=== PATIENT | male | born 1950 | race Caucasian/White ===

== ENCOUNTER 2019-07-08 23:21 | Observation (INO) | payer BC, MEDICARE ==
--- NOTE | 2019-07-09 01:24 | ED ---
Chest Pain HPI - General Chief Complaint: Arrhythmia/Palpitations Stated Complaint: afib Time Seen by Provider: 07/08/19 23:40 Source: EMS Mode of arrival: EMS Limitations: no limitations - History of Present Illness Initial Comments: 's patient is a 69-year-old man who presents as a transfer from [facility]. The patient had gone there this evening to be evaluated for number of symptoms that had developed over the course of the afternoon and evening. The patient states that he initially had started feeling a bit of fatigue in the afternoon. He had subsequently gone to a golf outing. While he was there he noticed that his breathing felt a little funny, he was having some pains into his left shoulder and scapular area. He was also noticing that he was having some substernal chest discomfort that he felt was like reflux or gas. The patient on arriving home had his preempted emergency department. He was there the found he was in atrial fibrillation with a rate above 200. The patient was not aware of having any palpitations. The patient had been started on Cardizem receiving a 20 mg bolus and he was also given 2.5 mg of Lopressor, also received heparin bolus.. The patient then appeared to revert to sinus rhythm and his symptoms also resolved. When I interview the patient, he states that he is feeling much better though there is just a touch of fatigue remaining. No chest pain, dyspnea, diaphoresis, nausea or vomiting when I am seeing the patient. MD Complaint: chest pain -: hour(s) Onset: during exertion Pain Location: substernal, left chest Pain Radiation: LUE, neck Severity: moderate Quality: aching Consistency: now resolved Improves With: nothing Worsens With: nothing Anginal Symptoms: nausea, dyspnea Treatments Prior to Arrival: aspirin, other (Cardizem, heparin) - Related Data Home Medications Medication Instructions Recorded Confirmed Allopurinol [Zyloprim] 300 mg PO DAILY@0700 07/09/19 07/09/19 Aspirin EC [Ecotrin Low Dose] 81 mg PO DAILY 07/09/19 07/09/19 Atorvastatin [Lipitor] 40 mg PO HS 07/09/19 07/09/19 Empagliflozin [Jardiance] 25 mg PO W/BRKFST 07/09/19 07/09/19 Garlic 1 tab PO DAILY 07/09/19 07/09/19 Lisinopril [Zestril] 20 mg PO DAILY@0700 07/09/19 07/09/19 Omeprazole 40 mg PO DAILY@0700 07/09/19 07/09/19 Pioglitazone [Actos] 15 mg PO W/SUPPER 07/09/19 07/09/19 Testosterone Cypionate 200 mg IM Q30D 07/09/19 07/09/19 [Depo-Testosterone] Turmeric Root Extract [Turmeric] 500 mg PO DAILY 07/09/19 07/09/19 sitaGLIPtin [Januvia] 100 mg PO W/LUNCH 07/09/19 07/09/19 Previous Rx's Medication Instructions Recorded Apixaban [Eliquis] 5 mg PO BID #60 tab 07/10/19 Allergies Allergy/AdvReac Type Severity Reaction Status Date / Time No Known Allergies Allergy Verified 07/09/19 07:12 Review of Systems ROS Statement: Those systems with pertinent positive or pertinent negative responses have been documented in the HPI. ROS Other: All systems not noted in ROS Statement are negative. Constitutional: Denies: fever, chills Respiratory: Reports: dyspnea. Denies: cough Cardiovascular: Reports: chest pain. Denies: palpitations, orthopnea, edema, syncope Gastrointestinal: Reports: nausea. Denies: abdominal pain, vomiting Genitourinary: Denies: dysuria, hematuria Musculoskeletal: Denies: back pain Skin: Denies: rash Neurological: Denies: headache, weakness, numbness Psychiatric: Reports: anxiety Past Medical History Past Medical History: Atrial Fibrillation, Cancer, Diabetes Mellitus History of Any Multi-Drug Resistant Organisms: None Reported Past Surgical History: No Surgical Hx Reported Past Psychological History: No Psychological Hx Reported Smoking Status: Light tobacco smoker Past Alcohol Use History: Occasional Past Drug Use History: None Reported General Exam Limitations: no limitations General appearance: alert, in no apparent distress Head exam: Present: atraumatic, normocephalic Eye exam: Present: normal appearance. Absent: scleral icterus, conjunctival injection Neck exam: Present: normal inspection Respiratory exam: Present: normal lung sounds bilaterally. Absent: respiratory distress, wheezes, rales, rhonchi, stridor Cardiovascular Exam: Present: regular rate, normal rhythm, normal heart sounds. Absent: systolic murmur, diastolic murmur, rubs, gallop GI/Abdominal exam: Present: soft. Absent: distended, tenderness, guarding, rebound, rigid, mass Extremities exam: Present: normal inspection, normal capillary refill. Absent: pedal edema, calf tenderness Back exam: Present: normal inspection Neurological exam: Present: alert Skin exam: Present: warm, dry, intact, normal color. Absent: rash Course Vital Signs 07/08/19 07/09/19 07/09/19 23:30 00:00 00:30 Temperature 98.7 F Pulse Rate 63 69 64 Respiratory 26 H 12 18 Rate Blood Pressure 110/95 128/72 124/77 O2 Sat by Pulse 98 96 98 Oximetry 07/09/19 01:00 Temperature Pulse Rate 69 Respiratory 20 Rate Blood Pressure 123/72 O2 Sat by Pulse 96 Oximetry Disposition Clinical Impression: Atrial fibrillation with rapid ventricular response, Chest pain Disposition: ADMITTED IP TO THIS HOSP Condition: Fair Is patient prescribed a controlled substance at d/c from ED?: No
[2019-07-09 03:23] VITALS: BMI 53.1
[2019-07-09 06:37] LABS: Glucose,Whole Blood 97 mg/dL (75-99)
[2019-07-09 07:53] LABS: Basophils % (A) 0 %; Eosinophils # (A) 0.1 k/uL (0-0.7); Eosinophils % (A) 2 %; HCT 51.3 % (39.0-53.0); HGB 16.5 gm/dL (13.0-17.5); Lymphocytes # (A) 1.1 k/uL (1.0-4.8); Lymphocytes % (A) 12 %; MCH 31.9 pg (25.0-35.0); MCHC 32.3 g/dL (31.0-37.0); MCV 98.9 fL (80.0-100.0); Macrocytosis Slight; Mean Platelet Volume 7.2; Monocytes # (A) 0.9 k/uL (0-1.0); Monocytes % (A) 10 %; Neutrophils # (A) 6.4 k/uL (1.3-7.7); Neutrophils % (A) 73 %; Platelet Count 177 k/uL (150-450); RBC 5.19 m/uL (4.30-5.90); RDW 14.6 % (11.5-15.5); WBC 8.8 k/uL (3.8-10.6)
[2019-07-09] MEDS: SODIUM CHLORIDE 0.9% 1,000 ML IV SCH ×4 (07:56→21:17)
[2019-07-09 08:03] LABS: Calcium 9.1 mg/dL (8.4-10.2)
[2019-07-09] MEDS: NITROGLYCERIN SL TABS 0.4 MG TAB SUBLINGUAL PRN ×3 (08:52→09:02)
[2019-07-09] MEDS ORDERED: HEPARIN SODIUM,PORCINE 5,000 UNIT/ML 1 ML VIAL IV PRN (09:07)
[2019-07-09] MEDS ORDERED: HEPARIN SODIUM,PORCINE 5,000 UNIT/ML 1 ML VIAL IV ONE (09:07)
--- NOTE | 2019-07-09 09:17 | P.CRDCN ---
History of Present Illness Consult date: 07/09/19 Requesting physician: Cristal Clifford Consult reason: atrial fibrillation Chief complaint: Chest pressure History of present illness: His is a pleasant 69-year-old gentleman with history of hypertension, hyperlipidemia, diabetes, occasionally he states that he smokes a cigar when he coughs. He presented to [facility] yesterday with symptoms of chest tightness with radiation into his left arm, and across his posterior scapula area. His symptoms initially started around 2:00 while he was at work, he still went out and played golf, he states he was on the 11th: And chest tightness became worse, he did have discomfort in his left arm as well as an scapula area again. He also states that he noticed himself to be short of breath with this. He was quite concerned about the way he was feeling so he went to [facility] for further evaluation and treatment. EKG on presentation there showed atrial fibrillation with a rapid ventricular response, ST depression noted in t he lateral leads, his heart rate on presentation there did go up to the 200 range. Patient was initiated on IV Cardizem and IV heparin, shortly after the Cardizem was initiated patient did convert to normal sinus rhythm. Subsequent Ekg showed normal sinus rythm w ST changes in inferior lateral lead. The patient denies any prior history of atrial fibrillation, he does state that he had seen Dr. Cavanaugh in the office previously and underwent stress testing but this was several years ago according to the patient. Chest x-ray performed at [facility] did not reveal any active cardiopulmonary disease. White blood cell count 8.3, hemoglobin 17, platelet count 185. Sodium 140, potassium 4.5, BUN 26, creatinine 2.2, magnesium 2.1, BNP 138 troponin 0.018. Blood pressure on arrival here 125/70 with a heart rate in the 70s, afebrile, 94% on room air. Patient is complaining of midsternal chest pressure and heaviness this morning, he is in a normal sinus rhythm, we did obtain an EKG shows normal sinus rhythm with no acute changes. White blood cell count is normal, hemoglobin 16.5, plat elet count 177. Sodium 140, potassium 4.0, BUN 24 and creatinine 1.2, troponins 0.013, 0.020. At [facility] the patient was initiated on IV heparin as well as IV Cardizem, he did received a one-time dose of IV Lopressor. He is not on heparin here. Past Medical History Past Medical History: Atrial Fibrillation, Cancer, Diabetes Mellitus History of Any Multi-Drug Resistant Organisms: None Reported Past Surgical History: No Surgical Hx Reported Past Anesthesia/Blood Transfusion Reactions: No Reported Reaction Past Psychological History: No Psychological Hx Reported Smoking Status: Light tobacco smoker Past Alcohol Use History: Occasional Past Drug Use History: None Reported Medications and Allergies Home Medications Medication Instructions Recorded Confirmed Type Allopurinol [Zyloprim] 300 mg PO DAILY@0700 07/09/19 07/09/19 History Aspirin EC [Ecotrin Low Dose] 81 mg PO DAILY 07/09/19 07/09/19 History Atorvastatin [Lipitor] 40 mg PO HS 07/09/19 07/09/19 History Empagliflozin [Jardiance] 25 mg PO W/BRKFST 07/09/19 07/09/19 History Garlic 1 tab PO DAILY 07/09/19 07/09/19 History Lisinopril [Zestril] 20 mg PO DAILY@0700 07/09/19 07/09/19 History Omeprazole 40 mg PO DAILY@0700 07/09/19 07/09/19 History Pioglitazone [Actos] 15 mg PO W/SUPPER 07/09/19 07/09/19 History Testosterone Cypionate 200 mg IM Q30D 07/09/19 07/09/19 History [Depo-Testosterone] Turmeric Root Extract [Turmeric] 500 mg PO DAILY 07/09/19 07/09/19 History sitaGLIPtin [Januvia] 100 mg PO W/LUNCH 07/09/19 07/09/19 History Allergies Allergy/AdvReac Type Severity Reaction Status Date / Time No Known Allergies Allergy Verified 07/09/19 07:12 Physical Exam Vitals: Vital Signs Temp Pulse Pulse Resp BP BP Pulse Ox 07/09/19 07:56 98.5 F 79 16 125/70 94 L 07/09/19 04:00 98.5 F 60 16 117/62 96 07/09/19 01:59 98.2 F 54 L 16 116/64 95 07/09/19 01:00 69 20 123/72 96 07/09/19 00:30 64 18 124/77 98 07/09/19 00:00 69 12 128/72 96 07/08/19 23:30 98.7 F 63 26 H 110/95 98 Intake and Output 07/08/19 07/09/19 07/09/19 22:59 06:59 14:59 Intake Total 300 240 Balance 300 240 Intake: Oral 300 240 Other: # Voids 2 Weight 95.708 kg PHYSICAL EXAMINATION: GENERAL:69-year-old gentleman in no acute distress at the time of my examination HEENT: Head is atraumatic, normocephalic. Pupils equal, round. Sclera anicteric. Conjunctiva are clear. Mucous membranes of the mouth are moist. Neck is supple. There is no elevated jugular venous pressure. No carotid bruit is heard. HEART EXAMINATION: Heart S1 and S2 normal no murmur or gallop heard CHEST EXAMINATION: Lungs reveal fine rales to bilateral bases. ABDOMEN: Soft, nontender. Bowel sounds are heard. No organomegaly noted. EXTREMITIES: 2+ peripheral pulses with no evidence of peripheral edema and no calf tenderness noted. NEUROLOGIC patient is awake, alert and oriented 3 . Results 07/09/19 07:33 07/09/19 07:33 Cardiac Enzymes 07/09/19 07/09/19 Range/Units 01:44 07:33 Troponin I 0.013 0.020 (0.000-0.034) ng/mL CBC 07/09/19 Range/Units 07:33 WBC 8.8 (3.8-10.6) k/uL RBC 5.19 (4.30-5.90) m/uL Hgb 16.5 (13.0-17.5) gm/dL Hct 51.3 (39.0-53.0) % Plt Count 177 (150-450) k/uL Comprehensive Metabolic Panel 07/09/19 Range/Units 07:33 Sodium 140 (137-145) mmol/L Potassium 4.0 (3.5-5.1) mmol/L Chloride 109 H (98-107) mmol/L Carbon Dioxide 22 (22-30) mmol/L BUN 24 H (9-20) mg/dL Creatinine 1.24 (0.66-1.25) mg/dL Glucose 126 H (74-99) mg/dL Calcium 9.1 (8.4-10.2) mg/dL Current Medications Generic Name Dose Route Start Last Admin Trade Name Marlee PRN Reason Stop Dose Admin Aspirin 325 mg 07/10/19 09:00 Aspirin PO DAILY [facility] Sodium Chloride 1,000 mls @ 20 mls/hr 07/08/19 23:45 07/09/19 07:56 Saline 0.9% IV Not Given .Q24H [facility] Nitroglycerin 0.4 mg 07/08/19 23:59 07/09/19 08:57 Nitrostat SUBLINGUAL 0.4 mg Q5M PRN Administration Chest Pain Intake and Output 07/08/19 07/09/19 07/09/19 22:59 06:59 14:59 Intake Total 300 240 Balance 300 240 Intake: Oral 300 240 Other: # Voids 2 Weight 95.708 kg 07/09/19 07:33 07/09/19 07:33 EKG Interpretations (text) Initial EKG showed atrial fibrillation with rapid ventricular response, ST depression noted in the lateral leads. EKG performed this morning shows normal sinus rhythm with ST changes in inferior lateral leads Assessment and Plan Plan: Assessment and plan #1 symptoms of chest pressure with radiation to the left arm and across the scapula with associated shortness of breath, likely secondary to A. fib with RVR, cannot completely rule out acute coronary syndrome. Troponin at [place] 0.018. Troponin 0.014 and 0.020. #2 atrial fibrillation with rapid ventricular response, paroxysmal, new onset #3 hypertension #4 hyperlipidemia #5 diabetes #6 nicotine dependence Plan We will obtain a stat chest x-ray as well as BNP level, TSH, and d-dimer. Initiate IV heparin per protocol. Start the patient on Lipitor 80. Continue aspirin, and initiate low-dose beta karina. Obtain subsequent troponin. Stat echocardiogram with Doppler study. Patient is in normal sinus rhythm with ST-T wave changes in the inferior lateral leads, and continues to have chest pressure, he has been advised to undergo an urgent cardiac catheterization, the risks and the benefits were explained to the patient in detail and he is willing to proceed. Further recommendations will be based on these findings and the patient's clinical course. DNP note has been reviewed, I agree with a documented findings and plan of care. Patient was seen and examined.
[2019-07-09] MEDS: HEPARIN SOD,PORK IN 0.45% NACL 25,000 UNIT in 0.45% NACL 1 250ML.BAG IV SCH (09:26)
[2019-07-09] MEDS ORDERED: ASPIRIN 325 MG TAB PO STA (09:33)
[2019-07-09] MEDS ORDERED: ATORVASTATIN 80 MG TAB PO STA (09:34)
[2019-07-09 09:51] LABS: D-Dimer 0.27 mg/L FEU (<0.60); INR 0.9 (<1.2); Partial Thromboplastin Time 27.1 sec (22.0-30.0); Prothrombin Time 9.8 sec (9.0-12.0)
--- NOTE | 2019-07-09 10:02 | XR ---
EXAMINATION TYPE: XR chest 1V portable DATE OF EXAM: 07/09/2019 COMPARISON: Prior chest x-ray 07/08/2019 HISTORY: Shortness of breath, atrial fibrillation TECHNIQUE: Single frontal view of the chest is obtained. FINDINGS: There is no focal air space opacity, pleural effusion, or pneumothorax seen. The cardiac silhouette size is within normal limits. The osseous structures are intact. There are overlying car diac leads. Minimal strand-like density at the lung bases likely reflect subsegmental atelectatic dahiana nge. IMPRESSION: There may be some minimal basilar atelectatic change.
[2019-07-09] MEDS ORDERED: MIDAZOLAM PF (FBP) 2 MG/2 ML VIAL IVP ONE (10:20)
[2019-07-09] MEDS ORDERED: LIDOCAINE 2% INJ 20 MG/ML SQ ONE ×2 (10:21)
[2019-07-09] MEDS ORDERED: SODIUM CHLORIDE 0.9% 1,000 ML IV ONE (10:28)
[2019-07-09] MEDS ORDERED: IOPAMIDOL-370 100ML BTL INJ ONE (10:33)
[2019-07-09] MEDS ORDERED: RX INFO: IV CONTRAST WAS GIVEN 1 EACH MISC MISCELLANE PRN (10:39)
--- NOTE | 2019-07-09 11:38 | CC ---
CARDIAC CATHETERIZATION REPORT INDICATION: Unstable angina. PROCEDURE NOTE: After obtaining informed consent, left heart catheterization and coronary angiogram are performed via the right femoral artery using standard Dalton catheters. The patient tolerated the procedure well without any obvious immediate complications. Patient received moderate conscious sedation. Total sedation time was 14 minutes. The patient will undergo Angio-Seal for hemostasis. FINDINGS: 1. HEMODYNAMICS: Left ventricular end-diastolic pressure is 8 to 12 mm. There is no significant gradient across the aortic valve. 2. LEFT VENTRICULOGRAM: The left ventriculogram is not performed. 3. ANGIOGRAPHIC DATA: Left Main Coronary Artery: Left main coronary artery appears mildly calcified but is free of significant stenosis. Divides into left anterior descending coronary artery and circumflex coronary artery. LAD and its branches are free of significant disease. Circumflex coronary artery which is a nondominant vessel in the very distal circumflex the vessel tapers and ends abruptly I do not know whether it is a natural anatomy or if it is a stump occlusion. I am going to have Dr. Taveras the on-call property insurance claims examiner review it. Right coronary artery is a large dominant vessel that shows 30% to 40% stenosis distally. CONCLUSION: Mild nonobstructive coronary artery disease. PLAN: Will review angiographic data with Dr. Taveras regarding the small distal circumflex coronary artery. Even if it is totally occluded, we will not be doing anything about it given how distal it is and how small a caliber of vessel it is. The patient does not have any troponin elevation, but I am told he had some wall motion abnormalities on the echo. MMODL / IJN: [id number] /
[2019-07-09 12:25] LABS: Glucose,Whole Blood 109 mg/dL (75-99)
[2019-07-09] MEDS: LINAGLIPTIN 5 MG TABLET PO SCH (12:28)
[2019-07-09 16:12] VITALS: RESP 16
[2019-07-09 17:01] LABS: Glucose,Whole Blood 123 mg/dL (75-99)
[2019-07-09] MEDS ORDERED: PIOGLITAZONE 15 MG TAB PO SCH (17:30)
[2019-07-09 20:55] LABS: Glucose,Whole Blood 123 mg/dL (75-99)
[2019-07-09] MEDS ORDERED: ATORVASTATIN 40 MG TAB PO SCH (21:00)
[2019-07-10 03:19] LABS: Anisocytosis Slight; Basophils % (A) 0 %; Eosinophils # (A) 0.2 k/uL (0-0.7); Eosinophils % (A) 2 %; HCT 48.7 % (39.0-53.0); HGB 15.5 gm/dL (13.0-17.5); Lymphocytes # (A) 1.4 k/uL (1.0-4.8); Lymphocytes % (A) 15 %; MCH 31.8 pg (25.0-35.0); MCHC 31.9 g/dL (31.0-37.0); MCV 99.7 fL (80.0-100.0); Macrocytosis Slight; Mean Platelet Volume 7.3; Monocytes # (A) 0.9 k/uL (0-1.0); Monocytes % (A) 9 %; Neutrophils % (A) 72 %; Platelet Count 150 k/uL (150-450); RBC 4.89 m/uL (4.30-5.90); RDW 16.2 % (11.5-15.5); WBC 9.8 k/uL (3.8-10.6)
[2019-07-10 03:38] LABS: Cholesterol 112 mg/dL (<200); HDL Cholesterol 56 mg/dL (40-60); LDL Cholesterol,Calculated 41 mg/dL (0-99); Triglycerides 77 mg/dL (<150)
[2019-07-10 06:23] LABS: Glucose,Whole Blood 107 mg/dL (75-99)
[2019-07-10] MEDS ORDERED: ALLOPURINOL 300 MG TAB PO SCH (07:00)
[2019-07-10] MEDS ORDERED: PANTOPRAZOLE 40 MG TABLET PO SCH (07:00)
[2019-07-10] MEDS ORDERED: LISINOPRIL 20 MG TAB PO SCH (07:00)
[2019-07-10] MEDS ORDERED: NON FORMULARY DRUG (Empagliflozin [Jardiance] 25 MG) PO SCH (07:30)
[2019-07-10] MEDS: HEPARIN SOD,PORK IN 0.45% NACL 25,000 UNIT in 0.45% NACL 1 250ML.BAG IV SCH (08:59)
[2019-07-10] MEDS ORDERED: ASPIRIN 81 MG PO SCH (09:00)
[2019-07-10] MEDS ORDERED: ASPIRIN 325 MG TAB PO SCH (09:00)
[2019-07-10 09:03] VITALS: TEMP 98.2
[2019-07-10] MEDS ORDERED: APIXABAN 5 MG TAB PO SCH (10:45)
--- NOTE | 2019-07-10 11:07 | P.HPIM ---
History of Present Illness H&P Date: 07/09/19 69-year-old gentleman came in with compensative chest tightness found to be in atrial fibrillation does have elevated troponin underwent a radical catheterization. Cardiac catheter did not show any significant abnormality and chest pain is believed to be secondary to A. fib with rapid ventricular rate there was epigastric depression lateral leads. Patient troponin was minimally elevated to 0.018 creatinine was 2.2, patient was not in heart failure BNP is 138 patient the denied any shortness of breath diaphoresis. Patient chest pain is not related to food chest pain moderate severity radiating to the back.. Creatinine here was is 1.2. Troponins were 0.013 and 0.020. Review of Systems REVIEW OF SYSTEMS: CONSTITUTIONAL: No fever, no malaise, no fatigue. HEENT: No recent visual problems or hearing problems. Denied any sore throat. CARDIOVASCULAR: No orthopnea, PND, no palpitations, no syncope. PULMONARY: No shortness of breath, no cough, no hemoptysis. GASTROINTESTINAL: No diarrhea, no nausea, no vomiting, no abdominal pain. NEUROLOGICAL: No headaches, no weakness, no numbness. HEMATOLOGICAL: Denies any bleeding or petechiae. GENITOURINARY: Denies any burning micturition, frequency, or urgency. MUSCULOSKELETAL/RHEUMATOLOGICAL: Denies any joint pain, swelling, or any muscle pain. ENDOCRINE: Denies any polyuria or polydipsia. The rest of the 14-point review of systems is negative. Past Medical History Past Medical History: Atrial Fibrillation, Cancer, Diabetes Mellitus History of Any Multi-Drug Resistant Organisms: None Reported Past Surgical History: No Surgical Hx Reported Past Anesthesia/Blood Transfusion Reactions: No Reported Reaction Past Psychological History: No Psychological Hx Reported Smoking Status: Light tobacco smoker Past Alcohol Use History: Occasional Past Drug Use History: None Reported Medications and Allergies Home Medications Medication Instructions Recorded Confirmed Type Allopurinol [Zyloprim] 300 mg PO DAILY@0700 07/09/19 07/09/19 History Aspirin EC [Ecotrin Low Dose] 81 mg PO DAILY 07/09/19 07/09/19 History Atorvastatin [Lipitor] 40 mg PO HS 07/09/19 07/09/19 History Empagliflozin [Jardiance] 25 mg PO W/BRKFST 07/09/19 07/09/19 History Garlic 1 tab PO DAILY 07/09/19 07/09/19 History Lisinopril [Zestril] 20 mg PO DAILY@0700 07/09/19 07/09/19 History Omeprazole 40 mg PO DAILY@0700 07/09/19 07/09/19 History Pioglitazone [Actos] 15 mg PO W/SUPPER 07/09/19 07/09/19 History Testosterone Cypionate 200 mg IM Q30D 07/09/19 07/09/19 History [Depo-Testosterone] Turmeric Root Extract [Turmeric] 500 mg PO DAILY 07/09/19 07/09/19 History sitaGLIPtin [Januvia] 100 mg PO W/LUNCH 07/09/19 07/09/19 History Allergies Allergy/AdvReac Type Severity Reaction Status Date / Time No Known Allergies Allergy Verified 07/09/19 07:12 Physical Exam Vitals: Vital Signs Temp Pulse Resp BP Pulse Ox 07/10/19 08:45 98.2 F 72 16 94/51 94 L 07/10/19 03:40 98.4 F 72 16 124/75 97 07/10/19 03:39 87 16 07/10/19 00:00 98.6 F 87 16 136/84 98 07/09/19 20:00 98.3 F 80 16 128/72 97 07/09/19 19:42 97 07/09/19 16:00 77 16 127/80 97 07/09/19 13:24 82 18 129/72 94 L 07/09/19 12:24 77 18 126/71 95 07/09/19 11:54 78 16 128/70 94 L 07/09/19 11:23 79 16 125/72 96 07/09/19 11:08 78 16 125/67 96 Intake and Output 07/09/19 07/10/19 07/10/19 22:59 06:59 14:59 Intake Total 357.167 600 132.833 Balance 357.167 600 132.833 Intake: Intake, IV Titration 117.167 600 132.833 Amount Heparin Sod,Pork in 0.45% 117.167 132.833 NaCl 25,000 unit In 0.45 % NaCl 1 250ml.bag @ 10. 448 UNITS/KG/HR 10 mls/hr IV .Q24H [facility] Rx#: [id number] Sodium Chloride 0.9% 1, 600 000 ml @ 75 mls/hr IV . [id number] [facility] Rx#:[id number] Oral 240 Other: # Voids 3 3 Weight 95.2 kg PHYSICAL EXAMINATION: GENERAL: The patient is alert and oriented x3, not in any acute distress. Well developed, well nourished. HEENT: Pupils are round and equally reacting to light. EOMI. No scleral icterus. No conjunctival pallor. Normocephalic, atraumatic. No pharyngeal erythema. No thyromegaly. CARDIOVASCULAR: S1 and S2 present. No murmurs, rubs, or gallops. PULMONARY: Chest is clear to auscultation, no wheezing or crackles. ABDOMEN: Soft, nontender, nondistended, normoactive bowel sounds. No palpable organomegaly. MUSCULOSKELETAL: No joint swelling or deformity. EXTREMITIES: No cyanosis, clubbing, or pedal edema. NEUROLOGICAL: Gross neurological examination did not reveal any focal deficits. SKIN: No rashes. Results CBC & Chem 7: 07/10/19 03:01 07/09/19 07:33 Labs: Abnormal Lab Results - Last 24 Hours (Table) 07/09/19 07/09/19 07/09/19 Range/Units 12:08 16:56 19:52 RDW (11.5-15.5) % APTT 32.5 H (22.0-30.0) sec POC Glucose (mg/dL) 109 H 123 H (75-99) mg/dL 07/09/19 07/10/19 07/10/19 Range/Units 20:53 03:01 03:01 RDW 16.2 H (11.5-15.5) % APTT 55.4 H (22.0-30.0) sec POC Glucose (mg/dL) 123 H (75-99) mg/dL 07/10/19 Range/Units 06:19 RDW (11.5-15.5) % APTT (22.0-30.0) sec POC Glucose (mg/dL) 107 H (75-99) mg/dL Thrombosis Risk Factor Assmnt - Choose All That Apply Any of the Below Risk Factors Present?: Yes Each Factor Represents 1 point: Obesity (BMI >25) Other Risk Factors: Yes Each Risk Factor Represents 2 Points: Age 61-74 years Other congenital or acquired thrombophilia - If yes, enter type in comment: No Thrombosis Risk Factor Assessment Total Risk Factor Score: 3 Thrombosis Risk Factor Assessment Level: Moderate Risk Assessment and Plan Plan: -chest pressure: type II non-ST elevation I can't infarction probably from atrial fibrillation patient has clean coronaries on cardiac catheterization -Atrial fibrillation presently rate controlled patient appears to proximal A. fib will require a long-term anti-correlation probably with Eliquis next and- hypertension next and-hyperlipidemia -Type 2 diabetes mellitus - nicotine dependence1 counseling was provided acute renal failure, prerenal azotemia from probably from atrial fibrillation improved now
--- NOTE | 2019-07-10 11:08 | P.DS ---
Providers Date of admission: 07/09/19 00:04 Attending physician: Cristal Clifford Consults: 07/09/19 00:00 Consult Physician Routine Consulting Provider: Antony Taveras Consult Reason/Comments: Atrial fibrillation with rapid ventricular rate Do you want consulting provider notified?: Yes Primary care physician: Evin Sumaya [facility] Course: patient was admitted for chest pain probably secondary to atrial fibrillation, chest pain resolved patient on cardiac original which did not show any significant atherosclerotic coronary occlusive disease. Patient will be discharged today on Eliquis patient is presently rate controlled. PHYSICAL EXAMINATION: GENERAL: The patient is alert and oriented x3, not in any acute distress. Well developed, well nourished. HEENT: Pupils are round and equally reacting to light. EOMI. No scleral icterus. No conjunctival pallor. Normocephalic, atraumatic. No pharyngeal erythema. No thyromegaly. CARDIOVASCULAR: S1 and S2 present. No murmurs, rubs, or gallops. PULMONARY: Chest is clear to auscultation, no wheezing or crackles. ABDOMEN: Soft, nontender, nondistended, normoactive bowel sounds. No palpable organomegaly. MUSCULOSKELETAL: No joint swelling or deformity. EXTREMITIES: No cyanosis, clubbing, or pedal edema. NEUROLOGICAL: Gross neurological examination did not reveal any focal deficits. SKIN: No rashes. He is referred to my dictation of H&P for further he does of hospital physician course and other medical problems that were addressed during this hospitalization Plan - Discharge Summary Discharge Rx Participant: No New Discharge Prescriptions: Continue Pioglitazone [Actos] 15 mg PO W/SUPPER sitaGLIPtin [Januvia] 100 mg PO W/LUNCH Omeprazole 40 mg PO DAILY@0700 Lisinopril [Zestril] 20 mg PO DAILY@0700 Empagliflozin [Jardiance] 25 mg PO W/BRKFST Atorvastatin [Lipitor] 40 mg PO HS Allopurinol [Zyloprim] 300 mg PO DAILY@0700 Testosterone Cypionate [Depo-Testosterone] 200 mg IM Q30D Aspirin EC [Ecotrin Low Dose] 81 mg PO DAILY Turmeric Root Extract [Turmeric] 500 mg PO DAILY Garlic 1 tab PO DAILY Discharge Medication List Allopurinol [Zyloprim] 300 mg PO DAILY@0700 07/09/19 [History] Aspirin EC [Ecotrin Low Dose] 81 mg PO DAILY 07/09/19 [History] Atorvastatin [Lipitor] 40 mg PO HS 07/09/19 [History] Empagliflozin [Jardiance] 25 mg PO W/BRKFST 07/09/19 [History] Garlic 1 tab PO DAILY 07/09/19 [History] Lisinopril [Zestril] 20 mg PO DAILY@0700 07/09/19 [History] Omeprazole 40 mg PO DAILY@0700 07/09/19 [History] Pioglitazone [Actos] 15 mg PO W/SUPPER 07/09/19 [History] Testosterone Cypionate [Depo-Testosterone] 200 mg IM Q30D 07/09/19 [History] Turmeric Root Extract [Turmeric] 500 mg PO DAILY 07/09/19 [History] sitaGLIPtin [Januvia] 100 mg PO W/LUNCH 07/09/19 [History] Follow up Appointment(s)/Referral(s): Evin Shell MD [Primary Care Provider] - 07/17/19 2:30 pm ([phone] Monday at [facility]) Bebo Cavanaugh MD [STAFF PHYSICIAN] - 07/26/19 2:30 pm (Monday in [place]) Patient Instructions/Handouts: *Surgery [facility] - After Heart Catheterization - Word[employer] Developer Instructions, A-fib (Atrial Fibrillation) (DC), Left Heart Catheterization (DC), Safe Use of Anticoagulants (DC)
[2019-07-10 11:46] LABS: Glucose,Whole Blood 112 mg/dL (75-99)
[2019-07-10 11:55] VITALS: BP 107/66; PULSE 70
[2019-07-10] MEDS: LINAGLIPTIN 5 MG TABLET PO SCH (12:32)
--- NOTE | 2019-07-10 12:53 | ECHOF ---
Referral Reason:assess lvf MEASUREMENTS -------- HEIGHT: 188.0 cm WEIGHT: 95.7 kg BP: RVIDd: 3.3 cm (< 3.3) IVSd: 1.5 cm (0.6 - 1.1) LVIDd: 4.4 cm (3.9 - 5.3) LVPWd: 1.4 cm (0.6 - 1.1) IVSs: 1.6 cm LVIDs: 2.8 cm LVPWs: 1.5 cm LA Diam: 4.5 cm (2.7 - 3.8) LAESV Index (A-L): 37.88 ml/m Ao Diam: 3.0 cm (2.0 - 3.7) AV Cusp: 1.9 cm (1.5 - 2.6) LA Diam: 4.8 cm (2.7 - 3.8) MV EXCURSION: 21.757 mm (> 18.000) MV EF SLOPE: 176 mm/s (70 - 150) EPSS: 0.9 cm MV E Fei: 0.69 m/s MV DecT: 136 ms MV A Fei: 0.49 m/s MV E/A Ratio: 1.40 RAP: 5.00 mmHg RVSP: 26.47 mmHg FINDINGS -------- Undetermined rhythm. This was a techncally difficult study with suboptimal views, , Lumason utilized for enhancement of im ages. The left ventricular size is normal. There is mild concentric left ventricular hypertrophy. Overa ll left ventricular systolic function is low-normal with, an EF between 50 - 55 %. Basal inferior L V wall motion is hypokinetic. The right ventricle is mildly enlarged. The right atrial size is normal. 5.0mg OF Lumason UTLIZED: 2 OR MORE WALL SEGMENTS NOT VISUALIZED. The aortic valve is trileaflet, and appears structurally normal. No aortic stenosis or regurgitation. Mild mitral annular calcification present. Mild mitral regurgitation is present. Mild tricuspid regurgitation present. There is no evidence of pulmonary hypertension. The right v entricular systolic pressure, as measured by Doppler, is 26.47mmHg. The aortic root size is normal. There is no pericardial effusion. CONCLUSIONS -------- 1. Undetermined rhythm. 2. This was a techncally difficult study with suboptimal views, , Lumason utilized for enhancement of images. 3. The left ventricular size is normal. 4. There is mild concentric left ventricular hypertrophy. 5. Overall left ventricular systolic function is low-normal with, an EF between 50 - 55 %. 6. Basal inferior LV wall motion is hypokinetic. 7. The right ventricle is mildly enlarged. 8. The right atrial size is normal. 9. 5.0mg OF Lumason UTLIZED: 2 OR MORE WALL SEGMENTS NOT VISUALIZED. 10. The aortic valve is trileaflet, and appears structurally normal. No aortic stenosis or regurgitat ion. 11. Mild mitral annular calcification present. 12. Mild mitral regurgitation is present. 13. Mild tricuspid regurgitation present. 14. There is no evidence of pulmonary hypertension. 15. The right ventricular systolic pressure, as measured by Doppler, is 26.47mmHg. 16. The aortic root size is normal. 17. There is no pericardial effusion. CLOTH TRIMMER HAND: aMry Beth Bullock RDCS
--- NOTE | 2019-07-10 14:42 | P.PN ---
Subjective Progress Note Date: 07/10/19 His is a pleasant 69-year-old gentleman with history of hypertension, hyperlipidemia, diabetes, occasionally he states that he smokes a cigar when he coughs. He presented to [facility] yesterday with symptoms of chest tightness with radiation into his left arm, and across his posterior scapula area. His symptoms initially started around 2:00 while he was at work, he still went out and played golf, he states he was on the 11th: And chest tightness became worse, he did have discomfort in his left arm as well as an scapula area again. He also states that he noticed himself to be short of breath with this. He was quite concerned about the way he was feeling so he went to [facility] for further evaluation and treatment. EKG on presentation there showed atrial fibrillation with a rapid ventricular response, ST depression noted in the lateral leads, his heart rate on presentation there did go up to the 200 range. Patient was initiated on IV Cardizem and IV heparin, shortly after the Cardizem was initiated patient did convert to normal sinus rhythm. Subsequent Ekg showed normal sinus rythm w ST changes in inferior lateral lead. The patient denies any prior history of atrial fibrillation, he does state that he had seen Dr. Cavanaugh in the office previously and underwent stress testing but this was several years ago according to the patient. Chest x-ray performed at [facility] did not reveal any active cardiopulmonary disease. White blood cell count 8.3, hemoglobin 17, platelet count 185. Sodium 140, potassium 4.5, BUN 26, creatinine 2.2, magnesium 2.1, BNP 138 troponin 0.018. Blood pressure on arrival here 125/70 with a heart rate in the 70s, afebrile, 94% on room air. Patient is complaining of midsternal chest pressure and heaviness this morning, he is in a normal sinus rhythm, we did obtain an EKG shows normal sinus rhythm with no acute changes. White blood cell count is normal, hemoglobin 16.5, platelet count 177. Sodium 140, potassium 4.0, BUN 24 and creatinine 1.2, troponins 0.013, 0.020. At [facility] the patient was initiated on IV heparin as well as IV Cardizem, he did received a one-time dose of IV Lopressor. He is not on heparin here. 07/10/2019 Patient underwent a cardiac catheterization yesterday which revealed mild nonobstructive coronary examined this morning, continues to be in a normal sinus rhythm, feels well, no shortness of breath, no chest discomfort, and no palpitations. Echocardiogram with Doppler study was performed which revealed an ejection fraction of 50-55%. Blood pressure 108/66 with a heart rate in the 70s. White blood cell count 9.8, hemoglobin 15.5, platelet count 150. Objective - Vital Signs Vital signs: Vital Signs Temp 98.2 F 07/10/19 08:45 Pulse 70 07/10/19 11:50 Resp 16 07/10/19 11:50 BP 107/66 07/10/19 11:50 Pulse Ox 96 07/10/19 11:50 Intake & Output 07/09/19 07/10/19 07/10/19 18:59 06:59 18:59 Intake Total 995 717.167 132.833 Balance 995 717.167 132.833 Weight 95.2 kg Intake: IV 50 Intake, IV Titration 225 717.167 132.833 Amount Heparin Sod,Pork in 0.45% 117.167 132.833 NaCl 25,000 unit In 0.45 % NaCl 1 250ml.bag @ 10. 448 UNITS/KG/HR 10 mls/hr IV .Q24H [facility]ILMER Rx#: [id number] Sodium Chloride 0.9% 1, 225 600 000 ml @ 75 mls/hr IV . [id number] WILMER Rx#:[id number] Oral 720 Other: # Voids 0 3 - Exam PHYSICAL EXAMINATION: GENERAL:69-year-old gentleman in no acute distress at the time of my examination HEENT: Head is atraumatic, normocephalic. Pupils equal, round. Sclera anicteric. Conjunctiva are clear. Mucous membranes of the mouth are moist. Neck is supple. There is no elevated jugular venous pressure. No carotid bruit is heard. HEART EXAMINATION: Heart S1 and S2 normal no murmur or gallop heard CHEST EXAMINATION: Lungs reveal fine rales to bilateral bases. ABDOMEN: Soft, nontender. Bowel sounds are heard. No organomegaly noted. EXTREMITIES: 2+ peripheral pulses with no evidence of peripheral edema and no calf tenderness noted. NEUROLOGIC patient is awake, alert and oriented 3 - Labs CBC & Chem 7: 07/10/19 03:01 07/09/19 07:33 Labs: Abnormal Lab Results - Last 24 Hours (Table) 07/09/19 07/09/19 07/09/19 Range/Units 16:56 19:52 20:53 RDW (11.5-15.5) % APTT 32.5 H (22.0-30.0) sec POC Glucose (mg/dL) 123 H 123 H (75-99) mg/dL 07/10/19 07/10/19 07/10/19 Range/Units 03:01 03:01 06:19 RDW 16.2 H (11.5-15.5) % APTT 55.4 H (22.0-30.0) sec POC Glucose (mg/dL) 107 H (75-99) mg/dL 07/10/19 Range/Units 11:43 RDW (11.5-15.5) % APTT (22.0-30.0) sec POC Glucose (mg/dL) 112 H (75-99) mg/dL Assessment and Plan Plan: Assessment and plan #1 symptoms of chest pressure with radiation to the left arm and across the scapula with associated shortness of breath, likely secondary to A. fib with RVR, cannot completely rule out acute coronary syndrome. Troponin at [place] 0.018. Troponin 0.014 and 0.020. That is post cardiac catheterization, which revealed mild nonobstructive coronary artery #2 atrial fibrillation with rapid ventricular response, paroxysmal, new onset #3 hypertension #4 hyperlipidemia #5 diabetes #6 nicotine dependence Plan Echocardiogram with Doppler study was performed which revealed an ejection fraction of 50-55% with basal inferior hypokinesia. Patient may be able to be discharged home today, we'll make a follow-up appointment for him to see Dr. Calvo in the office post discharge. Patient will go home on anticoagulation in the form of Eliquis 5 mg one tablet by mouth twice a day. DNP note has been reviewed, I agree with a documented findings and plan of care. Patient was seen and examined.
== END 2019-07-10 13:02 | disposition home or self-care (01) ==
LOC: EC 23:21 → 3SCARD 07-09 00:04
PROVIDERS: ADMIT Hospitalist; ATTEND Hospitalist
DX: R07.89 Other chest pain (principal); R06.02 Shortness of breath; M79.602 Pain in left arm; R11.0 Nausea; R06.00 Dyspnea, unspecified; R77.8 Other specified abnormalities of plasma proteins; R79.89 Other specified abnormal findings of blood chemistry; M25.519 Pain in unspecified shoulder; I48.0 Paroxysmal atrial fibrillation; I10 Essential (primary) hypertension; E78.5 Hyperlipidemia, unspecified; E11.9 Type 2 diabetes mellitus without complications; N17.9 Acute kidney failure, unspecified; F17.290 Nicotine dependence, other tobacco product, uncomplicated; I25.110 Atherosclerotic heart disease of native coronary artery with unstable angina pectoris; E66.9 Obesity, unspecified; Z68.23 Body mass index [BMI] 23.0-23.9, adult; Z85.9 Personal history of malignant neoplasm, unspecified; Z79.899 Other long term (current) drug therapy; Z79.82 Long term (current) use of aspirin; Z79.84 Long term (current) use of oral hypoglycemic drugs
CPT/HCPCS: 93005 ×2; 96376; 96365; 99285; 94760; 93306; 93458; 85379; 83880; 80061; 80048; 83735; 84443; 84484; 85025 ×2; 85610; 85730 ×2; 71045; G0378 ×2; C1760; C1894; C1769; J2001; J1644 ×3; Q9950; Q9967; J2250

== ENCOUNTER 2019-07-17 18:36 | Inpatient (IN) | payer BC, MEDICARE ==
[2019-07-17] MEDS ORDERED: DILTIAZEM DRIP BOLUS FROM BAG 1 MG SOLN IV ONE (18:46)
[2019-07-17] MEDS ORDERED: NITROGLYCERIN SL TABS 0.4 MG TAB SUBLINGUAL PRN (18:46)
--- NOTE | 2019-07-17 18:50 | ED ---
Arrhythmia/Palpitations HPI - General Stated Complaint: afib Time Seen by Provider: 07/17/19 18:45 Source: RN notes reviewed, old records reviewed - History of Present Illness Initial Comments: This is a 61-year-old male the ER for evaluation. Patient accepted in transfer for cardiology evaluation regarding persistent atrial fibrillation with RVR. Patient does feel lightheaded and dizzy heart rate remains fast feels palpitat ions mild shortness of breath. No recent change in medications. Denies any significant drugs alcohol no fevers. No current chest pain. MD Complaint: rapid heart beat, "heart racing", atrial fibrillation -: hour(s) Arrhythmia History: atrial fibrillation Associated Symptoms: shortness of breath - Related Data Home Medications Medication Instructions Recorded Confirmed Allopurinol [Zyloprim] 300 mg PO DAILY@0700 07/09/19 07/09/19 Aspirin EC [Ecotrin Low Dose] 81 mg PO DAILY 07/09/19 07/09/19 Atorvastatin [Lipitor] 40 mg PO HS 07/09/19 07/09/19 Empagliflozin [Jardiance] 25 mg PO W/BRKFST 07/09/19 07/09/19 Garlic 1 tab PO DAILY 07/09/19 07/09/19 Lisinopril [Zestril] 20 mg PO DAILY@0700 07/09/19 07/09/19 Omeprazole 40 mg PO DAILY@0700 07/09/19 07/09/19 Pioglitazone [Actos] 15 mg PO W/SUPPER 07/09/19 07/09/19 Testosterone Cypionate 200 mg IM Q30D 07/09/19 07/09/19 [Depo-Testosterone] Turmeric Root Extract [Turmeric] 500 mg PO DAILY 07/09/19 07/09/19 sitaGLIPtin [Januvia] 100 mg PO W/LUNCH 07/09/19 07/09/19 Previous Rx's Medication Instructions Recorded Apixaban [Eliquis] 5 mg PO BID #60 tab 07/10/19 Allergies Allergy/AdvReac Type Severity Reaction Status Date / Time No Known Allergies Allergy Verified 07/09/19 07:12 Review of Systems ROS Statement: Those systems with pertinent positive or pertinent negative responses have been documented in the HPI. ROS Other: All systems not noted in ROS Statement are negative. Past Medical History Past Medical History: Atrial Fibrillation, Cancer, Diabetes Mellitus History of Any Multi-Drug Resistant Organisms: None Reported Past Surgical History: No Surgical Hx Reported Past Anesthesia/Blood Transfusion Reactions: No Reported Reaction Past Psychological History: No Psychological Hx Reported Smoking Status: Light tobacco smoker Past Alcohol Use History: Occasional Past Drug Use History: None Reported General Exam General appearance: alert, anxious Head exam: Present: atraumatic, normocephalic, normal inspection Eye exam: Present: normal appearance, PERRL, EOMI. Absent: scleral icterus, conjunctival injection, periorbital swelling ENT exam: Present: normal exam, mucous membranes moist Neck exam: Present: normal inspection. Absent: tenderness, meningismus, lymphadenopathy Respiratory exam: Present: normal lung sounds bilaterally. Absent: respiratory distress, wheezes, rales, rhonchi, stridor Cardiovascular Exam: Present: tachycardia, irregular rhythm, normal heart sounds. Absent: systolic murmur, diastolic murmur, rubs, gallop, clicks GI/Abdominal exam: Present: soft, normal bowel sounds. Absent: distended, tenderness, guarding, rebound, rigid Extremities exam: Present: normal inspection, full ROM, normal capillary refill. Absent: tenderness, pedal edema, joint swelling, calf tenderness Back exam: Present: normal inspection Neurological exam: Present: alert, oriented X3, CN II-XII intact Psychiatric exam: Present: normal affect, normal mood Skin exam: Present: warm, dry, intact, normal color. Absent: rash Course - Reevaluation(s) Reevaluation #1: 07/17/19 18:50 Medical record is reviewed Reevaluation #2: 07/17/19 18:50 Patient A. fib with RVR we will improvement, on anticoagulation Medical Decision Making - Medical Decision Making 69 male the ER for evaluation history of atrial fibrillation will be admitted for H of fibrillation with RVR cardiology evaluation Disposition Clinical Impression: Atrial fibrillation with rapid ventricular response Disposition: ADMITTED IP TO THIS HOSP Condition: Good Is patient prescribed a controlled substance at d/c from ED?: No Referrals: Evin Shell MD [Primary Care Provider] - 1-2 days
[2019-07-17] MEDS: SODIUM CHLORIDE 0.9% 1,000 ML IV SCH (19:07)
[2019-07-17] MEDS: DILTIAZEM 125 MG in SODIUM CHLORIDE 0.9% 100 ML IV SCH (19:11)
[2019-07-17 20:19] LABS: Glucose,Whole Blood 111 mg/dL (75-99)
[2019-07-17] MEDS: METOPROLOL TARTRATE 25 MG TAB PO SCH (21:42)
[2019-07-17] MEDS: APIXABAN 5 MG TAB PO SCH (23:10)
[2019-07-17 23:31] LABS: Calcium 8.7 mg/dL (8.4-10.2); Total Bilirubin 1.4 mg/dL (0.2-1.3); Total Protein 6.1 g/dL (6.3-8.2)
[2019-07-17 23:32] LABS: Potassium 4.8 mmol/L (3.5-5.1)
[2019-07-18 05:53] LABS: Glucose,Whole Blood 128 mg/dL (75-99)
[2019-07-18] MEDS: SODIUM CHLORIDE 0.9% 1,000 ML IV SCH ×3 (06:04→18:46)
[2019-07-18 06:42] LABS: Basophils # (A) 0.1 k/uL (0-0.2); Basophils % (A) 1 %; Eosinophils # (A) 0.1 k/uL (0-0.7); Eosinophils % (A) 1 %; HCT 43.8 % (39.0-53.0); HGB 14.2 gm/dL (13.0-17.5); Lymphocytes # (A) 1.6 k/uL (1.0-4.8); Lymphocytes % (A) 20 %; MCHC 32.5 g/dL (31.0-37.0); MCV 98.3 fL (80.0-100.0); Mean Platelet Volume 6.9; Monocytes # (A) 0.8 k/uL (0-1.0); Monocytes % (A) 10 %; Neutrophils # (A) 5.3 k/uL (1.3-7.7); Neutrophils % (A) 65 %; Platelet Count 297 k/uL (150-450); RBC 4.45 m/uL (4.30-5.90); RDW 13.8 % (11.5-15.5); WBC 8.2 k/uL (3.8-10.6)
[2019-07-18] MEDS: ALLOPURINOL 300 MG TAB PO SCH (06:47)
[2019-07-18] MEDS: PANTOPRAZOLE 40 MG TABLET PO SCH (06:47)
[2019-07-18 06:53] LABS: Cholesterol 96 mg/dL (<200); HDL Cholesterol 32 mg/dL (40-60); LDL Cholesterol,Calculated 48 mg/dL (0-99); Triglycerides 80 mg/dL (<150)
[2019-07-18] MEDS ORDERED: LISINOPRIL 20 MG TAB PO SCH (07:00)
[2019-07-18] MEDS ORDERED: ASPIRIN 325 MG TAB PO SCH (09:00)
[2019-07-18] MEDS ORDERED: ASPIRIN 81 MG PO SCH (09:00)
--- NOTE | 2019-07-18 09:05 | P.CRDCN ---
History of Present Illness Consult date: 07/18/19 Requesting physician: Cristal Clifford Consult reason: atrial flutter Chief complaint: Fatigue History of present illness: This is a pleasant 61-year-old gentleman with history of hypertension, hyperlipidemia, diabetes, occasional cigar smoking, who was just discharged from the hospital one week ago, he was transferred on that admission from [facility], where he presented with symptoms of chest discomfort, was found to be in atrial fibrillation with rapid ventricular response and transferred here. Patient did convert to normal sinus rhythm. He did have an echo performed on at admission which revealed an ejection fraction of 50-55%. He also underwent a cardiac catheterization on the of this month which revealed mild nonobstructive coronary artery disease and medical therapy was advised at that time. Overall the patient states he's been doing well, he states that he was golfing on Monday, felt more fatigued than usual, but denied any palpitations, no shortness of breath. He went to see his primary care doctor on Monday for a routine follow-up after his hospitalization, his heart rate there was noted to be in the 140 range, blood pressure 90 systolic, and patient was recommended to go directly to the emergency room for further evaluation and treatment. His EKG on presentation here showed atrial flutter with a heart rate of 146, patient was initiated on IV Cardizem, continued to be in a flutter, but the subsequent EKG showed a rate of 90. Blood pressure on arrival here 128/70 with a heart rate of 60, 97% on room air. Blood pressure this morning 97/60 with a heart rate in the 90s, 94% on room air. Blood cell count 8.2, hemoglobin 14.2, platelet count 297. Sodium 138, potassium 4.8, BUN 30 and creatinine 1.1. Total bilirubin 1.4, AST 63, ALT 87, troponins negative 2. At the time of my examination this morning, the patient feels well, he is asymptomatic, no complaints. Past Medical History Past Medical History: Atrial Fibrillation, Cancer, Diabetes Mellitus Additional Past Medical History / Comment(s): skin CA; kidney stones removal 12 years ago History of Any Multi-Drug Resistant Organisms: None Reported Past Surgical History: No Surgical Hx Reported Past Anesthesia/Blood Transfusion Reactions: No Reported Reaction Smoking Status: Light tobacco smoker - Past Family History Mother Additional Family Medical History / Comment(s): PAncreatic CA Father Additional Family Medical History / Comment(s): suicide d/t CA Medications and Allergies Home Medications Medication Instructions Recorded Confirmed Type Allopurinol [Zyloprim] 300 mg PO DAILY@0700 07/09/19 07/17/19 History Aspirin EC [Ecotrin Low Dose] 81 mg PO DAILY 07/09/19 07/17/19 History Atorvastatin [Lipitor] 40 mg PO HS 07/09/19 07/17/19 History Empagliflozin [Jardiance] 25 mg PO AC-BRKFST 07/09/19 07/17/19 History Garlic 1 tab PO DAILY@1000 07/09/19 07/17/19 History Lisinopril [Zestril] 20 mg PO DAILY@0700 07/09/19 07/17/19 History Omeprazole 40 mg PO DAILY@0700 07/09/19 07/17/19 History Pioglitazone [Actos] 15 mg PO AC-SUPPER 07/09/19 07/17/19 History Testosterone Cypionate 200 mg IM Q30D 07/09/19 07/17/19 History [Depo-Testosterone] Turmeric Root Extract [Turmeric] 500 mg PO DAILY@1000 07/09/19 07/17/19 History sitaGLIPtin [Januvia] 100 mg PO AC-LUNCH 07/09/19 07/17/19 History Apixaban [Eliquis] 5 mg PO BID #60 tab 07/10/19 07/17/19 Rx Allergies Allergy/AdvReac Type Severity Reaction Status Date / Time No Known Allergies Allergy Verified 07/17/19 18:54 Physical Exam Vitals: Vital Signs Temp Pulse Pulse Resp BP BP Pulse Ox 07/18/19 08:00 98.1 F 97 20 97/60 94 L 07/18/19 04:00 99 18 97/60 07/18/19 00:00 75 18 97/57 97 07/17/19 21:21 97.8 F 145 H 18 135/72 97 07/17/19 20:00 145 H 18 07/17/19 19:54 98.7 F 140 H 18 112/60 98 07/17/19 19:30 146 H 20 115/82 96 07/17/19 19:18 144 H 20 115/82 96 07/17/19 19:00 144 H 20 116/91 98 07/17/19 18:51 83 L 07/17/19 18:49 98.2 F 147 H 20 116/91 98 07/17/19 18:45 145 H Intake and Output 07/17/19 07/18/19 07/18/19 22:59 06:59 14:59 Intake Total 423.282 4277 360 Balance 046.320 5126 360 Intake: Intake, IV Titration 08 1820 Amount Diltiazem 125 mg In .08 20 Sodium Chloride 0.9% 100 ml @ 5 MG/HR 5 mls/hr IV .Q24H [facility] Rx#:[id number] Sodium Chloride 0.9% 1, 1800 000 ml @ 100 mls/hr IV . Q10H [facility] Rx#:[id number] Oral 500 200 360 Other: Voiding Method Toilet Toilet # Voids 1 2 Weight 94.801 kg 94.2 kg PHYSICAL EXAMINATION: GENERAL: 69-year-old gentleman in no acute distress at the time of my examination HEENT: Head is atraumatic, normocephalic. Pupils equal, round. Sclera anicteric. Conjunctiva are clear. Mucous membranes of the mouth are moist. Neck is supple. There is no elevated jugular venous pressure. No carotid bruit is heard. HEART EXAMINATION: Heart S1 and S2 irregularly irregular CHEST EXAMINATION: As reveal fine crackles to bilateral bases. ABDOMEN: Soft, nontender. Bowel sounds are heard. No organomegaly noted. EXTREMITIES: 2+ peripheral pulses with trace evidence of peripheral edema and no calf tenderness noted. NEUROLOGIC patient is awake, alert and oriented 3 . . Results 07/18/19 05:44 07/17/19 22:55 Cardiac Enzymes 07/17/19 07/17/19 07/18/19 Range/Units 22:55 22:55 05:44 AST 63 H (17-59) U/L Troponin I <0.012 <0.012 (0.000-0.034) ng/mL Lipids 07/18/19 Range/Units 05:44 Triglycerides 80 (<150) mg/dL Cholesterol 96 (<200) mg/dL HDL Cholesterol 32 L (40-60) mg/dL CBC 07/18/19 Range/Units 05:44 WBC 8.2 (3.8-10.6) k/uL RBC 4.45 (4.30-5.90) m/uL Hgb 14.2 (13.0-17.5) gm/dL Hct 43.8 (39.0-53.0) % Plt Count 297 (150-450) k/uL Comprehensive Metabolic Panel 07/17/19 Range/Units 22:55 Sodium 138 (137-145) mmol/L Potassium 4.8 (3.5-5.1) mmol/L Chloride 112 H (98-107) mmol/L Carbon Dioxide 19 L (22-30) mmol/L BUN 30 H (9-20) mg/dL Creatinine 1.18 (0.66-1.25) mg/dL Glucose 135 H (74-99) mg/dL Calcium 8.7 (8.4-10.2) mg/dL AST 63 H (17-59) U/L ALT 87 H (21-72) U/L Alkaline Phosphatase 57 (38-126) U/L Total Protein 6.1 L (6.3-8.2) g/dL Albumin 3.0 L (3.5-5.0) g/dL Current Medications Generic Name Dose Route Start Last Admin Trade Name Freq PRN Reason Stop Dose Admin Allopurinol 300 mg 07/18/19 07:00 07/18/19 06:47 Zyloprim PO 300 mg DAILY@0700 [facility] Administration Apixaban 5 mg 07/17/19 22:00 07/17/19 23:10 Eliquis PO 5 mg BID [facility] Administration Aspirin 325 mg 07/18/19 09:00 Aspirin PO DAILY [facility] Aspirin 81 mg 07/18/19 09:00 Aspirin PO DAILY [facility] Atorvastatin Calcium 80 mg 07/18/19 09:00 Lipitor PO DAILY [facility] Diltiazem HCl 125 mg/ Sodium 125 mls @ 5 mls/hr 07/17/19 19:00 07/17/19 23:00 Chloride IV 15 mg/hr .Q24H [facility] 15 mls/hr Infusion 5 MG/HR Sodium Chloride 1,000 mls @ 100 mls/hr 07/17/19 19:00 07/18/19 06:04 Saline 0.9% IV Not Given .Q10H [facility] Linagliptin 5 mg 07/18/19 12:30 Tradjenta PO AC-LUNCH [facility] Lisinopril 20 mg 07/18/19 07:00 Zestril PO DAILY@0700 [facility] Metoprolol Tartrate 25 mg 07/17/19 21:00 07/17/19 21:42 Lopressor PO 25 mg BID [facility] Administration Nitroglycerin 0.4 mg 07/17/19 18:46 Nitrostat SUBLINGUAL Q5M PRN Chest Pain Non-Formulary Medication 25 mg 07/18/19 07:30 Empagliflozin [Jardiance] PO AC-BRKFST [facility] Pantoprazole Sodium 40 mg 07/18/19 07:00 07/18/19 06:47 Protonix PO 40 mg DAILY@0700 [facility] Administration Pioglitazone HCl 15 mg 07/18/19 17:30 Actos PO AC-SUPPER [facility] Intake and Output 07/17/19 07/18/19 07/18/19 22:59 06:59 14:59 Intake Total 931.452 4239 360 Balance 645.160 8966 360 Intake: Intake, IV Titration 9.083 1820 Amount Diltiazem 125 mg In 9.083 20 Sodium Chloride 0.9% 100 ml @ 5 MG/HR 5 mls/hr IV .Q24H [facility] Rx#:[id number] Sodium Chloride 0.9% 1, 1800 000 ml @ 100 mls/hr IV . Q10H [facility] Rx#:[id number] Oral 500 200 360 Other: Voiding Method Toilet Toilet # Voids 1 2 Weight 94.801 kg 94.2 kg 07/18/19 05:44 07/17/19 22:55 EKG Interpretations (text) EKG on presentation here showed atrial flutter with a rapid ventricular response Assessment and Plan Plan: Assessment and plan #1 atrial flutter with rapid ventricular response #2 recent admission with [place] beltre with RVR, paroxysmal #3 cardiac catheterization performed earlier this month showed mild nonobstructive coronary artery disease #4 hypertension #5 diabetes #6 hyperlipidemia #7 Occasional cigar smoking Plan We will discontinue the 325 mg dose of aspirin, continue the Eliquis 5 twice a day along with a baby aspirin, Lipitor, lisinopril, metoprolol, attempt to the discontinue the IV Cardizem. We will not repeat an echo as the patient had one approximately a week ago which revealed an ejection fraction of 50-55%. His TSH on that admission was normal at 1.4. The patient was not discharged home on a beta karina because of significant bradycardia. Patient may benefit from the addition of an antiarrhythmic, as well as a consultation with Dr. Agrawal. Further recommendations to follow. DNP note has been reviewed, I agree with a documented findings and plan of care. Patient was seen and examined.
[2019-07-18] MEDS: DILTIAZEM 125 MG in SODIUM CHLORIDE 0.9% 100 ML IV SCH (09:25)
[2019-07-18] MEDS: APIXABAN 5 MG TAB PO SCH ×2 (09:37→20:48)
[2019-07-18] MEDS: NON FORMULARY DRUG (Empagliflozin [Jardiance] 25 MG) PO SCH (09:37)
[2019-07-18] MEDS: ATORVASTATIN 80 MG TAB PO SCH (09:38)
[2019-07-18] MEDS: METOPROLOL TARTRATE 25 MG TAB PO SCH ×2 (09:38→18:45)
[2019-07-18] MEDS ORDERED: NON FORMULARY DRUG (Garlic [Garlic] 1 TAB) PO SCH (10:00)
[2019-07-18] MEDS ORDERED: NON FORMULARY DRUG (Turmeric Root Extract [Turmeric] 500 MG) PO SCH (10:00)
[2019-07-18] MEDS: LINAGLIPTIN 5 MG TABLET PO SCH (12:10)
[2019-07-18 12:27] LABS: Glucose,Whole Blood 111 mg/dL (75-99)
[2019-07-18 17:00] LABS: Glucose,Whole Blood 118 mg/dL (75-99)
[2019-07-18] MEDS: PIOGLITAZONE 15 MG TAB PO SCH (17:35)
[2019-07-18 20:13] LABS: Glucose,Whole Blood 115 mg/dL (75-99)
[2019-07-18] MEDS ORDERED: DILTIAZEM 125 MG in SODIUM CHLORIDE 0.9% 100 ML IV SCH (20:15)
--- NOTE | 2019-07-18 23:10 | P.HPIM ---
History of Present Illness H&P Date: 07/18/19 Chief Complaint: Atrial fibrillation Jannie youngblood is a 69-year-old male with a known history of diabetes, recently diagnosed atrial fibrillation, hyperlipidemia was sent to Hospital due to it fibrillation with rapid ventricular rate by his PCPs office. Patient was discharged from the hospital about a week ago. Patient was initially transferred from [facility] due to atrial fibrillation with rapid ventricular rate. Patient did convert to sinus rhythm. Patient was continued on anticoagulation. Patient was not on beta blockers due to (bradycardia while in the hospital. She didn't was recommended to follow with cardiology clinic. Patient went to see his primary care physician and his heart rate was noted to be 140s. Patient was sent to ER evaluation. EKG showed atrial flutter with heart rate of 146 Sodium 138 potassium 4.8 creatinine 1.1 and BUN 30 Bili was 1.4 AST 63 and ALT 87 troponin 2 negative Currently patient is still in atrial flutter. Review of Systems Constitutional: Patient denies any fever or chills . No generalized weakness or weight loss. Abdomen: Patient denied nausea vomiting and diarrhea and abdominal pain. Cardiovascular: Patient denies any chest pain or short of breath no palpitati ons. Respiratory: patient denied any cough is from production. No shortness of breath Neurologic: Patient denied any numbness or tingling headache. Musculoskeletal: Patient denies any complaints of joint swelling or deformity. Skin: Negative Psychiatric: Negative Endocrine: No heat or cold intolerance. No recent weight gain. Genitourinary: No dysuria or hematuria. All other 14 point ROS negative except the above Past Medical History Past Medical History: Atrial Fibrillation, Cancer, Diabetes Mellitus Additional Past Medical History / Comment(s): skin CA; kidney stones removal 12 years ago History of Any Multi-Drug Resistant Organisms: None Reported Past Surgical History: No Surgical Hx Reported Past Anesthesia/Blood Transfusion Reactions: No Reported Reaction Smoking Status: Light tobacco smoker - Past Family History Mother Additional Family Medical History / Comment(s): PAncreatic CA Father Additional Family Medical History / Comment(s): suicide d/t CA Medications and Allergies Home Medications Medication Instructions Recorded Confirmed Type Allopurinol [Zyloprim] 300 mg PO DAILY@0700 07/09/19 07/17/19 History Aspirin EC [Ecotrin Low Dose] 81 mg PO DAILY 07/09/19 07/17/19 History Atorvastatin [Lipitor] 40 mg PO HS 07/09/19 07/17/19 History Empagliflozin [Jardiance] 25 mg PO AC-BRKFST 07/09/19 07/17/19 History Garlic 1 tab PO DAILY@1000 07/09/19 07/17/19 History Lisinopril [Zestril] 20 mg PO DAILY@0700 07/09/19 07/17/19 History Omeprazole 40 mg PO DAILY@0700 07/09/19 07/17/19 History Pioglitazone [Actos] 15 mg PO AC-SUPPER 07/09/19 07/17/19 History Testosterone Cypionate 200 mg IM Q30D 07/09/19 07/17/19 History [Depo-Testosterone] Turmeric Root Extract [Turmeric] 500 mg PO DAILY@1000 07/09/19 07/17/19 History sitaGLIPtin [Januvia] 100 mg PO AC-LUNCH 07/09/19 07/17/19 History Apixaban [Eliquis] 5 mg PO BID #60 tab 07/10/19 07/17/19 Rx Allergies Allergy/AdvReac Type Severity Reaction Status Date / Time No Known Allergies Allergy Verified 07/17/19 18:54 Physical Exam Vitals: Vital Signs Temp Pulse Pulse Resp BP BP Pulse Ox 07/18/19 08:00 98.1 F 97 20 97/60 94 L 07/18/19 04:00 99 18 97/60 07/18/19 00:00 75 18 97/57 97 07/17/19 21:21 97.8 F 145 H 18 135/72 97 07/17/19 20:00 145 H 18 07/17/19 19:54 98.7 F 140 H 18 112/60 98 07/17/19 19:30 146 H 20 115/82 96 07/17/19 19:18 144 H 20 115/82 96 07/17/19 19:00 144 H 20 116/91 98 07/17/19 18:51 83 L 07/17/19 18:49 98.2 F 147 H 20 116/91 98 07/17/19 18:45 145 H Intake and Output 07/17/19 07/18/19 07/18/19 22:59 06:59 14:59 Intake Total 889.235 8159 360 Balance 066.744 6570 360 Intake: Intake, IV Titration 1820 Amount Diltiazem 125 mg In 20 Sodium Chloride 0.9% 100 ml @ 5 MG/HR 5 mls/hr IV .Q24H [facility] Rx#:[id number] Sodium Chloride 0.9% 1, 1800 000 ml @ 100 mls/hr IV . Q10H [facility] Rx#:[id number] Oral 500 200 360 Other: Voiding Method Toilet Toilet # Voids 1 2 Weight 94.801 kg 94.2 kg PHYSICAL EXAMINATION: Patient is lying in the bed comfortably, no acute distress, awake alert and oriented.. HEENT: Normocephalic. Neck is supple. Pupils reactive. Nostrils clear. Oral cavity is moist. Ears reveal no drainage. Neck reveals no JVD, carotid bruits, or thyromegaly. CHEST EXAMINATION: Trachea is central. Symmetrical expansion. Lung wolf clear to auscultation and percussion. CARDIAC: Normal S1, S2 with no gallops. No murmurs . Irregular rhythm ABDOMEN: Soft. Bowel sounds normal. No organomegaly. No abdominal bruits. Extremities: reveal no edema. No clubbing or cyanosis Neurologically awake, alert, oriented x3 with well-coordinated movements. No focal deficits noted Skin: No rash or skin lesions. Psychiatric: Coperative. Nonsuicidal Musculoskeletal: No joint swelling or deformity. Normal range of motion. Results CBC & Chem 7: 07/18/19 05:44 07/17/19 22:55 Labs: Abnormal Lab Results - Last 24 Hours (Table) 07/17/19 07/17/19 07/18/19 Range/Units 20:18 22:55 05:44 Chloride 112 H (98-107) mmol/L Carbon Dioxide 19 L (22-30) mmol/L BUN 30 H (9-20) mg/dL Glucose 135 H (74-99) mg/dL POC Glucose (mg/dL) 111 H (75-99) mg/dL Total Bilirubin 1.4 H (0.2-1.3) mg/dL AST 63 H (17-59) U/L ALT 87 H (21-72) U/L Total Protein 6.1 L (6.3-8.2) g/dL Albumin 3.0 L (3.5-5.0) g/dL HDL Cholesterol 32 L (40-60) mg/dL 07/18/19 Range/Units 05:50 Chloride (98-107) mmol/L Carbon Dioxide (22-30) mmol/L BUN (9-20) mg/dL Glucose (74-99) mg/dL POC Glucose (mg/dL) 128 H (75-99) mg/dL Total Bilirubin (0.2-1.3) mg/dL AST (17-59) U/L ALT (21-72) U/L Total Protein (6.3-8.2) g/dL Albumin (3.5-5.0) g/dL HDL Cholesterol (40-60) mg/dL Thrombosis Risk Factor Assmnt - DVT/VTE Prophylaxis DVT/VTE Prophylaxis: Pharmacologic Prophylaxis ordered - Choose All That Apply Any of the Below Risk Factors Present?: No Each Risk Factor Represents 2 Points: Age 61-74 years Thrombosis Risk Factor Assessment Total Risk Factor Score: 2 Thrombosis Risk Factor Assessment Level: Low Risk Assessment and Plan Assessment: Atrial flutter with rapid ventricular rate Recently diagnosed A. fib with RVR paroxysmal converted to sinus rhythm that time Hypertension, diabetes type 2, hyperlipidemia Mildly elevated liver enzymes/transaminitis. Occasional cigar smoking Plan: Currently patient is being continued on Cardizem drip. Continue with anticoagulation with Eliquis. Patient is being continued on metoprolol, lisinopril and atorvastatin. Recent echocardiogram showed ejection fraction 50-55%. Recent cardiac catheterization in early this month showed mild nonobstructive coronary artery disease. Patient is still in atrial fibrillation. Consulted EP for further evaluation. Cardiology is on board. Further recommendations based on the clinical course. Time with Patient: Greater than 30
[2019-07-19 06:00] LABS: Glucose,Whole Blood 110 mg/dL (75-99)
[2019-07-19 06:32] LABS: Basophils # (A) 0.1 k/uL (0-0.2); Basophils % (A) 1 %; Eosinophils # (A) 0.1 k/uL (0-0.7); Eosinophils % (A) 2 %; HCT 44.5 % (39.0-53.0); HGB 14.3 gm/dL (13.0-17.5); Lymphocytes # (A) 1.4 k/uL (1.0-4.8); Lymphocytes % (A) 17 %; MCH 31.5 pg (25.0-35.0); MCHC 32.1 g/dL (31.0-37.0); MCV 98.1 fL (80.0-100.0); Mean Platelet Volume 6.9; Monocytes # (A) 0.7 k/uL (0-1.0); Monocytes % (A) 8 %; Neutrophils # (A) 5.9 k/uL (1.3-7.7); Neutrophils % (A) 71 %; Platelet Count 299 k/uL (150-450); RBC 4.54 m/uL (4.30-5.90); RDW 13.7 % (11.5-15.5); WBC 8.3 k/uL (3.8-10.6)
[2019-07-19 06:38] LABS: Albumin 3.2 g/dL (3.5-5.0); Calcium 9.1 mg/dL (8.4-10.2); Potassium 4.6 mmol/L (3.5-5.1); Total Bilirubin 1.5 mg/dL (0.2-1.3); Total Protein 6.2 g/dL (6.3-8.2)
[2019-07-19] MEDS: ALLOPURINOL 300 MG TAB PO SCH (06:49)
[2019-07-19] MEDS: PANTOPRAZOLE 40 MG TABLET PO SCH (06:49)
[2019-07-19] MEDS ORDERED: LISINOPRIL 10 MG TAB PO SCH (07:00)
--- NOTE | 2019-07-19 08:17 | P.CRDCN ---
History of Present Illness History of present illness: This is Dr. Agrawal dictating a consult on this patient The patient was interviewed and examined by me IMPRESSION / ASSESSMENT: Admitted with symptomatic atrial flutter with RVR 246 beats a minute with low blood pressure Paroxysmal atrial fibrillation with RVR Mild inferior wall hypokinesis with an occluded distal left circumflex by coronary angiography. LV function is 50-55% with inferior wall hypokinesis Hypertension Dyslipidemia Diabetes Current smoker PLAN: Lifelong anticoagulation, elevated SIERRA VASC score Stop IV Cardizem after increasing metoprolol dose and adding digoxin 0.25 mg by mouth daily Proceed with atrial flutter ablation within the month after continuing ELIQUIS for about 4 weeks If his rates are not controlled with the above strategy then low-dose amiodarone 400 mg by mouth daily for about a month or 2 could be used as a temporary measure HPI patient presents to the hospital with tiredness fatigue and some nausea and dizziness while playing cough. He went to his primary care physician and was found to be in in atrial flutter with a heart rate about 145 beats a minute but his blood pressure was 90 mmHg systolic and he was directed to go to the hosp ital The first telemetry showed atrial flutter with a heart rate of 146 beats a minute and instruction IV Cardizem ROS: No fever chills or rigors, no cough, phlegm or expectoration, no nausea, vomiting or diarrhea, no hematuria, dysuria, no musculoskeletal complaints, no strokes or seizures, no skin lesions. EXAMINATION: Blood pressure 140/72 mmHg pulse rate 107 beats minute irregular afebrile 98.2F Breath sounds are clear no rhonchi no crackles Heart sounds are irregular normal no murmurs or gallops. Abdomen soft extremities are warm Patient is sitting comfortably in bed REVIEW OF LABS, ECG & MEDICAL DATA past history of diabetes, hypertension, cigar smoking and now infrequent alcohol use History of dyslipidemia on atorvastatin Patient on ELIQUIS 5 mg twice daily Sodium 139 potassium 4.6 BUN 21 creatinine 1.08 Abnormal liver functions ALT 142 AST 93 Twelve-lead ECG shows typical atrial flutter Cardiac catheterization on 07/26/2019 showed mild CAD with possibly a small dis sherice left circumflex which was probably totally occluded at its very distal portion, small caliber vessel Left radical ejection fraction of 50-55% History of paroxysmal atrial fibrillation 2-D echo shows mild left ventricular hypertrophy with low-normal ejection fraction of 50-55% with basal inferior wall hypokinesis RV is mildly enlarged Past Medical History Past Medical History: Atrial Fibrillation, Cancer, Diabetes Mellitus Additional Past Medical History / Comment(s): skin CA; kidney stones removal 12 years ago History of Any Multi-Drug Resistant Organisms: None Reported Past Surgical History: No Surgical Hx Reported Additional Past Surgical History / Comment(s): heart cath no stent 07/09/2019 Past Anesthesia/Blood Transfusion Reactions: No Reported Reaction Past Psychological History: No Psychological Hx Reported Smoking Status: Light tobacco smoker Past Alcohol Use History: Occasional Past Drug Use History: None Reported - Past Family History Mother Additional Family Medical History / Comment(s): PAncreatic CA Father Additional Family Medical History / Comment(s): suicide d/t CA Medications and Allergies Home Medications Medication Instructions Recorded Confirmed Type Allopurinol [Zyloprim] 300 mg PO DAILY@0700 07/09/19 07/17/19 History Aspirin EC [Ecotrin Low Dose] 81 mg PO DAILY 07/09/19 07/17/19 History Atorvastatin [Lipitor] 40 mg PO HS 07/09/19 07/17/19 History Empagliflozin [Jardiance] 25 mg PO AC-BRKFST 07/09/19 07/17/19 History Garlic 1 tab PO DAILY@1000 07/09/19 07/17/19 History Lisinopril [Zestril] 20 mg PO DAILY@0700 07/09/19 07/17/19 History Omeprazole 40 mg PO DAILY@0700 07/09/19 07/17/19 History Pioglitazone [Actos] 15 mg PO AC-SUPPER 07/09/19 07/17/19 History Testosterone Cypionate 200 mg IM Q30D 07/09/19 07/17/19 History [Depo-Testosterone] Turmeric Root Extract [Turmeric] 500 mg PO DAILY@1000 07/09/19 07/17/19 History sitaGLIPtin [Januvia] 100 mg PO AC-LUNCH 07/09/19 07/17/19 History Apixaban [Eliquis] 5 mg PO BID #60 tab 07/10/19 07/17/19 Rx Allergies Allergy/AdvReac Type Severity Reaction Status Date / Time No Known Allergies Allergy Verified 07/17/19 18:54 Physical Exam Vitals: Vital Signs Temp Pulse Resp BP Pulse Ox 07/19/19 04:00 98.2 F 107 H 19 114/72 95 07/19/19 03:26 86 19 07/18/19 23:29 86 19 07/18/19 23:26 86 19 96/60 95 07/18/19 20:00 98.4 F 82 20 109/69 95 07/18/19 18:42 115 H 117/73 07/18/19 16:00 20 07/18/19 15:43 98.5 F 85 20 93/62 95 07/18/19 11:35 98.4 F 79 20 93/59 96 07/18/19 09:33 75 111/69 Intake and Output 07/18/19 07/19/19 07/19/19 22:59 06:59 14:59 Intake Total 860 1700 240 Balance 860 1700 240 Intake: IV 1200 Sodium Chloride 0.9% 1, 1200 000 ml @ 100 mls/hr IV . Q10H [facility] Rx#:[id number] Oral 860 500 240 Other: Voiding Method Toilet Toilet # Voids 3 Weight 95.4 kg Results 07/19/19 06:11 07/19/19 06:11 Cardiac Enzymes 07/19/19 Range/Units 06:11 AST 93 H (17-59) U/L CBC 07/19/19 Range/Units 06:11 WBC 8.3 (3.8-10.6) k/uL RBC 4.54 (4.30-5.90) m/uL Hgb 14.3 (13.0-17.5) gm/dL Hct 44.5 (39.0-53.0) % Plt Count 299 (150-450) k/uL Comprehensive Metabolic Panel 07/19/19 Range/Units 06:11 Sodium 139 (137-145) mmol/L Potassium 4.6 (3.5-5.1) mmol/L Chloride 109 H (98-107) mmol/L Carbon Dioxide 20 L (22-30) mmol/L BUN 21 H (9-20) mg/dL Creatinine 1.08 (0.66-1.25) mg/dL Glucose 122 H (74-99) mg/dL Calcium 9.1 (8.4-10.2) mg/dL AST 93 H (17-59) U/L ALT 142 H (21-72) U/L Alkaline Phosphatase 75 (38-126) U/L Total Protein 6.2 L (6.3-8.2) g/dL Albumin 3.2 L (3.5-5.0) g/dL Current Medications Generic Name Dose Route Start Last Admin Trade Name Marlee PRN Reason Stop Dose Admin Allopurinol 300 mg 07/18/19 07:00 07/19/19 06:49 Zyloprim PO 300 mg DAILY@0700 [facility] Administration Apixaban 5 mg 07/17/19 22:00 07/18/19 20:48 Eliquis PO 5 mg BID [facility] Administration Atorvastatin Calcium 80 mg 07/18/19 09:00 07/18/19 09:38 Lipitor PO 80 mg DAILY [facility] Administration Sodium Chloride 1,000 mls @ 100 mls/hr 07/17/19 19:00 07/18/19 18:46 Saline 0.9% IV 100 mls/hr .Q10H [facility] Administration Diltiazem HCl 125 mg/ Sodium 125 mls @ 5 mls/hr 07/18/19 20:15 07/18/19 20:50 Chloride IV 5 mg/hr .Q24H [facility] 5 mls/hr Administration 5 MG/HR Linagliptin 5 mg 07/18/19 12:30 07/18/19 12:10 Tradjenta PO 5 mg AC-LUNCH [facility] Administration Lisinopril 10 mg 07/19/19 07:00 07/19/19 06:49 Zestril PO 10 mg DAILY@0700 [facility] Administration Metoprolol Tartrate 25 mg 07/17/19 21:00 07/18/19 18:45 Lopressor PO 25 mg BID [facility] Administration Nitroglycerin 0.4 mg 07/17/19 18:46 Nitrostat SUBLINGUAL Q5M PRN Chest Pain Non-Formulary Medication 25 mg 07/18/19 07:30 07/18/19 09:37 Empagliflozin [Jardiance] PO Not Given AC-BRKFST [facility] Pantoprazole Sodium 40 mg 07/18/19 07:00 07/19/19 06:49 Protonix PO 40 mg DAILY@0700 [facility] Administration Pioglitazone HCl 15 mg 07/18/19 17:30 07/18/19 17:35 Actos PO 15 mg AC-SUPPER [facility] Administration Intake and Output 07/18/19 07/19/1919 22:59 06:59 14:59 Intake Total 860 1700 240 Balance 860 1700 240 Intake: IV 1200 Sodium Chloride 0.9% 1, 1200 000 ml @ 100 mls/hr IV . Q10H [facility] Rx#:[id number] Oral 860 500 240 Other: Voiding Method Toilet Toilet # Voids 3 Weight 95.4 kg 07/19/19 06:11 07/19/19 06:11
[2019-07-19] MEDS: NON FORMULARY DRUG (Empagliflozin [Jardiance] 25 MG) PO SCH (08:28)
[2019-07-19] MEDS: METOPROLOL TARTRATE 50 MG TAB PO SCH ×2 (08:32→21:19)
[2019-07-19] MEDS: APIXABAN 5 MG TAB PO SCH ×2 (08:32→21:20)
[2019-07-19] MEDS: ATORVASTATIN 80 MG TAB PO SCH (08:32)
[2019-07-19] MEDS: DIGOXIN 250 MCG TAB PO SCH (09:17)
[2019-07-19 12:03] LABS: Glucose,Whole Blood 107 mg/dL (75-99)
--- NOTE | 2019-07-19 12:41 | PN ---
PROGRESS NOTE Mr. Berkowitz is a 69-year-old male who presented with episode of atrial flutter with rapid ventricular response. He is doing well this morning. His breathing has been stable. He denies any dizziness or palpitation. He was evaluated by Dr. Agrawal for possible ablation. Hemodynamically, he is stable. He continues to be in atrial flutter. He is on Eliquis 5 mg twice a day, Lipitor 80 mg daily, IV Cardizem, digoxin 0.25 mg daily, lisinopril 5 mg daily, metoprolol tartrate 50 mg twice a day in addition to Actos. PHYSICAL EXAMINATION: Blood pressure 122/70 with the heart rate in the 80s to one teens. LUNGS: Clear. HEART: Irregular, irregular. S1, S2. No S3. No rub. ABDOMEN: Soft, nontender. EXTREMITIES: No edema. LAB DATA: Lab data revealed BUN and creatinine 21 and 1.08. Bilirubin 1.5, AST of 93, ALT of 142. IMPRESSION: 1. Atrial flutter with episode of rapid ventricular response. 2. Diabetes. 3. Hypertension. 4. Hyperlipidemia. RECOMMENDATION: I will decrease the dose of his statin at this point. We will continue with his medical regimen. Increase his level of activity. His IV Cardizem will be stopped this afternoon. We will follow his blood pressure. If he is stable, I would expect he should be able to be discharged home tomorrow and follow up with Dr. Cavanaugh and proceed with ablation as an outpatient. MMODL / IJN: [id number] /
[2019-07-19] MEDS: LINAGLIPTIN 5 MG TABLET PO SCH (13:24)
[2019-07-19] MEDS: SODIUM CHLORIDE 0.9% 1,000 ML IV SCH ×2 (13:48→21:22)
[2019-07-19 16:50] LABS: Glucose,Whole Blood 134 mg/dL (75-99)
[2019-07-19] MEDS: PIOGLITAZONE 15 MG TAB PO SCH (17:31)
[2019-07-20 04:55] VITALS: RESP 16
[2019-07-20 06:32] LABS: Glucose,Whole Blood 107 mg/dL (75-99)
[2019-07-20] MEDS: ALLOPURINOL 300 MG TAB PO SCH (06:40)
[2019-07-20 06:54] LABS: Albumin 3.2 g/dL (3.5-5.0); Calcium 9.3 mg/dL (8.4-10.2); Potassium 4.7 mmol/L (3.5-5.1); Total Bilirubin 1.4 mg/dL (0.2-1.3); Total Protein 6.2 g/dL (6.3-8.2)
[2019-07-20] MEDS ORDERED: LISINOPRIL 5 MG TAB PO SCH (07:00)
[2019-07-20] MEDS: NON FORMULARY DRUG (Empagliflozin [Jardiance] 25 MG) PO SCH (07:29)
[2019-07-20] MEDS: SODIUM CHLORIDE 0.9% 1,000 ML IV SCH (07:30)
[2019-07-20] MEDS: PANTOPRAZOLE 40 MG TABLET PO SCH (07:36)
[2019-07-20] MEDS ORDERED: ATORVASTATIN 80 MG TAB PO SCH (09:00)
[2019-07-20] MEDS: APIXABAN 5 MG TAB PO SCH (09:04)
[2019-07-20] MEDS: METOPROLOL TARTRATE 50 MG TAB PO SCH (09:04)
[2019-07-20] MEDS: DIGOXIN 250 MCG TAB PO SCH (09:06)
[2019-07-20] MEDS ORDERED: ATORVASTATIN 20 MG TAB PO SCH (09:15)
[2019-07-20 09:42] VITALS: TEMP 98.3
[2019-07-20 11:50] LABS: Glucose,Whole Blood 109 mg/dL (75-99)
[2019-07-20] MEDS: LINAGLIPTIN 5 MG TABLET PO SCH (11:52)
[2019-07-20 12:36] VITALS: BP 103/65; PULSE 94
--- NOTE | 2019-07-20 13:20 | P.PN ---
Subjective Progress Note Date: 07/20/19 This is a pleasant 61-year-old gentleman who presented with episodes of atrial flutter with rapid ventricular response. He was seen and evaluated by Dr. Brannon for possible ablation which would schedule down the road. He is doing well this morning. His breathing has been stable and he denies any dizziness or palpitations. He continues to be in atrial flutter but is hemodynamically stable. He remains on anticoagulation. He is on Lipitor 20 mg daily, IV Cardizem, digoxin 0.25 mg daily, lisinopril 5 mg by mouth daily and metoprolol titrate 50 mg by mouth twice a day. Heart rates are fairly well controlled in the 80s to 90s. Laboratory values this morning show potassium of 4.7, BUN 19 and creatinine 1.03. Objective - Vital Signs Vital signs: Vital Signs Temp 98.3 F 07/20/19 11:45 Pulse 94 07/20/19 11:45 Resp 16 07/20/19 11:45 BP 103/65 07/20/19 11:45 Pulse Ox 96 07/20/19 11:45 Intake & Output 07/19/19 07/20/19 07/20/19 18:59 06:59 18:59 Intake Total 1517.583 480 Output Total 200 4 Balance 1517.583 -200 476 Weight 94.9 kg Intake: IV 840 Diltiazem 125 mg In 40 Sodium Chloride 0.9% 100 ml @ 5 MG/HR 5 mls/hr IV .Q24H [facility] Rx#:[id number] Sodium Chloride 0.9% 1, 800 000 ml @ 100 mls/hr IV . Q10H [facility] Rx#:[id number] Intake, IV Titration 77.583 0 Amount Diltiazem 125 mg In 77.583 0 Sodium Chloride 0.9% 100 ml @ 5 MG/HR 5 mls/hr IV .Q24H [facility] Rx#:[id number] Oral 600 480 Output: Urine 200 4 Other: Voiding Method Toilet Toilet # Voids 1 - Exam PHYSICAL EXAMINATION: HEENT: Head is atraumatic, normocephalic. Pupils equal, round. Neck is supple. There is no elevated jugular venous pressure. HEART EXAMINATION: Heart sounds irregular irregular, S1 and S2 normal. No murmur or gallop heard. CHEST EXAMINATION: Lungs are clear to auscultation and precussion. No chest wall tenderness is noted on palpation or with deep breathing. ABDOMEN: Soft, nontender. Bowel sounds are heard. No organomegaly noted. EXTREMITIES: 2+ peripheral pulses with no evidence of peripheral edema and no calf tenderness noted. NEUROLOGIC patient is awake, alert and oriented x3. . - Labs CBC & Chem 7: 07/19/19 06:11 07/20/19 05:36 Labs: Abnormal Lab Results - Last 24 Hours (Table) 07/19/19 07/20/19 07/20/19 Range/Units 16:30 05:36 06:30 Glucose 112 H (74-99) mg/dL POC Glucose (mg/dL) 134 H 107 H (75-99) mg/dL Total Bilirubin 1.4 H (0.2-1.3) mg/dL AST 96 H (17-59) U/L ALT 161 H (21-72) U/L Total Protein 6.2 L (6.3-8.2) g/dL Albumin 3.2 L (3.5-5.0) g/dL 07/20/19 Range/Units 11:49 Glucose (74-99) mg/dL POC Glucose (mg/dL) 109 H (75-99) mg/dL Total Bilirubin (0.2-1.3) mg/dL AST (17-59) U/L ALT (21-72) U/L Total Protein (6.3-8.2) g/dL Albumin (3.5-5.0) g/dL Assessment and Plan Assessment: #1 atrial flutter with episodes of rapid ventricular response #2 diabetes #3 hypertension #4 hyperlipidemia Plan: From cardiology perspective, medications were reviewed and will continue the same. Plan for follow-up with Dr. Cavanaugh in the office after discharge and he will be scheduled with Dr. Agrawal to undergo an ablation. 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 Patient was seen and examined.
--- NOTE | 2019-08-06 12:07 | P.PN ---
Subjective Progress Note Date: 07/19/19 Principal diagnosis: Atrial fibrillation with rapid regular rate Patient is a 69-year-old male with a known history of diabetes, recently diagnosed atrial fibrillation, hyperlipidemia was sent to Hospital due to it fibrillation with rapid ventricular rate by his PCPs office. Patient was discharged from the hospital about a week ago. Patient was initially transferred from [facility] due to atrial fibrillation with rapid ventricular rate. Patient did convert to sinus rhythm. Patient was continued on anticoagulation. Patient was not on beta blockers due to (bradycardia while in the hospital. She didn't was recommended to follow with cardiology clinic. Patient went to see his primary care physician and his heart rate was noted to be 140s. Patient was sent to ER evaluation. EKG showed atrial flutter with heart rate of 146 Sodium 138 potassium 4.8 creatinine 1.1 and BUN 30 Bili was 1.4 AST 63 and ALT 87 troponin 2 negative Currently patient is still in atrial flutter. 07/19/2019 Patient continues to be in atrial flutter this morning. No commerce of chest pain. Patient was seen by cardiology and was added with digoxin. Currently being continued on IV Cardizem drip. cath showed mild inferior wall hypokinesis with an occluded distal left circumflex by coronary angiography. Ejection fraction 50-55%. Lisinopril dose was reduced. Otherwise no complaints of shortness of breath. No nausea vomiting or abdominal pain. No diarrhea or dysuria. Current medications reviewed. Objective - Vital Signs Vital signs: Vital Signs Temp 97.4 F L 07/19/19 15:39 Pulse 98 07/19/19 15:39 Resp 16 07/19/19 15:39 BP 100/75 07/19/19 15:39 Pulse Ox 96 07/19/19 15:39 Intake & Output 07/18/19 07/19/19 07/19/19 18:59 06:59 18:59 Intake Total 7933.156 4098 1517.583 Balance 5748.694 1655 1517.583 Weight 95.4 kg Intake: IV 860 1200 840 Diltiazem 125 mg In 60 Sodium Chloride 0.9% 100 ml @ 5 MG/HR 5 mls/hr IV .Q24H [facility] Rx#:[id number] Diltiazem 125 mg In 40 Sodium Chloride 0.9% 100 ml @ 5 MG/HR 5 mls/hr IV .Q24H [facility] Rx#:[id number] Sodium Chloride 0.9% 1, 800 1200 800 000 ml @ 100 mls/hr IV . Q10H [facility] Rx#:[id number] Intake, IV Titration 26.833 77.583 Amount Diltiazem 125 mg In 26.833 Sodium Chloride 0.9% 100 ml @ 5 MG/HR 5 mls/hr IV .Q24H [facility] Rx#:[id number] Diltiazem 125 mg In 77.583 Sodium Chloride 0.9% 100 ml @ 5 MG/HR 5 mls/hr IV .Q24H [facility] Rx#:[id number] Oral 1080 1000 600 Other: Voiding Method Toilet Toilet Toilet # Voids 3 - Exam PHYSICAL EXAMINATION: Patient is lying in the bed comfortably, no acute distress, awake alert and oriented.. HEENT: Normocephalic. Neck is supple. Pupils reactive. Nostrils clear. Oral cavity is moist. Ears reveal no drainage. Neck reveals no JVD, carotid bruits, or thyromegaly. CHEST EXAMINATION: Trachea is central. Symmetrical expansion. Lung wolf clear to auscultation and percussion. CARDIAC: Normal S1, S2 with no gallops. No murmurs , Atrial flutter. ABDOMEN: Soft. Bowel sounds normal. No organomegaly. No abdominal bruits. Extremities: reveal no edema. No clubbing or cyanosis Neurologically awake, alert, oriented x3 with well-coordinated movements. No focal deficits noted Skin: No rash or skin lesions. Psychiatric: Coperative. Nonsuicidal Musculoskeletal: No joint swelling or deformity. Normal range of motion. - Labs CBC & Chem 7: 07/19/19 06:11 07/20/19 05:36 Labs: Abnormal Lab Results - Last 24 Hours (Table) 07/18/19 07/19/19 07/19/19 Range/Units 20:12 05:59 06:11 Chloride 109 H (98-107) mmol/L Carbon Dioxide 20 L (22-30) mmol/L BUN 21 H (9-20) mg/dL Glucose 122 H (74-99) mg/dL POC Glucose (mg/dL) 115 H 110 H (75-99) mg/dL Total Bilirubin 1.5 H (0.2-1.3) mg/dL AST 93 H (17-59) U/L ALT 142 H (21-72) U/L Total Protein 6.2 L (6.3-8.2) g/dL Albumin 3.2 L (3.5-5.0) g/dL 07/19/19 07/19/19 Range/Units 11:37 16:30 Chloride (98-107) mmol/L Carbon Dioxide (22-30) mmol/L BUN (9-20) mg/dL Glucose (74-99) mg/dL POC Glucose (mg/dL) 107 H 134 H (75-99) mg/dL Total Bilirubin (0.2-1.3) mg/dL AST (17-59) U/L ALT (21-72) U/L Total Protein (6.3-8.2) g/dL Albumin (3.5-5.0) g/dL Assessment and Plan Assessment: Atrial flutter with rapid ventricular rate Recently diagnosed A. fib with RVR paroxysmal converted to sinus rhythm that time Hypertension, diabetes type 2, hyperlipidemia Mildly elevated liver enzymes/transaminitis. Occasional cigar smoking Plan: Currently patient is being continued on Cardizem drip. Continue with anticoagulation with Eliquis. Patient is being continued on metoprolol, lisin opril and atorvastatin. Added digoxin. Recent echocardiogram showed ejection fraction 50-55%. Recent cardiac catheterization in early this month showed mild nonobstructive coronary artery disease. Patient is still in atrial fibrillation /flutter. EP cardiology is following. Further recommendations based on the clinical course. Time with Patient: Greater than 30
--- NOTE | 2019-08-06 12:12 | P.DS ---
Providers Date of admission: 07/17/19 18:47 Expected date of discharge: 07/20/19 Attending physician: Cristal Clifford Consults: 07/17/19 18:47 Consult Physician Urgent Consulting Provider: Jose Fernández Consult Reason/Comments: afib Do you want consulting provider notified?: Yes 07/18/19 10:26 Consult Physician Urgent Consulting Provider: Adriel Agrawal Consult Reason/Comments: atrial flutter Do you want consulting provider notified?: Already Contacted Primary care physician: Evin Shell Hospital Course: Discharge diagnosis Atrial flutter with rapid ventricular rate. Continues to be in atrial flutter. Rate is controlled. Recently diagnosed A. fib with RVR paroxysmal converted to sinus rhythm that time Hypertension, diabetes type 2, hyperlipidemia Mildly elevated liver enzymes/transaminitis. Occasional cigar smoking Hospital course Patient is a 69-year-old male with a known history of diabetes, recently diagnosed atrial fibrillation, hyperlipidemia was sent to Hospital due to it fibrillation with rapid ventricular rate by his PCPs office. Patient was discharged from the hospital about a week ago. Patient was initially transferred from [facility] due to atrial fibrillation with rapid ventricular rate. Patient did convert to sinus rhythm. Patient was continued on anticoagulation. Patient was not on beta blockers due to (bradycardia while in the hospital. She didn't was recommended to follow with cardiology clinic. Patient went to see his primary care physician and his heart rate was noted to be 140s. Patient was sent to ER evaluation. EKG showed atrial flutter with heart rate of 146 Sodium 138 potassium 4.8 creatinine 1.1 and BUN 30 Bili was 1.4 AST 63 and ALT 87 troponin 2 negative Currently patient is still in atrial flutter. 07/19/2019 Patient continues to be in atrial flutter this morning. No commerce of chest pain. Patient was seen by cardiology and was added with digoxin. Currently being continued on IV Cardizem drip. cath showed mild inferior wall hypokinesis with an occluded distal left circumflex by coronary angiography. Ejection fraction 50-55%. Lisinopril dose was reduced. Otherwise no complaints of shortness of breath. No nausea vomiting or abdominal pain. No diarrhea or dysuria. 07/20/2019 Patient denied any complaints of chest pain or shortness of breath. No nausea vomiting or abdominal pain. Continues to be in atrial flutter but rate is controlled and symptomatically improved. Patient is stable to be discharged home otherwise. Recommended to follow with primary care patient. Repeat LFTs. Currently was continued on Cardizem drip. Continue with anticoagulation with Eliquis. Patient is being continued on metoprolol, lisinopril and atorvastatin. Added digoxin. Metoprolol dose was increased. Recent echocardiogram showed ejection fraction 50-55%. Recent cardiac catheterization in early this month showed mild nonobstructive coronary artery disease. Patient is still in atrial fibrillation /flutter. EP cardiology is following. Further recommendations based on the clinical course.Vital Signs PHYSICAL EXAMINATION: Patient is lying in the bed comfortably, no acute distress, awake alert and oriented.. HEENT: Normocephalic. Neck is supple. Pupils reactive. Nostrils clear. Oral cavity is moist. Ears reveal no drainage. Neck reveals no JVD, carotid bruits, or thyromegaly. CHEST EXAMINATION: Trachea is central. Symmetrical expansion. Lung wolf clear to auscultation and percussion. CARDIAC: Normal S1, S2 with no gallops. No murmurs, atrial flutter. ABDOMEN: Soft. Bowel sounds normal. No organomegaly. No abdominal bruits. Extremities: reveal no edema. No clubbing or cyanosis Neurologically awake, alert, oriented x3 with well-coordinated movements. No focal deficits noted Skin: No rash or skin lesions. Psychiatric: Coperative. Nonsuicidal Musculoskeletal: No joint swelling or deformity. Normal range of motion. Temp 98.3 F 07/20/19 11:45 Pulse 94 07/20/19 11:45 Resp 16 07/20/19 11:45 BP 103/65 07/20/19 11:45 Pulse Ox 96 07/20/19 11:45 Intake & Output 07/19/19 07/20/19 07/20/19 18:59 06:59 18:59 Intake Total 1517.583 480 Output Total 200 4 Balance 1517.583 -200 476 Weight 94.9 kg Intake: IV 840 Diltiazem 125 mg In 40 Sodium Chloride 0.9% 100 ml @ 5 MG/HR 5 mls/hr IV .Q24H [facility] Rx#:[id number] Sodium Chloride 0.9% 1, 800 000 ml @ 100 mls/hr IV . Q10H [facility] Rx#:[id number] Intake, IV Titration 77.583 0 Amount Diltiazem 125 mg In 77.583 0 Sodium Chloride 0.9% 100 ml @ 5 MG/HR 5 mls/hr IV .Q24H [facility] Rx#:[id number] Oral 600 480 Output: Urine 200 4 Other: Voiding Method Toilet Toilet # Voids 1 Total time taken greater than 35 minutes including 18 minutes for counseling and coordination of care. Patient Condition at Discharge: Good Plan - Discharge Summary Discharge Rx Participant: No New Discharge Prescriptions: New Digoxin [Lanoxin] 250 mcg PO DAILY #90 tab Atorvastatin [Lipitor] 20 mg PO DAILY #90 tab Metoprolol Tartrate [Lopressor] 50 mg PO BID #180 tab Lisinopril [Zestril] 5 mg PO DAILY@0700 #90 tab Continue Pioglitazone [Actos] 15 mg PO AC-SUPPER sitaGLIPtin [Januvia] 100 mg PO AC-LUNCH Omeprazole 40 mg PO DAILY@0700 Empagliflozin [Jardiance] 25 mg PO AC-BRKFST Allopurinol [Zyloprim] 300 mg PO DAILY@0700 Testosterone Cypionate [Depo-Testosterone] 200 mg IM Q30D Aspirin EC [Ecotrin Low Dose] 81 mg PO DAILY Turmeric Root Extract [Turmeric] 500 mg PO DAILY@1000 Garlic 1 tab PO DAILY@1000 Apixaban [Eliquis] 5 mg PO BID #60 tab Discontinued Lisinopril [Zestril] 20 mg PO DAILY@0700 Atorvastatin [Lipitor] 40 mg PO HS Discharge Medication List Allopurinol [Zyloprim] 300 mg PO DAILY@0700 07/09/19 [History] Aspirin EC [Ecotrin Low Dose] 81 mg PO DAILY 07/09/19 [History] Empagliflozin [Jardiance] 25 mg PO AC-BRKFST 07/09/19 [History] Garlic 1 tab PO DAILY@1000 07/09/19 [History] Omeprazole 40 mg PO DAILY@0700 07/09/19 [History] Pioglitazone [Actos] 15 mg PO AC-SUPPER 07/09/19 [History] Testosterone Cypionate [Depo-Testosterone] 200 mg IM Q30D 07/09/19 [History] Turmeric Root Extract [Turmeric] 500 mg PO DAILY@1000 07/09/19 [History] sitaGLIPtin [Januvia] 100 mg PO AC-LUNCH 07/09/19 [History] Apixaban [Eliquis] 5 mg PO BID #60 tab 07/10/19 [Rx] Atorvastatin [Lipitor] 20 mg PO DAILY #90 tab 07/20/19 [Rx] Digoxin [Lanoxin] 250 mcg PO DAILY #90 tab 07/20/19 [Rx] Lisinopril [Zestril] 5 mg PO DAILY@0700 #90 tab 07/20/19 [Rx] Metoprolol Tartrate [Lopressor] 50 mg PO BID #180 tab 07/20/19 [Rx] Follow up Appointment(s)/Referral(s): Evin Shell MD [Primary Care Provider] - 1-2 days Bebo Cavanaugh MD [STAFF PHYSICIAN] - 1 Week Patient Instructions/Handouts: A-fib (Atrial Fibrillation) (DC) Discharge Disposition: HOME SELF-CARE
== END 2019-07-20 16:07 | disposition home or self-care (01) | DRG 310 ==
LOC: EC 18:36 → 3SCARD 18:47
PROVIDERS: ADMIT Hospitalist; ATTEND Hospitalist
DX: I48.92 Unspecified atrial flutter (principal); I48.0 Paroxysmal atrial fibrillation; E78.5 Hyperlipidemia, unspecified; F17.290 Nicotine dependence, other tobacco product, uncomplicated; E11.9 Type 2 diabetes mellitus without complications; I10 Essential (primary) hypertension; I25.10 Atherosclerotic heart disease of native coronary artery without angina pectoris; I25.82 Chronic total occlusion of coronary artery; I48.1 Persistent atrial fibrillation; Z79.01 Long term (current) use of anticoagulants; Z79.82 Long term (current) use of aspirin; Z79.84 Long term (current) use of oral hypoglycemic drugs; Z79.899 Other long term (current) drug therapy; Z80.0 Family history of malignant neoplasm of digestive organs; Z87.442 Personal history of urinary calculi; Z85.828 Personal history of other malignant neoplasm of skin; R03.1 Nonspecific low blood-pressure reading; R74.0 Nonspecific elevation of levels of transaminase and lactic acid dehydrogenase [LDH]
CPT/HCPCS: 80053; 80061; 84484; 85025; 96365; 96376; 99285

== ENCOUNTER 2019-08-26 05:51 | Day surgery (SDC) | payer BC, MEDICARE ==
[2019-08-26 06:28] LABS: Glucose,Whole Blood 122 mg/dL (75-99)
[2019-08-26] MEDS ORDERED: PROPOFOL 10 MG/ML 20 ML VIAL IV ONE (07:22)
[2019-08-26] MEDS ORDERED: fentaNYL (PF) 50 MCG/ML 2 ML AMP ONE (07:22)
[2019-08-26] MEDS ORDERED: LIDOCAINE 1% INJ 10MG/ML (20 ML MDV) ONE ×2 (07:22→07:25)
[2019-08-26] MEDS ORDERED: GLYCOPYRROLATE 0.2 MG/ML 2 ML VIAL ONE (07:22)
[2019-08-26] MEDS ORDERED: ROCURONIUM BROMIDE 10 MG/ML 10 ML VIAL IV ONE (07:22)
[2019-08-26] MEDS ORDERED: NEOSTIGMINE 1 MG/ML 10 ML VIAL ONE (07:22)
[2019-08-26] MEDS ORDERED: ONDANSETRON 4 MG/2 ML VIAL ONE (07:22)
[2019-08-26] MEDS ORDERED: SUCCINYLCHOLINE CHLORIDE 100 MG/5 ML SYR IV ONE (07:22)
[2019-08-26] MEDS ORDERED: PHENYLEPHRINE-0.9% NACL SYG 1 MG/10 ML SYRINGE ONE (07:22)
[2019-08-26] MEDS ORDERED: ePHEDrine SULFATE/0.9% NACL/PF 50 MG/5 ML SYRINGE IV ONE (07:22)
[2019-08-26] MEDS ORDERED: MIDAZOLAM 2 MG/2 ML VIAL ONE (07:22)
[2019-08-26] MEDS ORDERED: SODIUM CHLORIDE 0.9% 1,000 ML IV ONE (07:31)
[2019-08-26] MEDS ORDERED: LIDOCAINE 1% INJ 10MG/ML (20 ML MDV) SQ ONE (08:04)
[2019-08-26] MEDS ORDERED: HEPARIN SODIUM (1,000 UNIT/ML) 1,000 UNIT in SODIUM CHLORIDE 0.9% 1,000 ML IRRIGATION ONE (08:45)
[2019-08-26] MEDS ORDERED: ACETAMINOPHEN TAB 325 MG TAB PO PRN (09:34)
[2019-08-26] MEDS ORDERED: HYDROcodone/APAP 5-325MG 1 EACH TAB PO PRN (09:34)
[2019-08-26] MEDS ORDERED: ACETAMINOPHEN IV (For NPO) 1,000 MG in EMPTY BAG 1 BAG IVPB ONE (09:34)
--- NOTE | 2019-08-26 09:38 | P.HPCAR ---
History of Present Illness This is Dr. Agrawal dictating an H&P on this patient The patient was interviewed and examined by me IMPRESSION / ASSESSMENT: Typical atrial flutter with RVR Atrial fibrillation, paroxysmal Normal coronary arteries Type 2 diabetes Dyslipidemia Nicotine use Normal LV function No contraindications to proceeding with EP study ablation under general anesthesia, denies any chest discomfort syncope shortness of breath orthopnea PND within the last several weeks PLAN: Proceed with EP study and atrial flutter ablation HPI Patient presented to the hospital with atrial fibrillation with RVR. Subsequently he converted to sinus rhythm and then had an episode of atrial flutter with poorly controlled ventricular rates He was anticoagulated He had mildly abnormal cardiac enzymes at that time and coronary angiography was performed, no significant coronary artery disease noted He has type 2 diabetes dyslipidemia and his current smoker Today upon my interview, he denied any fever chills cough phlegm or expectoration no abdominal symptoms or urinary symptoms no skin infections No chest discomfort no shortness of breath orthopnea PND ROS: No fever chills or rigors, no cough, phlegm or expectoration, no nausea, vomiting or diarrhea, no hematuria, dysuria, no musculoskeletal complaints, no strokes or seizures, no skin lesions. EXAMINATION: Afebrile 97.6F, pulse rate in the 80s, blood pressure 150/93 mmHg 96% on room air Breath sounds are clear no rhonchi no crackles Heart sounds S1 and S2 are irregular no murmurs Abdomen soft nontender Extremities warm no edema Distal pulses well palpable Groin pulses were palpable REVIEW OF LABS, ECG & MEDICAL DATA Glucose 122 Home medications reviewed and include atorvastatin ELIQUIS diabetes medications metoprolol lisinopril and digoxin Physical Exam Vitals: Vital Signs Temp Pulse Resp BP Pulse Ox 08/26/19 06:18 97.6 F 88 18 150/93 96 Intake and Output 08/25/19 08/26/19 08/26/19 22:59 06:59 14:59 Intake Total 213 Balance 213 Intake: IV 213 Past Medical History Past Medical History: Cancer, Diabetes Mellitus, GERD/Reflux, Hyperlipidemia Additional Past Medical History / Comment(s): hx melanoma, hx kidney stones, gout, History of Any Multi-Drug Resistant Organisms: None Reported Past Surgical History: Heart Catheterization, Orthopedic Surgery, Tonsillectomy Additional Past Surgical History / Comment(s): heart cath no stent 07/09/2019, melanoma removed from back, arthroscopy rt knee, RK eye surgery Past Anesthesia/Blood Transfusion Reactions: No Reported Reaction Smoking Status: Light tobacco smoker - Past Family History Mother Family Medical History: Cancer Additional Family Medical History / Comment(s): Pancreatic CA Father Additional Family Medical History / Comment(s): suicide d/t CA Physical Examination Vital Signs Temp Pulse Resp BP Pulse Ox 08/26/19 06:18 97.6 F 88 18 150/93 96 Intake and Output 08/25/19 08/26/19 08/26/19 22:59 06:59 14:59 Intake Total 213 Balance 213 Intake: IV 213 Results Current Medications Generic Name Dose Route Start Last Admin Trade Name Freq PRN Reason Stop Dose Admin Acetaminophen 650 mg 08/26/19 09:34 Tylenol Tab PO Q6HR PRN Mild Pain Hydrocodone Bitart/Acetaminophen 1 each 08/26/19 09:34 [place] 5-325 PO Q4HR PRN Moderate Pain Allopurinol 300 mg 08/27/19 09:00 Zyloprim PO DAILY [facility] Apixaban 5 mg 08/26/19 21:00 Eliquis PO 0900,2100 [facility] Atorvastatin Calcium 40 mg 08/26/19 21:00 Lipitor PO HS [facility] Lactated Ringer's 1,000 mls @ 20 mls/hr 08/26/19 05:48 Lactated Ringers IV .Q24H [facility] Sodium Chloride 1,000 mls @ 20 mls/hr 08/26/19 05:48 Saline 0.9% IV .Q24H [facility] Acetaminophen 1,000 mg/ IV 100 mls @ 400 mls/hr 08/26/19 09:34 Solution IVPB 08/26/19 09:48 ONCE ONE Lisinopril 5 mg 08/27/19 09:00 Zestril PO DAILY [facility] Metoprolol Tartrate 75 mg 08/26/19 20:00 Lopressor PO 0800,2000 [facility] Non-Formulary Medication 25 mg 08/27/19 07:30 Empagliflozin [Jardiance] PO AC-BRKFST [facility] Non-Formulary Medication 40 mg 08/27/19 09:00 Omeprazole [Omeprazole] PO DAILY [facility] Non-Formulary Medication 100 mg 08/26/19 12:30 Sitagliptin PO AC-LUNCH [facility] Pioglitazone HCl 15 mg 08/26/19 17:30 Actos PO AC-SUPPER [facility] Sodium Chloride 12 ml 08/26/19 21:00 Saline Flush IV Q12HR [facility] Intake and Output 08/25/19 08/26/19 08/26/19 22:59 06:59 14:59 Intake Total 213 Balance 213 Intake: IV 213
--- NOTE | 2019-08-26 09:40 | P.PRLE ---
RE: Octavio Berkowitz Dear Jina Cunningham underwent successful ablation for atrial flutter. He tolerated the procedure well without any acute complications However he also has atrial fibrillation. If he continues to have symptomatic atrial fibrillation I would recommend rhythm control. He should be in anticoagulation lifelong since his SIERRA VASC score is at least 2, type 2 diabetes and age over 65 years. He will continue to follow with you and Dr. Calvo as before Thank you for entrusting me with the care of the patient Warm regards Sincerely Adriel Agrawal
[2019-08-26] MEDS: SODIUM CHLORIDE 0.9% 1,000 ML IV SCH (09:53)
[2019-08-26] MEDS: LACTATED RINGERS 1,000 ML IV SCH (09:53)
[2019-08-26 10:25] LABS: Glucose,Whole Blood 123 mg/dL (75-99)
[2019-08-26 11:13] VITALS: BMI 23.1
--- NOTE | 2019-08-26 11:19 | CE ---
CARDIAC ELECTROPHYSIOLOGY REPORT A 69-year-old male patient with a history of: 1. Typical atrial flutter with RVR with difficult rate control. 2. Paroxysmal atrial fibrillation with RVR. 3. Diabetes type 2. 4. Current smoker. On rate control medications and anticoagulation, brought in for an atrial flutter ablation. Patient is brought to the EP lab in a fasting state. Written informed consent was obtained prior to the procedure. His rhythm was irregular and he was in atrial fibrillation at the start of the study. Venous sheaths were placed in the right and left femoral veins and via these diagnostic mapping and ablation catheter (High right atrium, His bundle area, RV, coronary sinus, intracardiac echo catheter, mapping ablation catheter.) Once the catheters were placed, electrical cardioversion was performed. Following that, intracardiac echocardiography was performed. Three-D mapping was performed. The right atrial isthmus was mapped. Tricuspid anulus, coronary sinus, His bundle, eustachian ridge were mapped. The isthmus was mapped. The right atrial appendage and left atrial appendages were evaluated. No thrombus or clot was noted. No pericardial effusion was noted. In sinus rhythm. RF ablation was performed in the right atrial isthmus, complete RF line of block was made, hearing short duration high power protocol. A complete line of block was made, pacing maneuvers were performed to identify any gaps in the slowly and venous slow leaks. Once this was done, complete bidirectional block was achieved with isthmus conduction times are greater than 180 milliseconds with widely split potentials of greater than 138 milliseconds all along the line. Following that, sinus node recovery times were performed at 600, 500 and 400 milliseconds. Sinus node recovery times at 13:40, 1,417 and 1400. Corresponding corrected sinus node recovery times were within normal limits. His sinus cycle length was 108 5 milliseconds, WI interval was 131 milliseconds, QRS 93 milliseconds QT 331 milliseconds. AH interval 45 milliseconds, HV interval 51 milliseconds. AV Wenckebach block 330 milliseconds VA Wenckebach block 340 milliseconds atrial extra stimulation was performed and atrial ERP was 6 0 back/three 10 milliseconds. Intracardiac echocardiography was also performed to evaluate the left atrium. The interatrial septum was quite thick and there was a the patient had a very short foci ovalis along the posterior aspect of the foot along his posterior aspect. The left pulmonary veins were visualized in the left atrium the fossa ovalis was fossa ovalis was quite diminutive. The patient tolerated the procedure well without any acute complications was procedure performed under general anesthesia. Extubated and the patient were extubated successfully at the end of the procedure. Hemostasis was assured. RESULT: 1. Diagnostic EP study revealing persistent atrial fibrillation once again in requiring electrical cardioversion. 2. Atrial flutter. 3. Successful atrial flutter ablation performed. MMODDuane / IJN: [id number] /
[2019-08-26 11:37] LABS: Glucose,Whole Blood 114 mg/dL (75-99)
[2019-08-26] MEDS ORDERED: LINAGLIPTIN 5 MG TABLET PO SCH (12:30)
[2019-08-26 16:33] LABS: Glucose,Whole Blood 142 mg/dL (75-99)
[2019-08-26] MEDS ORDERED: PIOGLITAZONE 15 MG TAB PO SCH (17:30)
[2019-08-26 20:07] LABS: Glucose,Whole Blood 191 mg/dL (75-99)
[2019-08-26] MEDS: APIXABAN 5 MG TAB PO SCH (20:14)
[2019-08-26] MEDS: METOPROLOL TARTRATE 25 MG TAB PO SCH (20:14)
[2019-08-26] MEDS ORDERED: ATORVASTATIN 40 MG TAB PO SCH (21:00)
[2019-08-27] MEDS ORDERED: diphenhydrAMINE 50 MG/ML 1 ML VIAL IVP STA (03:58)
[2019-08-27] MEDS ORDERED: diphenhydrAMINE 50 MG/ML 1 ML VIAL ONE (04:05)
[2019-08-27] MEDS: LACTATED RINGERS 1,000 ML IV SCH (06:18)
[2019-08-27] MEDS: SODIUM CHLORIDE 0.9% 1,000 ML IV SCH (06:18)
[2019-08-27 06:36] LABS: Glucose,Whole Blood 115 mg/dL (75-99)
[2019-08-27] MEDS ORDERED: Empagliflozin [Jardiance] PO SCH (07:30)
[2019-08-27] MEDS ORDERED: PANTOPRAZOLE 40 MG TABLET PO SCH (07:30)
[2019-08-27] MEDS: METOPROLOL TARTRATE 25 MG TAB PO SCH (07:54)
[2019-08-27] MEDS: APIXABAN 5 MG TAB PO SCH (07:55)
[2019-08-27] MEDS ORDERED: LISINOPRIL 5 MG TAB PO SCH (09:00)
[2019-08-27] MEDS ORDERED: ALLOPURINOL 300 MG TAB PO SCH (09:00)
[2019-08-27 11:33] VITALS: BP 117/76; PULSE 51; RESP 18; TEMP 98
[2019-08-27 11:48] LABS: Glucose,Whole Blood 122 mg/dL (75-99)
--- NOTE | 2019-08-27 11:51 | P.DS ---
Providers Attending physician: Adriel Agrawal Primary care physician: [facility] Course: Patient is a 69-year-old male with a past medical history of paroxysmal atrial fibrillation, typical atrial flutter with RVR, type 2 diabetes, dyslipidemia, and smoking who presented for management of his atrial flutter. Upon presentation to the hospital he was in atrial fibrillation. He was anticoagulated. He underwent an electrical cardioversion to sinus rhythm and then subsequently underwent a successful atrial flutter ablation with RF. Patient did well overnight, no acute events. Patient seen and examined resting comfortably in bed. Denies any pain. No chest pain, shortness of breath, orthopnea or PND. He has been able to get up and walk to the bathroom without any difficulties. No dizziness , lightheadedness or palpitations. No bleeding problems. He was able to eat his breakfast. Most recent labs in June reviewed, WBC 8.3, hemoglobin 18.3, platelets 299, potassium 4.7, BUN 19, creatinine 1.03 TSH within normal limits at 1.4 EKG today shows sinus mechanism, rate 52, asymmetric T-wave inversions in lateral leads Temperature 98.0F, pulse 51, respirations 18, blood pressure 117/76, oxygen saturation 98% on room air Patient seen and examined resting comfortably in bed, in no acute distress Lungs are clear to auscultation bilaterally, no rhonchi wheezing or crackles Heart is regular, normal S1-S2, no murmurs or rubs No elevated JVD No lower extremity edema Bilateral groins clean and dry, minimal tenderness to palpation, no bruising or hematomas Impression Typical atrial flutter with RVR, status post RF ablation, currently in sinus rhythm Paroxysmal atrial fibrillation Type 2 diabetes Dyslipidemia Plan Stop digoxin and increase metoprolol to 75 mg twice a day Stop aspirin, previous cath showed normal coronary arteries Continue anticoagulation with eliquis Continue all other cardiac medications Follow-up with Dr. Cavanaugh in one to two weeks Plan - Discharge Summary Discharge Rx Participant: No New Discharge Prescriptions: New Metoprolol Tartrate [Lopressor] 75 mg PO BID #270 tab Discontinued Digoxin [Digitek] 250 mcg PO 1000 Metoprolol Tartrate [Lopressor] 50 mg PO 0800,1999 No Action Pioglitazone [Actos] 15 mg PO AC-SUPPER sitaGLIPtin [Januvia] 100 mg PO AC-LUNCH Omeprazole 40 mg PO DAILY Empagliflozin [Jardiance] 25 mg PO AC-BRKFST Allopurinol [Zyloprim] 300 mg PO DAILY Testosterone Cypionate [Depo-Testosterone] 200 mg IM Q30D Apixaban [Eliquis] 5 mg PO 0900,2100 Atorvastatin [Lipitor] 40 mg PO HS Lisinopril [Zestril] 5 mg PO DAILY Discharge Medication List Allopurinol [Zyloprim] 300 mg PO DAILY 07/09/19 [History] Empagliflozin [Jardiance] 25 mg PO AC-BRKFST 07/09/19 [History] Omeprazole 40 mg PO DAILY 07/09/19 [History] Pioglitazone [Actos] 15 mg PO AC-SUPPER 07/09/19 [History] Testosterone Cypionate [Depo-Testosterone] 200 mg IM Q30D 07/09/19 [History] sitaGLIPtin [Januvia] 100 mg PO AC-LUNCH 07/09/19 [History] Apixaban [Eliquis] 5 mg PO 0900,2100 08/21/19 [History] Atorvastatin [Lipitor] 40 mg PO HS 08/21/19 [History] Lisinopril [Zestril] 5 mg PO DAILY 08/21/19 [History] Metoprolol Tartrate [Lopressor] 75 mg PO BID #270 tab 08/26/19 [Rx]
== END 2019-08-27 13:10 | disposition home or self-care (01) ==
LOC: CATHEP 05:51 → 1SOBS 09:25 → CATHEP 08-27 13:10
PROVIDERS: ATTEND Internal Medicine Clinical Cardiac Electrophysiology
DX: I48.3 Typical atrial flutter (principal); I48.1 Persistent atrial fibrillation; E11.9 Type 2 diabetes mellitus without complications; E78.5 Hyperlipidemia, unspecified; K21.9 Gastro-esophageal reflux disease without esophagitis; Z85.820 Personal history of malignant melanoma of skin; Z87.442 Personal history of urinary calculi; M10.9 Gout, unspecified; F17.200 Nicotine dependence, unspecified, uncomplicated; Z80.0 Family history of malignant neoplasm of digestive organs; Z80.9 Family history of malignant neoplasm, unspecified; Z79.01 Long term (current) use of anticoagulants; Z79.84 Long term (current) use of oral hypoglycemic drugs; Z79.899 Other long term (current) drug therapy; Z79.890 Hormone replacement therapy
CPT/HCPCS: 92960; 93662; 93613; 93653; C1894; C1769 ×2; C1730; C1759; C1893; C1732; J2250; J1200; J2710; J2405; J2001; J3010; J1644; J2370; J0330; J2704

== ENCOUNTER → 2021-07-02 | Outpatient (CLI) | payer BC, MEDICARE ==
[2021-07-02 10:39] LABS: HCT 52.9 % (39.0-53.0); HGB 17.6 gm/dL (13.0-17.5); MCH 33.9 pg (25.0-35.0); MCHC 33.3 g/dL (31.0-37.0); MCV 101.9 fL (80.0-100.0); Macrocytosis Slight; Mean Platelet Volume 7.9; Platelet Count 164 k/uL (150-450); RDW 13.4 % (11.5-15.5); WBC 6.2 k/uL (3.8-10.6)
[2021-07-02 10:51] LABS: Potassium 4.9 mmol/L (3.5-5.1)
== END | disposition home or self-care (01) ==
LOC: LABPAT 09:37
PROVIDERS: ATTEND Internal Medicine Clinical Cardiac Electrophysiology
DX: Z01.812 Encounter for preprocedural laboratory examination (principal); I48.11 Longstanding persistent atrial fibrillation
CPT/HCPCS: 80051; 82565; 84520; 85027

== ENCOUNTER → 2021-07-05 | Day surgery (SDC) | payer BC, MEDICARE ==
[2021-07-01 12:11] VITALS: BMI 23.8
[~2021-07-05] MED LIST: SODIUM CHLORIDE 0.9% 1,000 ML IV SCH
== END ==
LOC: CATHEP 09:07
PROVIDERS: ATTEND Internal Medicine Clinical Cardiac Electrophysiology
DX: Z53.9 Procedure and treatment not carried out, unspecified reason (principal)

== ENCOUNTER 2021-08-31 10:18 | Day surgery (SDC) | payer BC, MEDICARE ==
[2021-08-26 15:53] VITALS: BMI 33.0
[~2021-08-31 10:18] MED LIST changes: +DEXAMETHASONE SOD PHOSPHATE 4 MG/ML 1 ML VIAL IV ONE; +LACTATED RINGERS 1,000 ML IV SCH; +ONDANSETRON 4 MG/2 ML VIAL IVP ONE
[2021-08-31 10:50] LABS: Glucose,Whole Blood 117 mg/dL (75-99)
[2021-08-31] MEDS ORDERED: HYDROmorphone (PF) 1 MG/ML ONE (13:10)
[2021-08-31] MEDS ORDERED: ROCURONIUM 10 MG/ML (5 ML VIAL) IV ONE (13:10)
[2021-08-31] MEDS ORDERED: fentaNYL (PF) 50 MCG/ML 2 ML AMP ONE (13:10)
[2021-08-31] MEDS ORDERED: MIDAZOLAM 2 MG/2 ML VIAL ONE (13:10)
[2021-08-31] MEDS ORDERED: HEPARIN SODIUM,PORCINE 10,000 UNIT/ML 1 ML VIAL ONE (13:10)
[2021-08-31] MEDS ORDERED: PROPOFOL 10 MG/ML 20 ML VIAL IV ONE (13:10)
[2021-08-31] MEDS ORDERED: LIDOCAINE 1% INJ 10MG/ML (20 ML MDV) ONE (13:10)
[2021-08-31] MEDS ORDERED: SUCCINYLCHOLINE CHLORIDE 100 MG/5 ML SYR IV ONE (13:10)
[2021-08-31] MEDS ORDERED: PHENYLEPHRINE-0.9% NACL SYG 1,000 MCG/10 ML SYRINGE ONE (13:10)
[2021-08-31] MEDS ORDERED: IV FLUID CONTINUATION 900 ML IV ONE (13:10)
[2021-08-31] MEDS ORDERED: PROTAMINE SULFATE 10 MG/ML 5 ML VIAL IV ONE ×2 (13:10→16:38)
[2021-08-31] MEDS ORDERED: HEPARIN SOD,PORK IN 0.45% NACL 25,000 UNIT in 0.45% NACL 1 250ML.BAG IV ONE (14:04)
[2021-08-31] MEDS ORDERED: LIDOCAINE 1% INJ 10MG/ML (20 ML MDV) SQ ONE (14:06)
[2021-08-31] MEDS ORDERED: SODIUM CHLORIDE 0.9% 1,000 ML IV ONE (15:59)
[2021-08-31] MEDS ORDERED: HEPARIN SODIUM (1,000 UNIT/ML) 1,000 UNIT in SODIUM CHLORIDE 0.9% 1,000 ML IRRIGATION ONE (16:00)
[2021-08-31] MEDS ORDERED: IOPAMIDOL-370 100ML BTL INJ ONE (16:02)
--- NOTE | 2021-08-31 16:54 | P.HPCAR ---
History of Present Illness This is Dr. Agrawal dictating an H/P on this patient The patient was interviewed and examined IMPRESSION / ASSESSMENT: Persistent atrial fibrillation Failed Multaq Left ventricular ejection fraction 50% with small inferior wall hypokinesis Underlying coronary artery disease normal TSH Moderately enlarged left atrium PLAN: A. fib ablation Continue anticoagulation and continue Multaq thereafter HPI Patient remains in atrial fibrillation despite Multaq Today denies any chest discomfort dizziness lightheadedness he does not feel any palpitations line no heart failure symptoms No fever chills cough expectoration ROS: No fever chills or rigors, no cough, phlegm or expectoration, no nausea, vomiting or diarrhea, no hematuria, dysuria, no musculoskeletal complaints, no strokes or seizures, no skin lesions. EXAMINATION: Afebrile 97.9F, blood pressure 146/93 mmHg pulse ox 98% on room air Breath sounds are reduced bilaterally no rhonchi no crackles air entry is equal Heart sounds S1 and S2 are normal no murmurs but rhythm is irregular No JVD No lower extremity edema Soft abdomen nontender REVIEW OF LABS, ECG & MEDICAL DATA Negative for coronavirus PCF Glucose 117 Physical Exam Vitals: Vital Signs Temp Resp BP Pulse Ox 08/31/21 10:35 97.9 F 16 146/93 98 Intake and Output 08/31/21 08/31/21 08/31/21 06:59 14:59 22:59 Intake Total 900 257 Balance 900 257 Intake: IV 900 257 Other: Weight 96.3 kg Past Medical History Past Medical History: Atrial Fibrillation, Cancer, CVA/TIA, Diabetes Mellitus, Eye Disorder, GERD/Reflux, Hyperlipidemia, Hypertension, Memory Impairment Additional Past Medical History / Comment(s): hx melanoma skin cancer, hx kidney stones, gout, 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 Start of cataracts History of Any Multi-Drug Resistant Organisms: None Reported Past Surgical History: Cardiac Ablation, Heart Catheterization, Orthopedic Surgery, Tonsillectomy Additional Past Surgical History / Comment(s): heart cath no stent 07/09/2019, melanoma removed from back, arthroscopy rt knee, RK eye surgery, Past Anesthesia/Blood Transfusion Reactions: No Reported Reaction Smoking Status: Former smoker - Past Family History Mother Family Medical History: Cancer Additional Family Medical History / Comment(s): Pancreatic CA Father Additional Family Medical History / Comment(s): suicide d/t CA Physical Examination Vital Signs Temp Resp BP Pulse Ox 08/31/21 10:35 97.9 F 16 146/93 98 Intake and Output 08/31/21 08/31/21 08/31/21 06:59 14:59 22:59 Intake Total 900 257 Balance 900 257 Intake: IV 900 257 Other: Weight 96.3 kg Results Current Medications Generic Name Dose Route Start Last Admin Trade Name Freq PRN Reason Stop Dose Admin Lactated Ringer's 1,000 mls @ 20 mls/hr 08/30/21 18:30 Lactated Ringers IV 09/29/21 18:31 .Q24H WILMER Sodium Chloride 1,000 mls @ 20 mls/hr 08/31/21 05:51 Saline 0.9% IV 09/30/21 05:52 .Q24H WILMER Intake and Output 08/31/21 08/31/21 08/31/21 06:59 14:59 22:59 Intake Total 900 257 Balance 900 257 Intake: IV 900 257 Other: Weight 96.3 kg Patient Weight 09/01/21 06:59 Weight 96.3 kg
--- NOTE | 2021-08-31 17:00 | P.PRLE ---
RE: Octavio Berkowitz Dear Dr. Shell Mr. Berkowitz underwent A. fib ablation with pulmonary vein isolation and linear ablation of the septum While his surface ECG shows atrial fibrillation following the ablation, intracardiac electrograms show intermittent organization consistent with atrial reentry It is quite likely that he will need a second ablation in the future involving the left atrial roof and the mitral isthmus in the future However at this time he is in sinus rhythm and I would like to continue Multaq and hopefully we can maintain sinus rhythm for an extended period of time, all owing his left atrium to normalize in size He will continue his anticoagulation indefinitely Thank you for entrusting me with the care of the patient Warm regards Sincerely Adriel Agrawal
--- NOTE | 2021-08-31 17:07 | P.EPPROC ---
- EP Procedure Note Electrophysiology Procedure Note: Final impressions after the A. fib ablation This patient has significantly enlarged left atrium both on account of his body size as well as the fact that these are persistent atrial fibrillation for a long time LV function overall normal with very mild inferior hypokinesis in of a small seg ment related to an occluded small circumflex branch He has failed Multaq His pulmonary veins are completely isolated with cryoablation Following that linear ablation septum was performed. Thereafter there was intermittent organization of atrial fibrillation with eccentric activation in the coronary sinus cycling between 200-240 ms If he needs a repeat A. fib ablation in the future, linear ablation of the left atrial roof and linear ablation of the mitral isthmus will be needed The mitral isthmus was approximately 3.4 cm The left atrial roof was longer than this Since this is a very large left atrium he will need a deflectable sheath for stability of the ablation catheter At this time following successful pulmonary vein isolation and septal ablation I will continue to treat her with Multaq and anticoagulation
--- NOTE | 2021-08-31 17:11 | P.EPPROC ---
- EP Procedure Note Electrophysiology Procedure Note: PROCEDURE A. fib ablation, PVI and linear ablation of the septum DIAGNOSIS Atrial fibrillation, symptomatic, refractory to therapy RESULT No left atrial appendage mass seen on intracardiac echo Successful A. fib ablation/pulmonary vein isolation of all veins using cryo- ablation Complete entrance block in all 4 veins confirmed No evidence for phrenic nerve injury Linear ablation in the left atrial septum Intermittent organization of atrial fibrillation into a rapid atrial tachycardia with eccentric activation in the coronary sinus Esophageal deflection YES Electrical cardioversion with a synchronized shock across the chest YES PROCEDURE DETAILS Patient was brought to the EP lab in a fasting state. Written informed consent was obtained prior to the procedure. Procedure performed under general anesthesia After initial muscle relaxant use, muscle relaxants were not given thereafter in order to assess phrenic nerve during procedure. Patient prepped and draped as per protocol Full cryo-set up with standard preparation of the cryoablation tools done. Femoral Venous access obtained on the right and left groins Venous and arterial Sheaths placed. Diagnostic catheters for the high right atrium, phrenic nerve stimulation and pacing, His bundle, RV and coronary sinus placed Intracardiac echo catheter placed. Long sheath placed in the right atrium Left and right transseptal catheterization performed under intracardiac echo guidance. Intravenous heparin with aCT above 300 Later, catheter positioning and balloon positioning in the left atrium, under intracardiac echo guidance Diagnostic EP study with Coronary sinus pacing and recording Baseline measurements Sinus cycle length 1012 ms, CT 140 ms QRS 93 ms and QT interval 468 ms H for repeat milliseconds and HV interval 33 ms Transseptal catheterization performed RA pressure 13/1/8 LA pressure 19/3/11 Transseptal catheterization performed with standard sheath. The cryoablation sheath was then placed with an over the wire exchange without any acute complications. All 4 pulmonary veins were isolated in the following sequence: Left superior followed by left inferior followed by right superior followed by right inferior The cryo-ablation balloon was placed at the os of each vein 1.5 mL of IV dye was injected to confirm an occluded vein Goal during cryoablation was to achieve complete occlusion of the pulmonary vein, achieve -30 degrees C at 30 seconds and achieve -40 degrees C at 60 seconds and a time to effect of less than 60-90 seconds, . If not the balloon was repositioned to obtain this result After completion of Cryoblation with durations from 180-240 seconds, entrance block was confirmed with the Attain circular catheter in a roving fashion around the antrum of the pulmonary veins Phrenic nerve pacing was performed from the SVC, right innominate vein area and diaphragm voltage was monitored. Diaphragmatic contractions were also monitored manually for strength of contraction. Parameter goals for each cryo freeze Complete occlusion of the appropriate vein -30 degrees C by 30 seconds -40 degrees C by 60 seconds Minimum between minus 40-55 degrees C Thaw time greater than 10 seconds Balloon visualized by intracardiac echo The esophagus was intubated. Esophageal Temperature monitoring with a CIRCA catheter formed. Esophageal deflection for hypothermia of the esophagus below 30 degrees C Left superior pulmonary vein Complete isolation, entrance block Left inferior pulmonary vein Complete isolation, entrance block Right superior pulmonary vein, during phrenic nerve pacing Complete isolation, entrance block Right inferior pulmonary vein, during phrenic nerve pacing Complete isolation, entrance block At the end of the procedure the Achieve catheter was once again used to check for entrance block Phrenic nerve stimulation was performed to confirm diaphragmatic stimulation the end of the procedure Cine fluoroscopy was performed at the very end of the procedure to confirm movement of both diaphragms with inspiration and expiration The cryo sheath was exchanged for an RF sheath RF mapping and ablation catheter was placed Warty mapping was performed The pulmonary veins are completely isolated Fractionated electrograms are noted in the septum Septal ablation was performed and the RF line was connected to the superior and inferior right pulmonary veins Intermittent organization of atrial fibrillation was noted to a very rapid atrial tachycardia with eccentric activation The patient had a long roof and 3.4 cm mitral isthmus Visit dilated left atrium and will require deflectable sheath for stability of in the future At the end of the procedure the patient was extubated Heparin was reversed Venous sheaths were removed and hemostasis assured PROCEDURES PERFORMED Diagnostic EP study CS pacing and recording Left and right transseptal catheterization 3D mapping) Intracardiac echocardiography Pulmonary vein isolation with transseptal and comprehensive EPS, [id number] Linear ablation, left atrium, [id number] Electrical cardioversion with a synchronized shock across the chest [id number]
[2021-08-31] MEDS ORDERED: HYDROmorphone 0.5 MG/0.5 ML SYRINGE IVP ONE (17:28)
[2021-08-31] MEDS ORDERED: PIOGLITAZONE 15 MG TAB PO SCH (17:30)
[2021-08-31] MEDS ORDERED: ACETAMINOPHEN TAB 325 MG TAB PO PRN (17:48)
[2021-08-31] MEDS ORDERED: ACETAMINOPHEN IV (For NPO) 1,000 MG in EMPTY BAG 1 BAG IVPB ONE (17:48)
[2021-08-31] MEDS: DRONEDARONE 400 MG TAB PO SCH (19:55)
[2021-08-31 20:15] LABS: Glucose,Whole Blood 123 mg/dL (75-99)
[2021-08-31] MEDS ORDERED: ATORVASTATIN 40 MG TAB PO SCH (21:00)
[2021-08-31] MEDS: APIXABAN 5 MG TAB PO SCH (21:05)
[2021-08-31] MEDS: METOPROLOL SUCCINATE (ER) 100 MG TAB.ER.24H PO SCH (21:05)
[2021-09-01 07:11] VITALS: BP 112/72; PULSE 62; RESP 18; TEMP 98
[2021-09-01] MEDS ORDERED: PANTOPRAZOLE 40 MG TABLET PO SCH (07:30)
[2021-09-01] MEDS ORDERED: LINAGLIPTIN 5 MG TABLET PO SCH (07:30)
[2021-09-01 07:45] LABS: Glucose,Whole Blood 121 mg/dL (75-99)
[2021-09-01] MEDS: APIXABAN 5 MG TAB PO SCH (08:35)
[2021-09-01] MEDS: METOPROLOL SUCCINATE (ER) 100 MG TAB.ER.24H PO SCH (08:35)
[2021-09-01] MEDS: DRONEDARONE 400 MG TAB PO SCH (08:35)
[2021-09-01] MEDS ORDERED: lisinopriL 5 MG TAB PO SCH (09:00)
--- NOTE | 2021-09-01 09:43 | US ---
EXAMINATION TYPE: US kidneys/renal and bladder DATE OF EXAM: 09/01/2021 COMPARISON: NONE CLINICAL HISTORY: hematuria. Hematuria. EXAM MEASUREMENTS: Right Kidney: 11.4 x 5.9 x 5.6 cm Left Kidney: 10.8 x 5.7 x 4.6 cm Right Kidney: Multiple anechoic areas seen, largest measures 4.1 x 3.3 x 3.3 cm. Hypoechoic area seen medially: 2.3 x 2.2 x 2.3 cm. Left Kidney: Multiple anechoic areas seen, largest measures: 1.8 x 2.2 x 1.6 cm. Hyperechoic focus se en measurin.4 x 0.5 x 0.5 cm. Bladder: Appears anechoic. Bilateral Jets seen: Yes Incidentally, prostate appears prominent in bladder images measuring 4.2 x 5.4 x 3.9 cm. IMPRESSION: 1. Bilateral renal cysts with no hydronephrosis. 5 mm nonobstructing left renal stone. 2. Prostate hypertrophy 3. 2.3 cm hypoechoic area involving the right kidney does not meet the criteria of a simple cyst. CT scan recommended
[2021-09-01 10:04] LABS: African American GFR (CKD) 60 (>60 ml/min/1.73 sqM); Anion Gap 6 mmol/L; Blood Urea Nitrogen 29 mg/dL (9-20); Calcium 9.3 mg/dL (8.4-10.2); Carbon Dioxide 24 mmol/L (22-30); Chloride 105 mmol/L (98-107); Glucose 161 mg/dL (74-99); Non-African American GFR(CKD) 52 (>60 ml/min/1.73 sqM); Potassium 4.6 mmol/L (3.5-5.1); Sodium 135 mmol/L (137-145)
--- NOTE | 2021-09-01 11:28 | P.DS ---
Providers Attending physician: Adriel Agrawal Primary care physician: [place] Course: Patient is doing well He denies any chest discomfort no dizziness lightheadedness or palpitations He does complain of some flank discomfort which she's experienced over the last week or so Yesterday he had a liver hematuria in his Andrade The Andrade has been discontinued Otherwise the patient is comfortable vitals are stable blood pressure is normal heart sounds are normal rhythm is regular twelve-lead EKG shows nonspecific ST-T changes post ablation Groins of healed well no hematoma normal S1 normal S2 no murmurs or gallop or rub Lungs no rhonchi no crackles No JVD Impression Atrial fibrillation persistent, failed Multaq Status post cryoablation of the pulmonary veins and linear ablation of left atrial septum Dilated left atrium Renal ultrasound shows simple cysts as well as possible complex cyst which needs further evaluation and urology referral as an outpatient 5 mm kidney stone that is likely the cause of his symptoms Creatinine 1.3 Plan Reduce metoprolol 200 mg by mouth daily Reduce lisinopril 2.5 mg by mouth daily temporarily and once his renal function improves like to increase it back to 5 mg daily Continue anticoagulation Follow-up with primary care physician Follow-up with urology Discharge home Plan - Discharge Summary Discharge Rx Participant: No New Discharge Prescriptions: New Lisinopril [Zestril] 2.5 mg PO DAILY #90 tab Discontinued lisinopriL [Zestril] 5 mg PO DAILY No Action Pioglitazone [Actos] 15 mg PO AC-SUPPER sitaGLIPtin [Januvia] 100 mg PO AC-BRKFST Omeprazole 40 mg PO DAILY Empagliflozin [Jardiance] 25 mg PO AC-LUNCH allopurinoL [Zyloprim] 300 mg PO DAILY Apixaban [Eliquis] 5 mg PO 0900,2100 Atorvastatin [Lipitor] 40 mg PO HS Donepezil [Aricept] 5 mg PO HS Dronedarone [Multaq] 400 mg PO AC-BID Memantine [Namenda] 5 mg PO HS Metoprolol Succinate [Toprol XL] 100 mg PO BID Discharge Medication List Empagliflozin [Jardiance] 25 mg PO AC-LUNCH 07/09/19 [History] Omeprazole 40 mg PO DAILY 07/09/19 [History] Pioglitazone [Actos] 15 mg PO AC-SUPPER 07/09/19 [History] allopurinoL [Zyloprim] 300 mg PO DAILY 07/09/19 [History] sitaGLIPtin [Januvia] 100 mg PO AC-BRKFST 07/09/19 [History] Apixaban [Eliquis] 5 mg PO 0900,2100 08/21/19 [History] Atorvastatin [Lipitor] 40 mg PO HS 08/21/19 [History] Donepezil [Aricept] 5 mg PO HS 07/01/21 [History] Dronedarone [Multaq] 400 mg PO AC-BID 07/01/21 [History] Memantine [Namenda] 5 mg PO HS 07/01/21 [History] Metoprolol Succinate [Toprol XL] 100 mg PO BID 07/01/21 [History] Lisinopril [Zestril] 2.5 mg PO DAILY #90 tab 09/01/21 [Rx] Follow up Appointment(s)/Referral(s): Adriel Agrawal MD [STAFF PHYSICIAN] - 2 Weeks Activity/Diet/Wound Care/Special Instructions: Post EP study - Ablation instructions 1. Keep access sites dry for 2 days. 2. No heavy lifting or straining for 2 days. 3. Avoid bending the hips repeatedly for 2 days. 4. You may go up and down stairs slowly Call if the following is noted 1. Bleeding, increasing swelling or pain at the access sites. 2. Increasing chest discomfort, especially upon taking a deep breath. 3. Increasing shortness of breath, at rest or with exertion. 4. Undue cough / phlegm 5. Difficulty or pain while swallowing. 6. Pain or change in color in the extremities. 7. Fever, chills, rigors. 8. Increasing headache or neurologic symptoms. 9. Dizziness, fainting, palpitations Reduce lisinopril to 2.5 mg by mouth daily Reduce metoprolol succinate to 100 mg by mouth daily Continue anticoagulation Adequate hydration Primary care physician Follow Dr. Agrawal Follow-up with urology and defer evaluation of renal cysts Discharge Disposition: HOME SELF-CARE
[2021-09-01] MEDS ORDERED: Empagliflozin [Jardiance] PO SCH (12:30)
[2021-09-01 19:37] LABS: Chol/HDL Ratio 2.59 Ratio
== END 2021-09-01 12:25 | disposition home or self-care (01) ==
LOC: CATHEP 10:18 → 6NMEDSUR 16:26 → CATHEP 09-01 12:25
PROVIDERS: ATTEND Internal Medicine Clinical Cardiac Electrophysiology
DX: I48.11 Longstanding persistent atrial fibrillation (principal); I25.10 Atherosclerotic heart disease of native coronary artery without angina pectoris; E11.9 Type 2 diabetes mellitus without complications; E78.5 Hyperlipidemia, unspecified; Z20.822 Contact with and (suspected) exposure to COVID-19; Z72.0 Tobacco use; R31.9 Hematuria, unspecified; N28.1 Cyst of kidney, acquired; Z79.01 Long term (current) use of anticoagulants; Z79.84 Long term (current) use of oral hypoglycemic drugs; Z79.899 Other long term (current) drug therapy
CPT/HCPCS: 92960; 93662; 93613; 93656; 93657; 80061; 80048; 87635; 76770; C1894 ×2; C1769 ×4; C1760; C1730 ×2; C1759; C1893; C1733; C1766; C1732; J2250; J2720; J1644 ×3; J2001; J3010; J1170 ×2; J2370; J0330; J2704; Q9967

== ENCOUNTER → 2022-06-25 | Outpatient (CLI) | payer MEDICARE ==
--- NOTE | 2022-06-26 09:38 | CT ---
EXAMINATION TYPE: CT abdomen pelvis wo con DATE OF EXAM: 06/25/2022 COMPARISON: Ultrasound 09/01/2021 INDICATION: Cyst of kidney DLP: 679 mGycm, Automated exposure control for dose reduction was used. CONTRAST: 0 mL of Isovue 300. Study performed without Oral Contrast TECHNIQUE: Axial images were obtained from above the diaphragm to the pubic rami in the axial plane a t 5 mm thick sections. Reconstructed images are reviewed on the computer in the coronal plane. FINDINGS: Limited CT sections are obtained the lung bases. The lung bases are clear. CT ABDOMEN: Liver: Normal Spleen: Normal Pancreas: Normal Adrenal glands: The adrenal glands are normal. Gallbladder: Normal Kidneys: No masses are evident. No hydronephrosis is present. There is a 2.8 x 5.0 cm cyst on the p osterior lateral right mid kidney measuring 13 Hounsfield units. Couple smaller exophytic cysts. The anterior at this level measuring 1.4-1.9 cm, 7 and 14 Hounsfield units respectively. A couple of smal l exophytic cysts are present on the left kidney measuring 2.1 and 1.3 cm measuring 12 Hounsfield uni ts each. No renal stones are identified. Aorta: Vascular calcification is within the aorta. Inferior vena cava: Normal. CT PELVIS: Loops of bowel within the abdomen and pelvis are normal. Scattered diverticuli without acute diverti culitis or within the sigmoid colon. The study is performed without oral contrast limiting evaluati on. Appendix: Normal as visualized. Urinary bladder: Normal. Genitourinary structures: State is prominent and contains calcification. Osseous structures: No suspicious lytic or sclerotic lesions. Spondylolysis of L5 is present. IMPRESSIONS: 1. Benign-appearing bilateral renal cysts.
== END | disposition home or self-care (01) ==
LOC: RADCTMAIN 07:57
PROVIDERS: ATTEND Urology
DX: N28.1 Cyst of kidney, acquired (principal)
CPT/HCPCS: 74176

== ENCOUNTER 2023-06-30 17:39 | Observation (INO) | payer MEDICARE ==
[2023-06-30] MEDS ORDERED: DILTIAZEM DRIP BOLUS FROM BAG 1 MG SOLN IV ONE ×3 (17:48→21:23)
[2023-06-30] MEDS: DILTIAZEM 125 MG in SODIUM CHLORIDE 0.9% 100 ML IV SCH ×2 (18:36→19:15)
[2023-06-30 19:19] VITALS: RESP 18
--- NOTE | 2023-06-30 20:04 | ED ---
Arrhythmia/Palpitations HPI - General Chief Complaint: Arrhythmia/Palpitations Stated Complaint: afib, tachycardia Time Seen by Provider: 06/30/23 17:39 Source: patient, EMS, RN notes reviewed, old records reviewed Mode of arrival: EMS - History of Present Illness Initial Comments: 73-year-old male history of atrial fibrillation who was seen at [facility] earlier today due to burning retrosternal chest discomfort and found to be in a rapid atrial flutter. Done including IV Cardizem which did seem initially did have some effect on a but later he went back into it he is on anticoagulants are ready. His initial troponin was within normal limits his d- dimer was slightly elevated he does have a slightly elevated creatinine. Transferred here for higher level care he does see Dr. Cavanaugh from cardiology. No new complaints he has no chest discomfort at this time. MD Complaint: rapid heart beat - Related Data Home Medications Medication Instructions Recorded Confirmed Omeprazole 40 mg PO DAILY 07/09/19 06/30/23 Pioglitazone [Actos] 15 mg PO DAILY 07/09/19 06/30/23 allopurinoL [Zyloprim] 300 mg PO DAILY 07/09/19 06/30/23 sitaGLIPtin [Januvia] 100 mg PO DAILY 07/09/19 06/30/23 Atorvastatin [Lipitor] 40 mg PO DAILY 08/21/19 06/30/23 Donepezil [Aricept] 5 mg PO DAILY 07/01/21 06/30/23 Memantine [Namenda] 5 mg PO HS 07/01/21 06/30/23 Dabigatran Etexilate Mesylate 150 mg PO DAILY 06/30/23 06/30/23 [Dabigatran Etexilate] Metoprolol Tartrate [Lopressor] 100 mg PO BID 06/30/23 06/30/23 lisinopriL [Zestril] 5 mg PO DAILY 06/30/23 06/30/23 Allergies Allergy/AdvReac Type Severity Reaction Status Date / Time cottonwood tree Allergy congestion Uncoded 06/30/23 19:38 Review of Systems ROS Statement: Those systems with pertinent positive or pertinent negative responses have been documented in the HPI. ROS Other: All systems not noted in ROS Statement are negative. 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 Start of cataracts History of Any Multi-Drug Resistant Organisms: None Reported Past Surgical History: Cardiac Ablation, Heart Catheterization, Orthopedic Surgery, Tonsillectomy Additional Past Surgical History / Comment(s): heart cath no stent 07/09/2019, melanoma removed from back, arthroscopy rt knee, RK eye surgery, Past Anesthesia/Blood Transfusion Reactions: No Reported Reaction Past Psychological History: Anxiety Smoking Status: Former smoker Past Alcohol Use History: Occasional Past Drug Use History: None Reported - Past Family History Mother Family Medical History: Cancer Additional Family Medical History / Comment(s): Pancreatic CA Father Additional Family Medical History / Comment(s): suicide d/t [place] General Exam - General Exam Comments Initial Comments: This is a well-developed well-nourished awake alert oriented 4 male General appearance: alert, in no apparent distress Head exam: Present: atraumatic, normocephalic, normal inspection Eye exam: Present: normal appearance, PERRL, EOMI. Absent: scleral icterus, conjunctival injection, periorbital swelling ENT exam: Present: normal exam, mucous membranes moist Neck exam: Present: normal inspection. Absent: tenderness, meningismus, lymphadenopathy Respiratory exam: Present: normal lung sounds bilaterally. Absent: respiratory distress, wheezes, rales, rhonchi, stridor Cardiovascular Exam: Present: tachycardia, normal heart sounds. Absent: systolic murmur, diastolic murmur, rubs, gallop, clicks GI/Abdominal exam: Present: soft, normal bowel sounds. Absent: distended, tenderness, guarding, rebound, rigid Extremities exam: Present: normal inspection, full ROM, normal capillary refill. Absent: tenderness, pedal edema, joint swelling, calf tenderness Back exam: Present: normal inspection Neurological exam: Present: alert, oriented X3, CN II-XII intact Psychiatric exam: Present: normal affect, normal mood Skin exam: Present: warm, dry, intact, normal color. Absent: rash Course Vital Signs 06/30/23 06/30/23 06/30/23 17:42 18:43 18:44 Temperature 97.6 F Pulse Rate 142 H 141 H Pulse Rate [ 142 H Senior Mechanical Technician ] Respiratory 20 20 Rate Blood Pressure 143/104 142/100 O2 Sat by Pulse 97 97 Oximetry 06/30/23 06/30/23 19:10 19:34 Temperature Pulse Rate 141 H 86 Pulse Rate [ Senior Mechanical Technician ] Respiratory 18 18 Rate Blood Pressure 131/95 128/87 O2 Sat by Pulse 98 98 Oximetry - Reevaluation(s) Reevaluation #1: 06/30/23 20:05 Patient continued to be an atrial flutter/fibrillation he did get a rebolus of Cardizem and elevation of his drip he did ultimately convert. Post conversion EKG showed a atrial fibrillation/flutter rate of 73 QRS 88 QT since QTC 359/[address]-T wave configuration. EKG Findings - EKG Results: EKG: interpreted by LEAH (Initial EKG interpreted by me atrial flutter rate 141 QRS duration 85 daily since QTC 265/[address] configuration) Medical Decision Making - Medical Decision Making I did review the materials presented from [facility] including EKGs and imaging. Discussed the case with Dr. Jules patient will be admitted with cardiology consultation with Dr. Cavanaugh.Was pt. sent in by a medical professional or institution (, PA, COMPOUNDING SCALER, urgent care, hospital, or fpc...) When possible be specific @ -[facility] Did you speak to anyone other than the patient for history (EMS, parent, family, police, friend...)? What history was obtained from this source @ -ER physician at [facility] Did you review nursing and triage notes (agree or disagree)? Why? @ -I reviewed and agree with nursing and triage notes Were old charts reviewed (outside hosp., previous admission, EMS record, old EKG, old radiological studies, urgent care reports/EKG's, fpc records)? Report findings @ -[facility] emergency department old charts were reviewed Differential Diagnosis (chest pain, altered mental status, abdominal pain women, abdominal pain men, vaginal bleeding, weakness, fever, dyspnea, syncope, hea dache, dizziness, GI bleed, back pain, seizure, CVA, palpatations, mental health, musculoskeletal)? @ -Rapid atrial flutter, chest pain EKG interpreted by me (3pts min.). @ -As above initial EKG interpreted by me atrial flutter rate of 141 QRS duration 85 daily since QTC 265/[address]. Patient did have a post conversion EKG interpreted by me showing atrial flutter fibrillation rate of 73 QRS 88 QT since QTC 359/386 nonspecific T-wave configuration X-rays interpreted by me (1pt min.). @ -Report from [facility] reviewed CT interpreted by me (1pt min.). @ -None done U/S interpreted by me (1pt. min.). @ -None done What testing was considered but not performed or refused? (CT, X-rays, U/S, labs)? Why? @ -None What meds were considered but not given or refused? Why? @ -None Did you discuss the management of the patient with other professionals (professionals i.e. , PA, COMPOUNDING SCALER, lab, RT, psych nurse, professor of social work, chief relay tester, teacher, weapons officer naval activity, case resolution specialist)? Give summary @ -Dr. Jules Was smoking cessation discussed for >3mins.? @ -No Was critical care preformed (if so, how long)? @ -31 minutes which included multiple reevaluation the patient in dosing adjustments for Cardizem for rate control. Were there social determinants of health that impacted care today? How? (Homelessness, low income, unemployed, alcoholism, drug addiction, transportation, low edu. Level, literacy, decrease access to med. care, [facility], rehab)? @ -No Was there de-escalation of care discussed even if they declined (Discuss DNR or withdrawal of care, Hospice)? DNR status @ -No What co-morbidities impacted this encounter? (DM, HTN, Smoking, COPD, CAD, Cancer, CVA, ARF, Chemo, Hep., AIDS, mental health diagnosis, sleep apnea, morbid obesity)? @ -Atrial fibrillation Was patient admitted / discharged? Hospital course, mention meds given and route, prescriptions, significant lab abnormalities, going to OR and other pertinent info. @ -hospital course it was admitted for evaluation by cardiology or refractory atrial flutter/fibrillation Undiagnosed new problem with uncertain prognosis? @ -No Drug Therapy requiring intensive monitoring for toxicity (Heparin, Nitro, Insulin, Cardizem)? @ -Is Cardizem Were any procedures done? @ -No Diagnosis/symptom? @ -Rapid atrial flutter/fibrillation, chest pain Acute, or Chronic, or Acute on Chronic? @ -Acute on chronic Uncomplicated (without systemic symptoms) or Complicated (systemic symptoms)? @ -Complicated Side effects of treatment? @ -No Exacerbation, Progression, or Severe Exacerbation? @ -Severe exacerbation Poses a threat to life or bodily function? How? (Chest pain, USA, PA, pneumonia, PE, COPD, DKA, ARF, appy, cholecystitis, CVA, Diverticulitis, Homicidal, Suicidal, threat to staff... and all critical care pts) @ -Yes atrial flutter, chest pain Critical Care Time Critical Care Time: Yes Total Critical Care Time: 31 Disposition Clinical Impression: Atrial flutter with rapid ventricular response, Chest pain Disposition: ADMITTED IP TO THIS [facility] Condition: Stable Referrals: Evin Shell MD [Primary Care Provider] - 1-2 days Decision Date: 06/30/23 Decision Time: 20:00
[2023-06-30] MEDS ORDERED: NALOXONE 0.4 MG/ML 1 ML VIAL IV PRN (20:21)
[2023-06-30] MEDS ORDERED: ACETAMINOPHEN TAB 325 MG TAB PO PRN (20:21)
[2023-06-30] MEDS: METOPROLOL TARTRATE 50 MG TAB PO SCH (21:00)
[2023-06-30] MEDS ORDERED: MEMANTINE 5 MG TAB PO SCH (21:00)
[2023-06-30] MEDS: SODIUM CHLORIDE 0.9% 1,000 ML IV SCH (21:01)
[2023-06-30] MEDS ORDERED: ONDANSETRON 4 MG/2 ML VIAL IVP PRN (21:37)
[2023-06-30] MEDS ORDERED: CALCIUM CARBONATE 500 MG CHEWABLE PO PRN (21:37)
[2023-06-30] MEDS ORDERED: LORazepam 0.5 MG TAB PO PRN (21:37)
[2023-06-30] MEDS ORDERED: MELATONIN 3 MG TABLET PO PRN (21:37)
[2023-06-30] MEDS ORDERED: LACTULOSE 20 GM/30 ML CUP PO PRN (21:37)
[2023-06-30] MEDS ORDERED: DEXTROSE 50% SYRINGE 50 ML IVP PRN ×2 (21:38)
--- NOTE | 2023-06-30 21:39 | P.HPIM ---
History of Present Illness H&P Date: 06/30/23 Chief Complaint: Chest tightness This is a pleasant 73-year-old patient follows with Dr. Shell. Alteration Workroom Supervisor Dr. Vanessa Cavanaugh. Yesterday patient noticed some heartburn. Progressively got worse. Patient went down to the [facility] today the heart reveals found to be in the 140s. More chest pressure across the chest. Also going down the arm. A bit tired. No dizziness no lightheadedness. Patient was further transferred down here. Currently on Cardizem drip. at the bedside. Patient has a known history of atrial fibrillation. 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 . 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 Short history of smoking in the past. Physical examination: VITAL SIGNS: 97.6, 142, 20, 1 43 x 1 04, 97% room air upon presentation GENERAL: BMI 24.6, declining but awake not in distress. EYES: Pupils equal. Conjunctiva normal. HEENT: External appearance of nose and ears normal, oral cavity grossly normal. NECK: JVD not raised; masses not palpable. HEART: Heart sounds irregular; no edema. LUNGS: Respiratory rate normal; clear to auscultation. ABDOMEN: Soft, nontender, liver spleen not palpable, no masses palpable. PSYCH: Alert and oriented x3; mood and affect normal. MUSCULOSKELETAL:No Clubbing/cyanosis;muscles-grossly intact. OA NEUROLOGICAL: Cranial nerves grossly intact; no facial asymmetry, power and sensation grossly intact. LYMPHATICS: No lymph nodes palpable in the axilla and neck INVESTIGATIONS, reviewed in the clinical context: Telemetry: Atrial fibrillation. Rate controlled Assessment plan: -Permanent atrial fibrillation now presented with a rapid ventricular rate. IV Cardizem drip. pradaxa. Lopressor -Chest pressure. Rule out underlying cardiac ischemia precipitated by uncontrolled heart rate -GERD Omeprazole -Diabetes mellitus type 2 and oral hypoglycemic Actos, Januvia -Essential hypertension Zestril, Lopressor -Chronic gout Allopurinol -Hyperlipidemia Lipitor -Mild cognitive impairment Aricept, Namenda Care discussed with the patient at the bedside. 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 Start of cataracts History of Any Multi-Drug Resistant Organisms: None Reported Past Surgical History: Cardiac Ablation, Heart Catheterization, Orthopedic Surgery, Tonsillectomy Additional Past Surgical History / Comment(s): heart cath no stent 07/09/2019, melanoma removed from back, arthroscopy rt knee, RK eye surgery, Past Anesthesia/Blood Transfusion Reactions: No Reported Reaction Past Psychological History: Anxiety Smoking Status: Former smoker Past Alcohol Use History: Occasional Past Drug Use History: None Reported - Past Family History Mother Family Medical History: Cancer Additional Family Medical History / Comment(s): Pancreatic CA Father Additional Family Medical History / Comment(s): suicide d/t CA Medications and Allergies Home Medications Medication Instructions Recorded Confirmed Type Omeprazole 40 mg PO DAILY 07/09/19 06/30/23 History Pioglitazone [Actos] 15 mg PO DAILY 07/09/19 06/30/23 History allopurinoL [Zyloprim] 300 mg PO DAILY 07/09/19 06/30/23 History sitaGLIPtin [Januvia] 100 mg PO DAILY 07/09/19 06/30/23 History Atorvastatin [Lipitor] 40 mg PO DAILY 08/21/19 06/30/23 History Donepezil [Aricept] 5 mg PO DAILY 07/01/21 06/30/23 History Memantine [Namenda] 5 mg PO HS 07/01/21 06/30/23 History Dabigatran Etexilate Mesylate 150 mg PO DAILY 06/30/23 06/30/23 History [Dabigatran Etexilate] Metoprolol Tartrate [Lopressor] 100 mg PO BID 06/30/23 06/30/23 History lisinopriL [Zestril] 5 mg PO DAILY 06/30/23 06/30/23 History Allergies Allergy/AdvReac Type Severity Reaction Status Date / Time cottonwood tree Allergy congestion Uncoded 06/30/23 19:38 Physical Exam Vitals: Vital Signs Temp Pulse Pulse Resp BP Pulse Ox 06/30/23 21:00 144 H 18 149/98 99 06/30/23 19:34 86 18 128/87 98 06/30/23 19:10 141 H 18 131/95 98 06/30/23 18:44 142 H 06/30/23 18:43 141 H 20 142/100 97 06/30/23 17:42 97.6 F 142 H 20 143/104 97 Intake and Output 06/30/23 06/30/23 06/30/23 06:59 14:59 22:59 Intake Total 6.5 Balance 6.5 Intake: Intake, IV Titration 6.5 Amount Diltiazem 125 mg In 6.5 Sodium Chloride 0.9% 100 ml @ 10 MG/HR 10 mls/hr IV .[id number] [facility] Rx#: [id number] Other: Weight 98.883 kg
[2023-06-30 22:45] LABS: Glucose,Whole Blood 172 mg/dL (70-110)
[2023-06-30] MEDS: INSULIN ASPART (NovoLOG) 100 UNIT/ML VIAL SQ SCH (22:47)
[2023-07-01 06:15] LABS: Glucose,Whole Blood 122 mg/dL (70-110)
[2023-07-01] MEDS: INSULIN ASPART (NovoLOG) 100 UNIT/ML VIAL SQ SCH (06:18)
[2023-07-01] MEDS: SODIUM CHLORIDE 0.9% 1,000 ML IV SCH (06:45)
[2023-07-01] MEDS ORDERED: PANTOPRAZOLE 40 MG TABLET PO SCH (07:30)
[2023-07-01 08:48] VITALS: BP 131/86; PULSE 68; TEMP 97.9
[2023-07-01 08:48] LABS: Basophils % (A) 1 %; Eosinophils # (A) 0.1 k/uL (0-0.7); Eosinophils % (A) 2 %; HGB 14.8 gm/dL (13.0-17.5); Lymphocytes # (A) 1.7 k/uL (1.0-4.8); Lymphocytes % (A) 27 %; MCH 32.8 pg (25.0-35.0); MCHC 33.6 g/dL (31.0-37.0); MCV 97.4 fL (80.0-100.0); Mean Platelet Volume 8.5; Monocytes # (A) 0.5 k/uL (0-1.0); Monocytes % (A) 8 %; Neutrophils # (A) 3.7 k/uL (1.3-7.7); Neutrophils % (A) 58 %; Platelet Count 160 k/uL (150-450); RBC 4.51 m/uL (4.30-5.90); WBC 6.4 k/uL (3.8-10.6)
[2023-07-01] MEDS ORDERED: ATORVASTATIN 40 MG TAB PO SCH (09:00)
[2023-07-01] MEDS ORDERED: allopurinoL 300 MG TAB PO SCH (09:00)
[2023-07-01] MEDS ORDERED: lisinopriL 5 MG TAB PO SCH (09:00)
[2023-07-01] MEDS ORDERED: LINAGLIPTIN 5 MG TABLET PO SCH (09:00)
[2023-07-01] MEDS ORDERED: DABIGATRAN 150 MG CAP PO SCH (09:00)
[2023-07-01] MEDS ORDERED: DONEPEZIL 5 MG TAB PO SCH (09:00)
[2023-07-01] MEDS ORDERED: PIOGLITAZONE 15 MG TAB PO SCH (09:00)
[2023-07-01 09:11] LABS: African American GFR (CKD) 80 (>60 ml/min/1.73 sqM); Anion Gap 9 mmol/L; Blood Urea Nitrogen 21 mg/dL (9-20); Calcium 8.7 mg/dL (8.4-10.2); Carbon Dioxide 20 mmol/L (22-30); Chloride 109 mmol/L (98-107); Glucose 155 mg/dL (74-99); Non-African American GFR(CKD) 70 (>60 ml/min/1.73 sqM); Potassium 4.5 mmol/L (3.5-5.1); Sodium 138 mmol/L (137-145)
[2023-07-01] MEDS: METOPROLOL TARTRATE 50 MG TAB PO SCH (09:33)
--- NOTE | 2023-07-01 09:35 | CONS ---
CONSULTATION CHIEF COMPLAINT: Sustained palpitations. HISTORY OF PRESENT ILLNESS: Octavio is a 73-year-old gentleman with history of persistent atrial fibrillation, who underwent ablation in August of 2021, presented to hospital with sustained palpitations. He stated that he has noticed that his heart rate was elevated in the 140s. As the symptoms persisted, went to the emergency room at [place], had some retrosternal chest discomfort and was found to be in atrial flutter with poorly controlled ventricular rate. Subsequently, he had been transferred over to [facility], where he was admitted and we have been consulted. At the time of my evaluation, the patient appears comfortable at rest, remains in atrial flutter with controlled ventricular rate. He denies chest pain, difficulty in breathing, dizziness, or syncope. He is currently on Cardizem 10 mg, I am going to cut the dose down to 5 mg an hour and stop it, and start him on Cardizem 30 q.8. He is already on metoprolol for rate control and Pradaxa for anticoagulation. The patient states that he has to go for a golf game this afternoon with his son and his future and ten other families, an important social event and that he wishes to make it. I do not see the need to keep him in the hospital at this time. My plan is to cardiovert him sometime next week, which I can do as outpatient. I will obtain a 2D echo to evaluate his LV function. PAST MEDICAL HISTORY: Significant for atrial fibrillation, status post ablation; mild dementia; hypertension; dyslipidemia; and diabetes. CURRENT MEDICATIONS: Include: 1. Pradaxa 150 mg. 2. Actos. 3. Omeprazole. 4. Lisinopril 5 mg daily. 5. Lipitor. 6. Januvia. 7. Aricept. 8. Namenda. 9. Lopressor. ALLERGIES: No known drug allergies. FAMILY HISTORY: Negative for premature coronary artery disease. SOCIAL HISTORY: Negative for smoking, EtOH abuse or drug abuse. REVIEW OF SYSTEMS: HEENT: Unremarkable. CARDIAC: As described above. RESPIRATORY: Negative. GI: Negative. GENITOURINARY: Negative. ALLERGY/IMMUNOLOGY: Negative. SKIN: Negative. MUSCULOSKELETAL: Significant for arthritis. PSYCHOSOCIAL: Negative. DERM: Negative. CONSTITUTIONAL: Negative. ONCOLOGICAL: Negative. Rest of the system review is not relevant. PHYSICAL EXAMINATION: GENERAL: Comfortable at rest. VITAL SIGNS: Heart rate is 68 beats per minute, blood pressure is 130/82, respiratory rate is 18, and O2 saturation is 99% on room air. NECK: There is no jugular venous distention. Carotid upstroke is normal. There is no bruit. CHEST: Reveals good air entry bilaterally. HEART: Reveals first and second heart sounds. No gallop. No murmur. No rub. ABDOMEN: Soft, nontender. EXTREMITIES: Do not reveal any edema. Peripheral pulses are felt. LABORATORY DATA: Labs have been reviewed. Troponins are negative. EKGs have been reviewed. ASSESSMENT: 1. Atypical atrial flutter with poorly controlled ventricular rate. 2. History of atrial fibrillation, status post ablation. PLAN: I am going to add Cardizem, stop the IV Cardizem. Obtain a 2D echo. Resume the Pradaxa and consider an outpatient MARIANA and cardioversion. I am going to taper and stop the Cardizem, and if the heart rate is well controlled, ambulate him and hopefully discharge him home later this afternoon. An echo is going to be done sometime this morning. MMODL / IJN: [id number] /
--- NOTE | 2023-07-01 10:34 | CA ---
Transthoracic Echo Report Name: Octavio Berkowitz Age: 73 Gender: M : 1950 Exam Date: 07/01/2023 08:59 Exam Location: [facility] Ht (in): 79 Wt (lb): 218 Ordering Physician: Pascale Peguero Attending/Referring Phys: Office Rental Clerk Deepika Sherman [facility] [[email or web address]] Procedure CPT: Indications: LVF Cardiac Hx: Technical Quality: Technically difficult study Contrast 1: Total Dose (mL): Contrast 2: Total Dose (mL): MEASUREMENTS (Male / Female) Normal Values 2D ECHO LV Diastolic Diameter PLAX 5.2 cm 4.2 - 5.9 / 3.9 - 5.3 cm LV Systolic Diameter PLAX 4.3 cm IVS Diastolic Thickness 1.0 cm 0.6 - 1.0 / 0.6 - 0.9 cm LVPW Diastolic Thickness 1.0 cm 0.6 - 1.0 / 0.6 - 0.9 cm LV Relative Wall Thickness 0.4 LVOT Diameter 2.1 cm Ascending Aorta Diameter 3.6 cm M-MODE Aortic Root Diameter MM 3.1 cm LA Systolic Diameter MM 4.8 cm LA Ao Ratio MM 1.5 AV Cusp Separation MM 2.3 cm DOPPLER AV Peak Velocity 83.4 cm/s AV Peak Gradient 2.8 mmHg AV Mean Velocity 66.9 cm/s AV Mean Gradient 1.9 mmHg AV Velocity Time Integral 18.5 cm LVOT Peak Velocity 65.5 cm/s LVOT Peak Gradient 1.7 mmHg LVOT Velocity Time Integral 13.6 cm LVOT Stroke Volume 46.8 cm??? LVOT Stroke Volume Index 19.8 ml/m??? LVOT Cardiac Index 1535.5 cm???/min???m??? AV Area Cont Eq vti 2.5 cm??? AV Area Cont Eq pk 2.7 cm??? Mitral E Point Velocity 75.3 cm/s MV Deceleration Time 227.4 ms LV E' Lateral Velocity 12.1 cm/s Mitral E to LV E' Lateral Ratio 6.2 LV E' Septal Velocity 12.1 cm/s Mitral E to LV E' Septal Ratio 6.2 TR Peak Velocity 228.1 cm/s TR Peak Gradient 20.8 mmHg Right Atrial Pressure 15.0 mmHg Pulmonary Artery Systolic Pressu 35.8 mmHg Right Ventricular Systolic Press 35.8 mmHg FINDINGS Left Ventricle Left ventricular wall thickness normal. Left ventricular cavity size normal. Left ventricular ejection fraction is estimated at 50%. Mildly reduced global left ventricular systolic function. Right Ventricle Severe right ventricular dilatation. Mild pulmonary hypertension. Right Atrium Severe right atrial dilatation. Left Atrium Normal left atrial size. Mitral Valve Structurally normal mitral valve. Mild mitral regurgitation. Aortic Valve Trileaflet aortic valve. Thickened aortic valve without stenosis. No aortic regurgitation. Tricuspid Valve Structurally normal tricuspid valve. [id number] tricuspid regurgitation. Pulmonic Valve Structurally normal pulmonic valve. No pulmonic regurgitation. Pericardium No pericardial effusion. Aorta Normal size aortic root and proximal ascending aorta. CONCLUSIONS Preserved LV systolic function Mild mitral regurgitation Previewed by: Dr. Bebo Cavanaugh MD (Electronically Signed) Final Date: 01 July 2023 10:33
[2023-07-01] MEDS ORDERED: DILTIAZEM ORAL 30 MG TAB PO SCH (10:45)
[2023-07-01 11:39] LABS: Glucose,Whole Blood 165 mg/dL (70-110)
--- NOTE | 2023-08-05 20:45 | P.DS ---
Providers Date of admission: 06/30/23 20:21 Expected date of discharge: 07/01/23 Attending physician: Sam Jules Consults: 06/30/23 20:21 Consult Physician Routine Consulting Provider: Bebo Cavanaugh Consult Reason/Comments: Rapid atrial flutter, chest pain Do you want consulting provider notified?: Yes Primary care physician: [facility] Course: This is a pleasant 73-year-old patient follows with Dr. Shell. 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 Yesterday patient noticed some heartburn. Progressively got worse. Patient went down to the [facility] today the heart reveals found to be in the 140s. More chest pressure across the chest. Also going down the arm. A bit tired. No dizziness no lightheadedness. Patient was further transferred down here. Currently on Cardizem drip. at the bedside. Patient has a known history of atrial fibrillation. -Permanent atrial fibrillation now presented with a rapid ventricular rate. IV Cardizem drip. pradaxa. Lopressor -Chest pressure. Rule out underlying cardiac ischemia precipitated by uncontrolled heart rate -GERD Omeprazole -Diabetes mellitus type 2 and oral hypoglycemic Actos, Januvia -Essential hypertension Zestril, Lopressor -Chronic gout Allopurinol -Hyperlipidemia Lipitor -Mild cognitive impairment Aricept, Namenda Care discussed with the patient at the bedside. Consult cardiology Patient was transitioned to PO Cardizem and placed on Pardaxa and recommended out patient follow up for MARIANA/CVN Patient Condition at Discharge: Stable Plan - Discharge Summary Discharge Rx Participant: No New Discharge Prescriptions: Continue Pioglitazone [Actos] 15 mg PO DAILY sitaGLIPtin [Januvia] 100 mg PO DAILY Omeprazole 40 mg PO DAILY allopurinoL [Zyloprim] 300 mg PO DAILY Atorvastatin [Lipitor] 40 mg PO DAILY lisinopriL [Zestril] 5 mg PO DAILY Dabigatran Etexilate Mesylate [Dabigatran Etexilate] 150 mg PO DAILY No Action Memantine [Namenda] 5 mg PO HS Donepezil [Aricept] 5 mg PO HS Metoprolol Tartrate [Lopressor] 150 mg PO BID #0 Discharge Medication List Omeprazole 40 mg PO DAILY 07/09/19 [History] Pioglitazone [Actos] 15 mg PO DAILY 07/09/19 [History] allopurinoL [Zyloprim] 300 mg PO DAILY 07/09/19 [History] sitaGLIPtin [Januvia] 100 mg PO DAILY 07/09/19 [History] Atorvastatin [Lipitor] 40 mg PO DAILY 08/21/19 [History] Dabigatran Etexilate Mesylate [Dabigatran Etexilate] 150 mg PO DAILY 06/30/23 [History] lisinopriL [Zestril] 5 mg PO DAILY 06/30/23 [History] Donepezil [Aricept] 5 mg PO HS 07/07/23 [History] Memantine [Namenda] 5 mg PO HS 07/07/23 [History] Metoprolol Tartrate [Lopressor] 150 mg PO BID #0 07/09/23 [Rx] Follow up Appointment(s)/Referral(s): Evin Shell MD [Primary Care Provider] - 1-2 days Discharge Disposition: HOME SELF-CARE
== END 2023-07-01 12:19 | disposition home or self-care (01) ==
LOC: EC 17:39 → 3SCARD 20:21
PROVIDERS: ADMIT Hospitalist; ATTEND Hospitalist
DX: I48.4 Atypical atrial flutter (principal); I48.19 Other persistent atrial fibrillation; I10 Essential (primary) hypertension; E78.5 Hyperlipidemia, unspecified; E11.9 Type 2 diabetes mellitus without complications; R79.89 Other specified abnormal findings of blood chemistry; F03.90 Unspecified dementia, unspecified severity, without behavioral disturbance, psychotic disturbance, mood disturbance, and anxiety; K21.9 Gastro-esophageal reflux disease without esophagitis; M10.9 Gout, unspecified; F41.9 Anxiety disorder, unspecified; Z87.891 Personal history of nicotine dependence; Z87.442 Personal history of urinary calculi; Z85.820 Personal history of malignant melanoma of skin; Z80.0 Family history of malignant neoplasm of digestive organs; H26.9 Unspecified cataract; Z79.84 Long term (current) use of oral hypoglycemic drugs; Z79.899 Other long term (current) drug therapy; Z91.09 Other allergy status, other than to drugs and biological substances; Z79.01 Long term (current) use of anticoagulants; I69.311 Memory deficit following cerebral infarction
CPT/HCPCS: 96366 ×3; 96376; 96365; 99291; 93005; 93306; 80048; 84484; 85025; G0378 ×2; 96375

== ENCOUNTER 2023-07-07 10:57 | Observation (INO) | payer MEDICARE ==
--- NOTE | 2023-07-07 11:28 | ED ---
Arrhythmia/Palpitations HPI - General Chief Complaint: Arrhythmia/Palpitations Stated Complaint: high heart rate Time Seen by Provider: 07/07/23 11:00 Source: patient Mode of arrival: ambulatory - History of Present Illness Initial Comments: 73-year-old male with past history of paroxysmal A. fib who presents to the emergency department reporting intermittent palpitations. He was seen in the emergency department on the fourth for similar complaints. He had A. fib with RVR which was controlled with Cardizem. He was discharged home a little prematurely as he had a commitment that he couldn't miss. It was mentioned that the patient may be cardioverted. He states that he was discharged home with Cardizem every 8 hours. He has been taking the medications as directed without any missed doses. He seems when he is more active at home that he will have an elevation in his heart rate. His watch will catch him having a heart rate of 140. He denies any associated chest pain or shortness of breath with elevated heart rate. Denies any nausea or vomiting. No other alleviating, precipitating or modifying factors - Related Data Home Medications Medication Instructions Recorded Confirmed Omeprazole 40 mg PO DAILY 07/09/19 07/07/23 Pioglitazone [Actos] 15 mg PO DAILY 07/09/19 07/07/23 allopurinoL [Zyloprim] 300 mg PO DAILY 07/09/19 07/07/23 sitaGLIPtin [Januvia] 100 mg PO DAILY 07/09/19 07/07/23 Atorvastatin [Lipitor] 40 mg PO DAILY 08/21/19 07/07/23 Dabigatran Etexilate Mesylate 150 mg PO DAILY 06/30/23 07/07/23 [Dabigatran Etexilate] Metoprolol Tartrate [Lopressor] 100 mg PO BID 06/30/23 07/07/23 lisinopriL [Zestril] 5 mg PO DAILY 06/30/23 07/07/23 Donepezil [Aricept] 5 mg PO HS 07/07/23 07/07/23 Memantine [Namenda] 5 mg PO HS 07/07/23 07/07/23 Previous Rx's Medication Instructions Recorded Diltiazem Oral [Cardizem*] 30 mg PO TID 30 Days #90 tab 07/01/23 Allergies Allergy/AdvReac Type Severity Reaction Status Date / Time cottonwood tree Allergy congestion Uncoded 07/07/23 13:28 Review of Systems ROS Statement: Those systems with pertinent positive or pertinent negative responses have been documented in the HPI. ROS Other: All systems not noted in ROS Statement are negative. 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, cataracts History of Any Multi-Drug Resistant Organisms: None Reported Past Surgical History: Cardiac Ablation, Heart Catheterization, Orthopedic Surgery, Tonsillectomy Additional Past Surgical History / Comment(s): heart cath no stent 07/09/2019, m elanoma removed from back, arthroscopy rt knee, RK eye surgery, Past Anesthesia/Blood Transfusion Reactions: No Reported Reaction Past Psychological History: Anxiety Smoking Status: Never smoker Past Alcohol Use History: Occasional Past Drug Use History: None Reported - Past Family History Mother Family Medical History: Cancer Additional Family Medical History / Comment(s): Pancreatic CA Father Additional Family Medical History / Comment(s): suicide d/t [place] General Exam General appearance: alert, in no apparent distress Head exam: Present: atraumatic, normocephalic, normal inspection Eye exam: Present: normal appearance, PERRL, EOMI. Absent: scleral icterus, conjunctival injection, periorbital swelling ENT exam: Present: normal exam, mucous membranes moist Neck exam: Present: normal inspection. Absent: tenderness, meningismus, lymphadenopathy Respiratory exam: Present: normal lung sounds bilaterally. Absent: respiratory distress, wheezes, rales, rhonchi, stridor Cardiovascular Exam: Present: tachycardia, irregular rhythm, normal heart sounds. Absent: systolic murmur, diastolic murmur, rubs, gallop, clicks GI/Abdominal exam: Present: soft, normal bowel sounds. Absent: distended, tenderness, guarding, rebound, rigid Extremities exam: Present: normal inspection, full ROM, normal capillary refill. Absent: tenderness, pedal edema, joint swelling, calf tenderness Back exam: Present: normal inspection Neurological exam: Present: alert, oriented X3, CN II-XII intact Psychiatric exam: Present: normal affect, normal mood Skin exam: Present: warm, dry, intact, normal color. Absent: rash Course Vital Signs 07/07/23 07/07/23 07/07/23 11:00 11:13 12:26 Temperature 98.2 F Pulse Rate 139 H 140 H 77 Respiratory 22 18 18 Rate Blood Pressure 138/85 153/111 123/83 O2 Sat by Pulse 98 100 96 Oximetry 07/07/23 15:11 Temperature Pulse Rate 71 Respiratory 18 Rate Blood Pressure 135/83 O2 Sat by Pulse 97 Oximetry Medical Decision Making - Medical Decision Making Was pt. sent in by a medical professional or institution (, PA, TAR BOILER, urgent care, hospital, or care home...) When possible be specific @ -No Did you speak to anyone other than the patient for history (EMS, parent, family, police, friend...)? What history was obtained from this source @ -I spoke with the patient's for the history Did you review nursing and triage notes (agree or disagree)? Why? @ -I reviewed and agree with nursing and triage notes Were old charts reviewed (outside hosp., previous admission, EMS record, old EKG, old radiological studies, urgent care reports/EKG's, care home records)? Report findings @ -Patient's chart was reviewed. He was evaluated in the emergency department on the fourth for similar complaint Differential Diagnosis (chest pain, altered mental status, abdominal pain women, abdominal pain men, vaginal bleeding, weakness, fever, dyspnea, syncope, headache, dizziness, GI bleed, back pain, seizure, CVA, palpatations, mental health, musculoskeletal)? @ -Differential Palpitations Ventricular arrhythmias, atrial arrhythmias, myocardial infarction, anemia, th yrotoxicosis, electrolyte imbalance, hypokalemia, pulmonary embolism, pulmonary disease, drugs, alcohol, anxiety, stress.... This is not meant to be an all-inclusive list. EKG interpreted by me (3pts min.). @ -Yes and demonstrates a flutter with a rate of 140. QRS 105. QTC of 353. ST depression in V4 through V6. No acute ST segment elevation X-rays interpreted by me (1pt min.). @ -None done CT interpreted by me (1pt min.). @ -None done U/S interpreted by me (1pt. min.). @ -None done What testing was considered but not performed or refused? (CT, X-rays, U/S, labs)? Why? @ -None What meds were considered but not given or refused? Why? @ -Randall carolina however the patient heart rate improved before medications could be started Did you discuss the management of the patient with other professionals (professionals i.e. , PA, TAR BOILER, lab, RT, psych nurse, addiction social worker, compact assembler, teacher, weapons electrical engineering officer, bottle caser)? Give summary @ -I spoke with Dr. Agrawal in regards to the patient's. He would like me to start the patient's oral medications as he is on at home. Patient has improvement in his heart rate without any intervention at this time. States that the patient should be admitted for cardiology consultation. Patient was agreeable to this plan. Currently awaiting a bed on the floor in stable condition Was smoking cessation discussed for >3mins.? @ -No Was critical care preformed (if so, how long)? @ -No Were there social determinants of health that impacted care today? How? (Homelessness, low income, unemployed, alcoholism, drug addiction, transportation, low edu. Level, literacy, decrease access to med. care, alf, rehab)? @ -No Was there de-escalation of care discussed even if they declined (Discuss DNR or withdrawal of care, Hospice)? DNR status @ -No What co-morbidities impacted this encounter? (DM, HTN, Smoking, COPD, CAD, Cancer, CVA, ARF, Chemo, Hep., AIDS, mental health diagnosis, sleep apnea, morbid obesity)? @ -afib Was patient admitted / discharged? Hospital course, mention meds given and route, prescriptions, significant lab abnormalities, going to OR and other pertinent info. @ -Upon arrival patient was placed into room 20. A thorough history and phy sical exam was performed. Patient does have rapid heart rate of 140. IV is established and laboratory studies were conducted. He does have improvement in his heart rate without any intervention. He remains in A. fib with a controlled rate. Laboratory studies were conducted. I did speak with Dr. Agrawal in regards to the patient. He states that the patient should be placed on his oral medications and admitted to the hospital on a gambling monitor. States that he will see and evaluate patient for any additional treatment plans. Patient was agreeable to stay at this time. Bridging orders are placed and the patient is awaiting a bed on the floor in stable condition Undiagnosed new problem with uncertain prognosis? @ -No Drug Therapy requiring intensive monitoring for toxicity (Heparin, Nitro, Insulin, Cardizem)? @ -No Were any procedures done? @ -No Diagnosis/symptom? @ -A. fib with RVR Acute, or Chronic, or Acute on Chronic? @ -Acute on chronic Uncomplicated (without systemic symptoms) or Complicated (systemic symptoms)? @ -Complicated Side effects of treatment? @ -No Exacerbation, Progression, or Severe Exacerbation? @ -No Poses a threat to life or bodily function? How? (Chest pain, USA, MS, pneumonia, PE, COPD, DKA, ARF, appy, cholecystitis, CVA, Diverticulitis, Homicidal, Suicidal, threat to staff... and all critical care pts) @ -yes patient originally presented with an elevated heart rate - Lab Data Result diagrams: 07/07/23 11:16 07/07/23 11:16 Lab Results 07/07/23 07/07/23 07/07/23 Range/Units 11:16 11:16 11:16 WBC 7.7 (3.8-10.6) k/uL RBC 4.84 (4.30-5.90) m/uL Hgb 16.0 (13.0-17.5) gm/dL Hct 46.9 (39.0-53.0) % MCV 96.9 (80.0-100.0) fL MCH 33.0 (25.0-35.0) pg MCHC 34.1 (31.0-37.0) g/dL RDW 13.6 (11.5-15.5) % Plt Count 159 (150-450) k/uL MPV 7.8 Neutrophils % 68 % Lymphocytes % 21 % Monocytes % 7 % Eosinophils % 1 % Basophils % 0 % Neutrophils # 5.2 (1.3-7.7) k/uL Lymphocytes # 1.6 (1.0-4.8) k/uL Monocytes # 0.6 (0-1.0) k/uL Eosinophils # 0.1 (0-0.7) k/uL Basophils # 0.0 (0-0.2) k/uL PT 10.9 (9.0-12.0) sec INR 1.0 (<1.2) APTT 35.2 H (22.0-30.0) sec Sodium 140 (137-145) mmol/L Potassium 4.8 (3.5-5.1) mmol/L Chloride 106 (98-107) mmol/L Carbon Dioxide 25 (22-30) mmol/L Anion Gap 9 mmol/L BUN 20 (9-20) mg/dL Creatinine 1.34 H (0.66-1.25) mg/dL Est GFR (CKD-EPI)AfAm 61 (>60 ml/min/1.73 sqM) Est GFR (CKD-EPI)NonAf 53 (>60 ml/min/1.73 sqM) Glucose 175 H (74-99) mg/dL Calcium 9.4 (8.4-10.2) mg/dL Magnesium 1.9 (1.6-2.3) mg/dL Total Bilirubin 1.1 (0.2-1.3) mg/dL AST 30 (17-59) U/L ALT 34 (4-49) U/L Alkaline Phosphatase 90 (38-126) U/L Troponin I (0.000-0.034) ng/mL Total Protein 7.2 (6.3-8.2) g/dL Albumin 4.1 (3.5-5.0) g/dL 07/07/23 Range/Units 11:16 WBC (3.8-10.6) k/uL RBC (4.30-5.90) m/uL Hgb (13.0-17.5) gm/dL Hct (39.0-53.0) % MCV (80.0-100.0) fL MCH (25.0-35.0) pg MCHC (31.0-37.0) g/dL RDW (11.5-15.5) % Plt Count (150-450) k/uL MPV Neutrophils % % Lymphocytes % % Monocytes % % Eosinophils % % Basophils % % Neutrophils # (1.3-7.7) k/uL Lymphocytes # (1.0-4.8) k/uL Monocytes # (0-1.0) k/uL Eosinophils # (0-0.7) k/uL Basophils # (0-0.2) k/uL PT (9.0-12.0) sec INR (<1.2) APTT (22.0-30.0) sec Sodium (137-145) mmol/L Potassium (3.5-5.1) mmol/L Chloride (98-107) mmol/L Carbon Dioxide (22-30) mmol/L Anion Gap mmol/L BUN (9-20) mg/dL Creatinine (0.66-1.25) mg/dL Est GFR (CKD-EPI)AfAm (>60 ml/min/1.73 sqM) Est GFR (CKD-EPI)NonAf (>60 ml/min/1.73 sqM) Glucose (74-99) mg/dL Calcium (8.4-10.2) mg/dL Magnesium (1.6-2.3) mg/dL Total Bilirubin (0.2-1.3) mg/dL AST (17-59) U/L ALT (4-49) U/L Alkaline Phosphatase (38-126) U/L Troponin I <0.012 (0.000-0.034) ng/mL Total Protein (6.3-8.2) g/dL Albumin (3.5-5.0) g/dL Disposition Clinical Impression: Atrial flutter with rapid ventricular response Dis[facility] Condition: Stable Is patient prescribed a controlled substance at d/c from ED?: No Time of Disposition: 13:27 Decision to Admit Reason: Admit from EC Decision Date: 07/07/23 Decision Time: 13:27
[2023-07-07 11:36] LABS: Basophils % (A) 0 %; Eosinophils # (A) 0.1 k/uL (0-0.7); Eosinophils % (A) 1 %; HCT 46.9 % (39.0-53.0); Lymphocytes # (A) 1.6 k/uL (1.0-4.8); Lymphocytes % (A) 21 %; MCHC 34.1 g/dL (31.0-37.0); MCV 96.9 fL (80.0-100.0); Mean Platelet Volume 7.8; Monocytes # (A) 0.6 k/uL (0-1.0); Monocytes % (A) 7 %; Neutrophils # (A) 5.2 k/uL (1.3-7.7); Neutrophils % (A) 68 %; Platelet Count 159 k/uL (150-450); RBC 4.84 m/uL (4.30-5.90); RDW 13.6 % (11.5-15.5); WBC 7.7 k/uL (3.8-10.6)
[2023-07-07 11:46] LABS: Partial Thromboplastin Time 35.2 sec (22.0-30.0); Prothrombin Time 10.9 sec (9.0-12.0)
[2023-07-07 11:48] LABS: ALT 34 U/L (4-49); AST 30 U/L (17-59); African American GFR (CKD) 61 (>60 ml/min/1.73 sqM); Albumin 4.1 g/dL (3.5-5.0); Alkaline Phosphatase 90 U/L (38-126); Anion Gap 9 mmol/L; Blood Urea Nitrogen 20 mg/dL (9-20); Calcium 9.4 mg/dL (8.4-10.2); Carbon Dioxide 25 mmol/L (22-30); Chloride 106 mmol/L (98-107); Glucose 175 mg/dL (74-99); Magnesium 1.9 mg/dL (1.6-2.3); Non-African American GFR(CKD) 53 (>60 ml/min/1.73 sqM); Potassium 4.8 mmol/L (3.5-5.1); Sodium 140 mmol/L (137-145); Total Bilirubin 1.1 mg/dL (0.2-1.3); Total Protein 7.2 g/dL (6.3-8.2)
[2023-07-07] MEDS ORDERED: NALOXONE 0.4 MG/ML 1 ML VIAL IV PRN (13:27)
[2023-07-07] MEDS ORDERED: DILTIAZEM ORAL 30 MG TAB PO SCH (16:00)
[2023-07-07] MEDS ORDERED: DILTIAZEM ORAL 30 MG TAB PO STA (16:39)
[2023-07-07] MEDS: METOPROLOL TARTRATE 50 MG TAB PO SCH (18:04)
[2023-07-07] MEDS ORDERED: DILTIAZEM DRIP BOLUS FROM BAG 1 MG SOLN IV ONE (19:42)
[2023-07-07] MEDS: DONEPEZIL 5 MG TAB PO SCH (20:54)
[2023-07-07] MEDS: MEMANTINE 5 MG TAB PO SCH (20:54)
[2023-07-07] MEDS ORDERED: DILTIAZEM ORAL 60 MG TAB PO SCH (22:00)
[2023-07-08] MEDS: PANTOPRAZOLE 40 MG TABLET PO SCH (06:16)
[2023-07-08] MEDS: allopurinoL 300 MG TAB PO SCH (07:58)
[2023-07-08] MEDS: DABIGATRAN 150 MG CAP PO SCH (07:58)
[2023-07-08] MEDS: ATORVASTATIN 40 MG TAB PO SCH (07:58)
[2023-07-08] MEDS: METOPROLOL TARTRATE 50 MG TAB PO SCH ×2 (07:58→20:06)
[2023-07-08] MEDS: lisinopriL 5 MG TAB PO SCH (07:58)
[2023-07-08 08:20] LABS: Basophils % (A) 1 %; Eosinophils # (A) 0.1 k/uL (0-0.7); Eosinophils % (A) 2 %; HCT 44.9 % (39.0-53.0); HGB 15.2 gm/dL (13.0-17.5); Lymphocytes # (A) 1.8 k/uL (1.0-4.8); Lymphocytes % (A) 26 %; MCH 32.8 pg (25.0-35.0); MCHC 33.9 g/dL (31.0-37.0); MCV 96.7 fL (80.0-100.0); Mean Platelet Volume 8.1; Monocytes # (A) 0.6 k/uL (0-1.0); Monocytes % (A) 8 %; Neutrophils # (A) 4.3 k/uL (1.3-7.7); Neutrophils % (A) 62 %; Platelet Count 163 k/uL (150-450); RBC 4.64 m/uL (4.30-5.90); RDW 13.7 % (11.5-15.5); WBC 6.9 k/uL (3.8-10.6)
[2023-07-08 08:49] LABS: African American GFR (CKD) 74 (>60 ml/min/1.73 sqM); Anion Gap 6 mmol/L; Blood Urea Nitrogen 19 mg/dL (9-20); Calcium 9.1 mg/dL (8.4-10.2); Carbon Dioxide 24 mmol/L (22-30); Chloride 107 mmol/L (98-107); Glucose 151 mg/dL (74-99); Non-African American GFR(CKD) 64 (>60 ml/min/1.73 sqM); Potassium 4.7 mmol/L (3.5-5.1); Sodium 137 mmol/L (137-145)
[2023-07-08] MEDS ORDERED: METOPROLOL TARTRATE 50 MG TAB PO STA (10:43)
[2023-07-08] MEDS: LINAGLIPTIN 5 MG TABLET PO SCH (10:56)
[2023-07-08] MEDS: PIOGLITAZONE 15 MG TAB PO SCH (10:56)
--- NOTE | 2023-07-08 11:05 | P.CRDCN ---
History of Present Illness Consult date: 07/08/23 Consult reason: atrial fibrillation History of present illness: The patient is a 73-year-old male who follows in the office with Dr. Calvo. He previously underwent ablation for both atrial flutter and atrial fibrillation in the past. He presented to the hospital last week and was admitted for breakthrough episode of A. fib with RVR, which had not occurred since his last ablation. He had left AGAINST MEDICAL ADVICE as he had family in town for vacation. He recently was golfing when he had an increase in shortness of breath as well as fatigue. He noted his heart rate was elevated and therefore presented to the emergency room. DIAGNOSTICS: EKG shows atrial flutter with RVR at 140 bpm Lab data: CBC 7.7, hemoglobin 16.0, hematocrit 46.9, platelet 159, sodium 140, potassium 4.8, BUN 20, creatinine 1.34, magnesium 1.9, AST 30, ALT 34, troponin negative 1 Echocardiogram 07/01/2023 shows preserved LV function with severe RV and RA dila tation REVIEW OF SYSTEMS: No fever or chills. No cough or expectoration. No diaphoresis. Patient denies headache, dizziness, blurred vision, double vision. Patient denies any stomach discomfort. No nausea, vomiting. No hematochezia. No hematemesis. Denies any black stools or blood in his stools. Denies dysuria or hematuria. No muscle weakness or numbness. No chest pain or chest pressure. No palpitations PHYSICAL EXAMINATION: This is a 73-year-old male in no apparent distress at the time of my examination. HEENT: Head is atraumatic, normocephalic. Pupils are equal, round. Sclerae anicteric. Conjunctivae are clear. Mucous membranes of the mouth are moist. Neck is supple. There is no jugular venous distention. No carotid bruit is heard. CHEST EXAMINATION: Lungs are clear to auscultation. No chest wall tenderness is noted on palpation or with deep breathing. HEART EXAMINATION: Irregular rate and rhythm. S1, S2 heard. No murmurs, gallops or rub. ABDOMEN: Soft, nontender. Bowel sounds are heard. No organomegaly noted. EXTREMITIES: 2+ peripheral pulses with no evidence of peripheral edema and no calf tenderness noted. NEUROLOGIC EXAMINATION: Patient is awake, alert and oriented x3. FINAL ASSESSMENT AND PLAN: Atrial fibrillation/atrial flutter with RVR Status post atrial flutter ablation in 2019, followed by pulmonary vein isolation in 2020 Hypertension Diabetes PLAN: Check TSH, hemoglobin A1c, and lipid profile Increase metoprolol to 150 mg twice daily Permissible nighttime bradycardia in the 40s Plan for outpatient EP study and ablation with Dr. Agrawal I am dictating on behalf of Dr Adriel Agrawal's history/physical and assessment/plan. 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, cataracts History of Any Multi-Drug Resistant Organisms: None Reported Past Surgical History: Cardiac Ablation, Heart Catheterization, Orthopedic Surgery, Tonsillectomy Additional Past Surgical History / Comment(s): heart cath no stent 07/09/2019, melanoma removed from back, arthroscopy rt knee, RK eye surgery, Past Anesthesia/Blood Transfusion Reactions: No Reported Reaction Past Psychological History: Anxiety Additional Psychological History / Comment(s): denies any hx Smoking Status: Never smoker Past Alcohol Use History: Occasional Additional Past Alcohol Use History / Comment(s): Past hx occ cigar use, has smoked cigars for 2 yrs, quit smoking cigarettes 32 yrs ago, smoked cigarettes for 12 yrs Past Drug Use History: None Reported - Past Family History Mother Family Medical History: Cancer Additional Family Medical History / Comment(s): Pancreatic CA Father Additional Family Medical History / Comment(s): suicide d/t [place] Medications and Allergies Home Medications Medication Instructions Recorded Confirmed Type Omeprazole 40 mg PO DAILY 07/09/19 07/07/23 History Pioglitazone [Actos] 15 mg PO DAILY 07/09/19 07/07/23 History allopurinoL [Zyloprim] 300 mg PO DAILY 07/09/19 07/07/23 History sitaGLIPtin [Januvia] 100 mg PO DAILY 07/09/19 07/07/23 History Atorvastatin [Lipitor] 40 mg PO DAILY 08/21/19 07/07/23 History Dabigatran Etexilate Mesylate 150 mg PO DAILY 06/30/23 07/07/23 History [Dabigatran Etexilate] Metoprolol Tartrate [Lopressor] 100 mg PO BID 06/30/23 07/07/23 History lisinopriL [Zestril] 5 mg PO DAILY 06/30/23 07/07/23 History Diltiazem Oral [Cardizem*] 30 mg PO TID 30 Days #90 tab 07/01/23 07/07/23 Rx Donepezil [Aricept] 5 mg PO HS 07/07/23 07/07/23 History Memantine [Namenda] 5 mg PO HS 07/07/23 07/07/23 History Allergies Allergy/AdvReac Type Severity Reaction Status Date / Time cottonwood tree Allergy congestion Uncoded 07/07/23 13:28 Physical Exam Vitals: Vital Signs Temp Pulse Pulse Resp BP BP BP 07/08/23 08:00 68 15 07/08/23 07:00 97.8 F 68 15 131/91 07/08/23 02:00 97.9 F 90 16 126/83 07/08/23 01:15 67 07/07/23 19:14 98.1 F 140 H 17 135/96 07/07/23 17:57 140 H 16 145/107 07/07/23 15:50 98.1 F 414 H 15 141/116 07/07/23 15:35 138 H 13 152/112 07/07/23 15:11 71 18 135/83 07/07/23 12:26 77 18 123/83 07/07/23 11:13 140 H 18 153/111 07/07/23 11:00 98.2 F 139 H 22 138/85 Pulse Ox 07/08/23 08:00 07/08/23 07:00 99 07/08/23 02:00 98 07/08/23 01:15 07/07/23 19:14 98 07/07/23 17:57 97 07/07/23 15:50 07/07/23 15:35 07/07/23 15:11 97 07/07/23 12:26 96 07/07/23 11:13 100 07/07/23 11:00 98 Intake and Output 07/07/23 07/08/23 07/08/23 22:59 06:59 14:59 Other: Voiding Method Toilet Toilet # Voids 2 2 Weight 98.883 kg Results 07/08/23 07:47 07/08/23 07:47 Cardiac Enzymes 07/07/23 07/07/23 Range/Units 11:16 11:16 AST 30 (17-59) U/L Troponin I <0.012 (0.000-0.034) ng/mL Coagulation 07/07/23 Range/Units 11:16 PT 10.9 (9.0-12.0) sec APTT 35.2 H (22.0-30.0) sec CBC 07/07/23 07/08/23 Range/Units 11:16 07:47 WBC 7.7 6.9 (3.8-10.6) k/uL RBC 4.84 4.64 (4.30-5.90) m/uL Hgb 16.0 15.2 (13.0-17.5) gm/dL Hct 46.9 44.9 (39.0-53.0) % Plt Count 159 163 (150-450) k/uL Comprehensive Metabolic Panel 07/07/23 07/08/23 Range/Units 11:16 07:47 Sodium 140 137 (137-145) mmol/L Potassium 4.8 4.7 (3.5-5.1) mmol/L Chloride 106 107 (98-107) mmol/L Carbon Dioxide 25 24 (22-30) mmol/L BUN 20 19 (9-20) mg/dL Creatinine 1.34 H 1.14 (0.66-1.25) mg/dL Glucose 175 H 151 H (74-99) mg/dL Calcium 9.4 9.1 (8.4-10.2) mg/dL AST 30 (17-59) U/L ALT 34 (4-49) U/L Alkaline Phosphatase 90 (38-126) U/L Total Protein 7.2 (6.3-8.2) g/dL Albumin 4.1 (3.5-5.0) g/dL Current Medications Generic Name Dose Route Start Last Admin Trade Name Freq PRN Reason Stop Dose Admin Allopurinol 300 mg 07/08/23 09:00 07/08/23 07:58 Allopurinol 300 Mg Tab PO 300 mg DAILY WILMER Administration Atorvastatin Calcium 40 mg 07/08/23 09:00 07/08/23 07:58 Atorvastatin 40 Mg Tab PO 40 mg DAILY WILMER Administration Dabigatran 150 mg 07/08/23 09:00 07/08/23 07:58 Dabigatran 150 Mg Cap PO 150 mg DAILY WILMER Administration Protocol Donepezil HCl 5 mg 07/07/23 21:00 07/07/23 20:54 Donepezil 5 Mg Tab PO 5 mg HS WILMER Administration Linagliptin 5 mg 07/08/23 09:00 07/08/23 10:56 Linagliptin 5 Mg Tablet PO 5 mg DAILY WILMER Administration Lisinopril 5 mg 07/08/23 09:00 07/08/23 07:58 Lisinopril 5 Mg Tab PO 5 mg DAILY WILMER Administration Memantine 5 mg 07/07/23 21:00 07/07/23 20:54 Memantine 5 Mg Tab PO 5 mg HS WILMER Administration Metoprolol Tartrate 150 mg 07/08/23 21:00 Metoprolol Tartrate 50 Mg Tab PO BID WILMER Naloxone HCl 0.2 mg 07/07/23 13:27 Naloxone 0.4 Mg/Ml 1 Ml Vial IV Q2M PRN Opioid Reversal Pantoprazole Sodium 40 mg 07/08/23 07:30 07/08/23 06:16 Pantoprazole 40 Mg Tablet PO 40 mg [id number] WILMER Administration Pioglitazone HCl 15 mg 07/08/23 09:00 07/08/23 10:56 Pioglitazone 15 Mg Tab PO 15 mg DAILY WILMER Administration Intake and Output 07/07/23 07/08/23 07/08/23 22:59 06:59 14:59 Other: Voiding Method Toilet Toilet # Voids 2 2 Weight 98.883 kg 07/08/23 07:47 07/08/23 07:47
[2023-07-08] MEDS: DILTIAZEM 125 MG in SODIUM CHLORIDE 0.9% 100 ML IV SCH (12:15)
[2023-07-08] MEDS ORDERED: DEXTROSE 50% SYRINGE 50 ML IVP PRN ×2 (13:23)
[2023-07-08] MEDS: INSULIN ASPART (NovoLOG) 100 UNIT/ML VIAL SQ SCH ×2 (15:10→17:25)
--- NOTE | 2023-07-08 15:51 | P.HPIM ---
History of Present Illness H&P Date: 07/08/23 Chief Complaint: Increased heart rate This is a pleasant 73-year-old patient follows with Dr. Shell. Patient was here in June 30. With uncontrolled atrial fibrillation. Was then seen by Dr. Giles Cavanaugh., With plan for outpatient cardioversion. Patient now presents with heart rate up to the 140s. Denies any dizziness lightheadedness palpitation or chest pressure. It was picked by his watch. Patient is accompanied by his and daughter. 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 . 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 Short history of smoking in the past. Physical examination: VITAL SIGNS: 98.2, 139, 20, 1 38 x 85, 98% room air upon presentation GENERAL: BMI 24.6, reclining in bed, comfortable EYES: Pupils equal. Conjunctiva normal. HEENT: External appearance of nose and ears normal, oral cavity grossly normal. NECK: JVD not raised; masses not palpable. HEART: Heart sounds irregular; no edema. LUNGS: Respiratory rate normal; clear to auscultation. ABDOMEN: Soft, nontender, liver spleen not palpable, no masses palpable. PSYCH: Alert and oriented x3; mood and affect normal. MUSCULOSKELETAL:No Clubbing/cyanosis;muscles-grossly intact. OA NEUROLOGICAL: Cranial nerves grossly intact; no facial asymmetry, power and sensation grossly intact. LYMPHATICS: No lymph nodes palpable in the axilla and neck INVESTIGATIONS, reviewed in the clinical context: White count 6.9 hemoglobin 15.2 platelets 163 potassium 4.7 creatinine 1.14 TSH 1.080 EKG tracing personally reviewed by me-atrial flutter with variable AV block. 2-D echo [07/01/2023]: EF 50% severe right ventricle dilatation. Severe right atrial dilatation. Assessment plan: -Permanent atrial flutter- fibrillation now presented with a rapid ventricular rate. ER physician spoke to Dr. Adriel Steiner patient was to be kept on oral Cardizem. Presentation. Today patient was switched over to Lopressor 150 mg twice a day and Cardizem discontinued. -GERD Omeprazole -Diabetes mellitus type 2 and oral hypoglycemic Actos, Januvia -Essential hypertension Zestril, Lopressor -Chronic gout Allopurinol -Hyperlipidemia Lipitor -Mild cognitive impairment Aricept, Namenda -Full code Discussed with patient and family the bedside. 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, cataracts History of Any Multi-Drug Resistant Organisms: None Reported Past Surgical History: Cardiac Ablation, Heart Catheterization, Orthopedic Surgery, Tonsillectomy Additional Past Surgical History / Comment(s): heart cath no stent 07/09/2019, melanoma removed from back, arthroscopy rt knee, RK eye surgery, Past Anesthesia/Blood Transfusion Reactions: No Reported Reaction Past Psychological History: Anxiety Additional Psychological History / Comment(s): denies any hx Smoking Status: Never smoker Past Alcohol Use History: Occasional Additional Past Alcohol Use History / Comment(s): Past hx occ cigar use, has smoked cigars for 2 yrs, quit smoking cigarettes 32 yrs ago, smoked cigarettes for 12 yrs Past Drug Use History: None Reported - Past Family History Mother Family Medical History: Cancer Additional Family Medical History / Comment(s): Pancreatic CA Father Additional Family Medical History / Comment(s): suicide d/t CA Medications and Allergies Home Medications Medication Instructions Recorded Confirmed Type Omeprazole 40 mg PO DAILY 07/09/19 07/07/23 History Pioglitazone [Actos] 15 mg PO DAILY 07/09/19 07/07/23 History allopurinoL [Zyloprim] 300 mg PO DAILY 07/09/19 07/07/23 History sitaGLIPtin [Januvia] 100 mg PO DAILY 07/09/19 07/07/23 History Atorvastatin [Lipitor] 40 mg PO DAILY 08/21/19 07/07/23 History Dabigatran Etexilate Mesylate 150 mg PO DAILY 06/30/23 07/07/23 History [Dabigatran Etexilate] Metoprolol Tartrate [Lopressor] 100 mg PO BID 06/30/23 07/07/23 History lisinopriL [Zestril] 5 mg PO DAILY 06/30/23 07/07/23 History Diltiazem Oral [Cardizem*] 30 mg PO TID 30 Days #90 tab 07/01/23 07/07/23 Rx Donepezil [Aricept] 5 mg PO HS 07/07/23 07/07/23 History Memantine [Namenda] 5 mg PO HS 07/07/23 07/07/23 History Allergies Allergy/AdvReac Type Severity Reaction Status Date / Time cottonwood tree Allergy congestion Uncoded 07/07/23 13:28 Physical Exam Vitals: Vital Signs Temp Pulse Pulse Resp BP BP BP 07/08/23 08:00 68 15 07/08/23 07:00 97.8 F 68 15 131/91 07/08/23 02:00 97.9 F 90 16 126/83 07/08/23 01:15 67 07/07/23 19:14 98.1 F 140 H 17 135/96 07/07/23 17:57 140 H 16 145/107 07/07/23 15:50 98.1 F 414 H 15 141/116 07/07/23 15:35 138 H 13 152/112 07/07/23 15:11 71 18 135/83 07/07/23 12:26 77 18 123/83 07/07/23 11:13 140 H 18 153/111 07/07/23 11:00 98.2 F 139 H 22 138/85 Pulse Ox 07/08/23 08:00 07/08/23 07:00 99 07/08/23 02:00 98 07/08/23 01:15 07/07/23 19:14 98 07/07/23 17:57 97 07/07/23 15:50 07/07/23 15:35 07/07/23 15:11 97 07/07/23 12:26 96 07/07/23 11:13 100 07/07/23 11:00 98 Intake and Output 07/07/23 07/08/23 07/08/23 22:59 06:59 14:59 Other: Voiding Method Toilet Toilet # Voids 2 2 Weight 98.883 kg Results CBC & Chem 7: 07/08/23 07:47 07/08/23 07:47 Labs: Abnormal Lab Results - Last 24 Hours (Table) 07/07/23 07/07/23 07/08/23 Range/Units 11:16 11:16 07:47 APTT 35.2 H (22.0-30.0) sec Creatinine 1.34 H (0.66-1.25) mg/dL Glucose 175 H 151 H (74-99) mg/dL Thrombosis Risk Factor Assmnt - Choose All That Apply Any of the Below Risk Factors Present?: No Other Risk Factors: Yes Each Risk Factor Represents 2 Points: Age 61-74 years Other congenital or acquired thrombophilia - If yes, enter type in comment: No Thrombosis Risk Factor Assessment Total Risk Factor Score: 2 Thrombosis Risk Factor Assessment Level: Low Risk
[2023-07-08 17:23] LABS: Glucose,Whole Blood 114 mg/dL (70-110)
[2023-07-08] MEDS: MEMANTINE 5 MG TAB PO SCH (20:07)
[2023-07-08] MEDS: DONEPEZIL 5 MG TAB PO SCH (20:07)
[2023-07-08 20:27] LABS: Glucose,Whole Blood 130 mg/dL (70-110)
[2023-07-09 06:01] LABS: Glucose,Whole Blood 132 mg/dL (70-110)
[2023-07-09] MEDS: INSULIN ASPART (NovoLOG) 100 UNIT/ML VIAL SQ SCH (06:03)
[2023-07-09] MEDS: PANTOPRAZOLE 40 MG TABLET PO SCH (06:14)
[2023-07-09] MEDS: PIOGLITAZONE 15 MG TAB PO SCH (07:46)
[2023-07-09] MEDS: DABIGATRAN 150 MG CAP PO SCH (07:46)
[2023-07-09] MEDS: allopurinoL 300 MG TAB PO SCH (07:46)
[2023-07-09] MEDS: lisinopriL 5 MG TAB PO SCH (07:46)
[2023-07-09] MEDS: ATORVASTATIN 40 MG TAB PO SCH (07:46)
[2023-07-09] MEDS: METOPROLOL TARTRATE 50 MG TAB PO SCH (07:46)
[2023-07-09] MEDS: LINAGLIPTIN 5 MG TABLET PO SCH (07:47)
[2023-07-09 07:53] VITALS: BP 127/81; PULSE 90; RESP 13; TEMP 98
[2023-07-09 07:56] LABS: Chol/HDL Ratio 2.41 Ratio; LDL Cholesterol,Calculated 40.6 mg/dL (0.0-131.0)
--- NOTE | 2023-07-09 15:12 | P.DS ---
Providers Date of admission: 07/07/23 13:27 Expected date of discharge: 07/09/23 Attending physician: Sam Jules Consults: 07/07/23 13:27 Consult Physician Urgent Consulting Provider: [facility] Consult Reason/Comments: afib with rvr Do you want consulting provider notified?: Already Contacted Primary care physician: [facility] Course: Chief Complaint: Increased heart rate This is a pleasant 73-year-old patient follows with Dr. Shell. Patient was here in June 30. With uncontrolled atrial fibrillation. Was then seen by Dr. Giles Cavanaugh., With plan for outpatient cardioversion. Patient now presents with heart rate up to the 140s. Denies any dizziness lightheadedness palpitation or chest pressure. It was picked by his watch. Patient is accompanied by his and daughter. 07/09/2023: Seen by Dr. Adriel Steiner. Thirdly possible atrial tachycardia with RVR. For outpatient EP study and mapping and ablation. Continue with metoprolol 150 mg twice daily. Cardizem has been discontinued. Patient will be contacted by Dr. Adriel Steiner's office. Discussed with patient and at the bedside. 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 . 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 Short history of smoking in the past. Physical examination: VITAL SIGNS: 98, 90, 13, 127/81, 96% room air GENERAL: Operative bed, comfortable EYES: Pupils equal. Conjunctiva normal. HEENT: External appearance of nose and ears normal, oral cavity grossly normal. NECK: JVD not raised; masses not palpable. HEART: Heart sounds irregular; no edema. LUNGS: Respiratory rate normal; clear to auscultation. ABDOMEN: Soft, nontender, liver spleen not palpable, no masses palpable. PSYCH: Alert and oriented x3; mood and affect normal. MUSCULOSKELETAL:No Clubbing/cyanosis;muscles-grossly intact. OA INVESTIGATIONS, reviewed in the clinical context: White count 6.9 hemoglobin 15.2 platelets 163 potassium 4.7 creatinine 1.14 TSH 1.080 EKG tracing personally reviewed by me-atrial flutter with variable AV block. 2-D echo [07/01/2023]: EF 50% severe right ventricle dilatation. Severe right atrial dilatation. Assessment plan: -Atrial tachycardia with the rapid ventricular rate. ER physician spoke to Dr. Adriel Steiner patient was to be kept on oral Cardizem. Presentation. Today patient was switched over to Lopressor 150 mg twice a day and Cardizem discontinued. -Prior history of atrial flutter ablation in 2019. -GERD Omeprazole -Diabetes mellitus type 2 and oral hypoglycemic Actos, Januvia -Essential hypertension Zestril, Lopressor -Chronic gout Allopurinol -Hyperlipidemia Lipitor -Mild cognitive impairment Aricept, Namenda -Full code Disposition: Home Plan - Discharge Summary Discharge Rx Participant: No New Discharge Prescriptions: Continue Pioglitazone [Actos] 15 mg PO DAILY sitaGLIPtin [Januvia] 100 mg PO DAILY Omeprazole 40 mg PO DAILY allopurinoL [Zyloprim] 300 mg PO DAILY Atorvastatin [Lipitor] 40 mg PO DAILY lisinopriL [Zestril] 5 mg PO DAILY Dabigatran Etexilate Mesylate [Dabigatran Etexilate] 150 mg PO DAILY Memantine [Namenda] 5 mg PO HS Donepezil [Aricept] 5 mg PO HS Changed Metoprolol Tartrate [Lopressor] 150 mg PO BID #0 Discontinued Diltiazem Oral [Cardizem*] 30 mg PO TID 30 Days #90 tab Discharge Medication List Omeprazole 40 mg PO DAILY 07/09/19 [History] Pioglitazone [Actos] 15 mg PO DAILY 07/09/19 [History] allopurinoL [Zyloprim] 300 mg PO DAILY 07/09/19 [History] sitaGLIPtin [Januvia] 100 mg PO DAILY 07/09/19 [History] Atorvastatin [Lipitor] 40 mg PO DAILY 08/21/19 [History] Dabigatran Etexilate Mesylate [Dabigatran Etexilate] 150 mg PO DAILY 06/30/23 [History] lisinopriL [Zestril] 5 mg PO DAILY 06/30/23 [History] Donepezil [Aricept] 5 mg PO HS 07/07/23 [History] Memantine [Namenda] 5 mg PO HS 07/07/23 [History] Metoprolol Tartrate [Lopressor] 150 mg PO BID #0 07/09/23 [Rx] Follow up Appointment(s)/Referral(s): Adriel Agrawal MD [STAFF PHYSICIAN] - 2 Weeks Evin Shell MD [Primary Care Provider] - 1-2 days Discharge Disposition: HOME SELF-CARE
== END 2023-07-09 11:40 | disposition home or self-care (01) ==
LOC: EC 10:57 → 6NMEDSUR 13:27
PROVIDERS: ADMIT Hospitalist; ATTEND Hospitalist
DX: I48.92 Unspecified atrial flutter (principal); I47.1 Supraventricular tachycardia; I48.0 Paroxysmal atrial fibrillation; E11.9 Type 2 diabetes mellitus without complications; K21.9 Gastro-esophageal reflux disease without esophagitis; E78.5 Hyperlipidemia, unspecified; F41.9 Anxiety disorder, unspecified; I10 Essential (primary) hypertension; M1A.9XX0 Chronic gout, unspecified, without tophus (tophi); G31.84 Mild cognitive impairment of uncertain or unknown etiology; Z85.820 Personal history of malignant melanoma of skin; Z86.73 Personal history of transient ischemic attack (TIA), and cerebral infarction without residual deficits; Z87.891 Personal history of nicotine dependence; Z95.5 Presence of coronary angioplasty implant and graft; Z79.84 Long term (current) use of oral hypoglycemic drugs; Z79.899 Other long term (current) drug therapy
CPT/HCPCS: 99285; 36415; 93005; 80053; 80048; 80061; 84443; 83735; 84484; 85025 ×2; 85610; 85730; 83036; G0378 ×3

== ENCOUNTER 2023-09-25 10:59 | Day surgery (SDC) | payer MEDICARE ==
[~2023-09-25 10:59] MED LIST changes: -DEXAMETHASONE SOD PHOSPHATE 4 MG/ML 1 ML VIAL IV ONE; +LIDOCAINE 1% (10MG/ML) FOR IV START INTRADERMA PRN; -ONDANSETRON 4 MG/2 ML VIAL IVP ONE; +ONDANSETRON 4 MG/2 ML VIAL IVP PRN; +fentaNYL (PF) 50 MCG/ML 2 ML AMP IV PRN
[2023-09-25 11:29] LABS: Glucose,Whole Blood 130 mg/dL (70-110)
[2023-09-25 11:36] LABS: Basophils % (A) 0 %; Eosinophils # (A) 0.1 k/uL (0-0.7); Eosinophils % (A) 2 %; HCT 50.9 % (39.0-53.0); HGB 16.9 gm/dL (13.0-17.5); Lymphocytes # (A) 2.5 k/uL (1.0-4.8); Lymphocytes % (A) 28 %; MCH 32.3 pg (25.0-35.0); MCHC 33.2 g/dL (31.0-37.0); MCV 97.3 fL (80.0-100.0); Mean Platelet Volume 8.2; Monocytes # (A) 0.7 k/uL (0-1.0); Monocytes % (A) 8 %; Neutrophils # (A) 5.2 k/uL (1.3-7.7); Neutrophils % (A) 60 %; Platelet Count 178 k/uL (150-450); RBC 5.23 m/uL (4.30-5.90); RDW 13.4 % (11.5-15.5); WBC 8.8 k/uL (3.8-10.6)
[2023-09-25 11:53] LABS: African American GFR (CKD) 60 (>60 ml/min/1.73 sqM); Anion Gap 10 mmol/L; Blood Urea Nitrogen 25 mg/dL (9-20); Calcium 9.6 mg/dL (8.4-10.2); Carbon Dioxide 26 mmol/L (22-30); Chloride 103 mmol/L (98-107); Glucose 149 mg/dL (74-99); Non-African American GFR(CKD) 52 (>60 ml/min/1.73 sqM); Potassium 4.5 mmol/L (3.5-5.1); Sodium 139 mmol/L (137-145)
[2023-09-25] MEDS ORDERED: DABIGATRAN 150 MG CAP PO STA (12:17)
[2023-09-25] MEDS ORDERED: PROPOFOL 10 MG/ML 20 ML VIAL IV ONE (13:23)
[2023-09-25] MEDS ORDERED: fentaNYL (PF) 50 MCG/ML 2 ML AMP ONE (13:23)
[2023-09-25] MEDS ORDERED: SUCCINYLCHOLINE CHLORIDE 200 MG/10 ML VIAL IV ONE (13:23)
[2023-09-25] MEDS ORDERED: HEPARIN SODIUM,PORCINE 10,000 UNIT/ML 1 ML VIAL ONE (13:23)
[2023-09-25] MEDS ORDERED: PHENYLEPHRINE-0.9% NACL SYG 1,000 MCG/10 ML SYRINGE ONE (13:23)
[2023-09-25] MEDS ORDERED: FUROSEMIDE 10 MG/ML 2 ML VIAL ONE (13:23)
[2023-09-25] MEDS ORDERED: HYDROmorphone (PF) 1 MG/ML ONE (13:23)
[2023-09-25] MEDS ORDERED: MIDAZOLAM 2 MG/2 ML VIAL ONE (13:23)
[2023-09-25] MEDS ORDERED: LIDOCAINE 1% INJ 10MG/ML (20 ML MDV) ONE (13:40)
--- NOTE | 2023-09-25 13:46 | P.HPCAR ---
History of Present Illness This is Dr. Agrawal dictating an H/P on this patient The patient was interviewed and examined IMPRESSION / ASSESSMENT: Persistent atrial tachycardia with poorly controlled ventricular rate especially with exertion History of atrial fibrillation status post ablation History of atrial flutter status post ablation in the past Type 2 diabetes Hypertension PLAN: Diagnostic EP study and mapping and efficacy ablation of the atrial tachycardia HPI Patient continues to complain of shortness of breath on exertion His EKG shows an organized atrial tachycardia with poorly controlled ventricular rate He also has been complaining of heartburn especially since he started Pradaxa This improved after he took something [id number] given by his pharmacist He denies any fever chills cough expectoration or any chest pain or heartburn at this time ROS: No fever chills or rigors, no cough, phlegm or expectoration, no nausea, vomiting or diarrhea, no hematuria, dysuria, no musculoskeletal complaints, no strokes or seizures, no skin lesions. EXAMINATION: Pulse rate 70s to 80s normal respirations Blood pressure 140 70 100 mmHg afebrile Breath sounds are equal bilaterally no rhonchi no crackles Heart sounds are irregular no murmurs Abdomen soft No JVD No lower extremity edema REVIEW OF LABS, ECG & MEDICAL DATA Hemoglobin 16.9, white count normal 8.8 thousand Platelet count 178,000 Normal electrolytes BUN 25 and creatinine 1.36 Physical Exam Vitals: Vital Signs Temp Pulse Resp BP Pulse Ox 09/25/23 11:35 97.6 F 71 18 147/108 97 Intake and Output 09/24/23 09/25/23 09/25/23 22:59 06:59 14:59 Intake Total 100 Balance 100 Intake: IV 100 Other: Weight 99.5 kg Past Medical History Past Medical History: Atrial Fibrillation, Atrial Flutter, Cancer, CVA/TIA, Diabetes Mellitus, GERD/Reflux, Hyperlipidemia, Hypertension, Memory Impairment Additional Past Medical History / Comment(s): SEE DR. AGRAWAL'S H&P. hx N IDDM type II, melanoma skin cancer, hx kidney stones, gout, CVA 06/2018 w/ change in short-term memory History of Any Multi-Drug Resistant Organisms: None Reported Past Surgical History: Cardiac Ablation, Heart Catheterization, Orthopedic Surgery, Tonsillectomy Additional Past Surgical History / Comment(s): heart cath no stent 07/09/2019, melanoma removed from back, arthroscopy rt knee, RK eye surgery Past Anesthesia/Blood Transfusion Reactions: No Reported Reaction Smoking Status: Former smoker - Past Family History Mother Family Medical History: Cancer Additional Family Medical History / Comment(s): Pancreatic CA Father Additional Family Medical History / Comment(s): suicide d/t CA Physical Examination Vital Signs Temp Pulse Resp BP Pulse Ox 09/25/23 11:35 97.6 F 71 18 147/108 97 Intake and Output 09/24/23 09/25/23 09/25/23 22:59 06:59 14:59 Intake Total 100 Balance 100 Intake: IV 100 Other: Weight 99.5 kg Results 09/25/23 11:20 09/25/23 11:20 CBC 09/25/23 Range/Units 11:20 WBC 8.8 (3.8-10.6) k/uL RBC 5.23 (4.30-5.90) m/uL Hgb 16.9 (13.0-17.5) gm/dL Hct 50.9 (39.0-53.0) % Plt Count 178 (150-450) k/uL Comprehensive Metabolic Panel 09/25/23 Range/Units 11:20 Sodium 139 (137-145) mmol/L Potassium 4.5 (3.5-5.1) mmol/L Chloride 103 (98-107) mmol/L Carbon Dioxide 26 (22-30) mmol/L BUN 25 H (9-20) mg/dL Creatinine 1.36 H (0.66-1.25) mg/dL Glucose 149 H (74-99) mg/dL Calcium 9.6 (8.4-10.2) mg/dL Current Medications Generic Name Dose Route Start Last Admin Trade Name Freq PRN Reason Stop Dose Admin Fentanyl Citrate 50 mcg 09/25/23 05:59 Fentanyl (Pf) 50 Mcg/Ml 2 Ml Amp IV 09/26/23 06:00 Q3M PRN Phase I - Pain Control Sodium Chloride 1,000 mls @ 20 mls/hr 09/25/23 05:59 09/25/23 11:36 Saline 0.9% IV 10/25/23 06:00 100 mls .Q24H WILMER Administration Lactated Ringer's 1,000 mls @ 20 mls/hr 09/25/23 05:59 Lactated Ringers IV 10/25/23 06:00 .Q24H WILMER Lidocaine HCl 0.1 ml 09/25/23 05:59 Lidocaine 1% (10mg/Ml) For Iv Start INTRADERMA 10/25/23 06:00 PER PROTOCOL PRN IV Start Ondansetron HCl 4 mg 09/25/23 05:59 Ondansetron 4 Mg/2 Ml Vial IVP 09/26/23 06:00 ONCE PRN Phase 1 or 2 - Nausea/Vomiting Intake and Output 09/24/23 09/25/23 09/25/23 22:59 06:59 14:59 Intake Total 100 Balance 100 Intake: IV 100 Other: Weight 99.5 kg Patient Weight 09/26/23 06:59 Weight 99.5 kg 09/25/23 11:20 09/25/23 11:20
[2023-09-25] MEDS ORDERED: HEPARIN SODIUM (1,000 UNIT/ML) 1,000 UNIT in SODIUM CHLORIDE 0.9% 1,000 ML IRRIGATION ONE ×2 (13:58→18:43)
[2023-09-25] MEDS ORDERED: HEPARIN SOD,PORK IN 0.45% NACL 25,000 UNIT in 0.45% NACL 1 250ML.BAG IV ONE (13:58)
[2023-09-25] MEDS ORDERED: LIDOCAINE 1% INJ 10MG/ML (20 ML MDV) SQ ONE (14:04)
[2023-09-25] MEDS ORDERED: LACTATED RINGERS 1,000 ML IV ONE (15:40)
[2023-09-25] MEDS ORDERED: IOPAMIDOL-370 100ML BTL INJ ONE (17:33)
[2023-09-25] MEDS ORDERED: ACETAMINOPHEN TAB 325 MG TAB PO PRN (19:08)
[2023-09-25] MEDS ORDERED: ACETAMINOPHEN IV (For NPO) 1,000 MG in EMPTY BAG 1 BAG IVPB ONE (19:08)
[2023-09-25 19:20] LABS: Glucose,Whole Blood 114 mg/dL (70-110)
--- NOTE | 2023-09-25 19:26 | P.EPPROC ---
- EP Procedure Note Electrophysiology Procedure Note: Diagnosis Persistent atrial fibrillation/atrial tachycardia following atrial flutter ablation and PVI with a septal ablation Symptomatic Final diagnosis/procedures Typical atrial flutter ablation Left atrial roof ablation, initially with anterior roof RF followed by posterior roof cryoablation, resulting in termination of the tachycardia Mitral isthmus ablation Linear ablation anterior wall of the left atrium from the right superior vein to the mitral annulus Residual mitral reentry that did not terminate with endocardial ablation Electrical cardioversion performed to sinus rhythm Details Patient was brought to the EP lab in a fasting state. Written informed consent was obtained prior to the procedure. General anesthesia provided Venous sheaths placed in the right and left femoral veins The coronary sinus activation indicated a left-sided activation. Therefore intracardiac echo was performed Physical pericardium noted without precordial effusion Left right transseptal catheterization performed right atrial pressure 12/6/10 LA pressure 24/0/15 The pulmonary veins were completely isolated from prior ablation. The septal ablation performed previously was also intact and the area was completely quiescent The previous atrial flutter line had developed along the tricuspid end Multiple sequential maps of the right atrium and left atrium performed with activation mapping and voltage mapping through the procedure Patient had multiple simultaneous tachycardias that were mapped and ablated sequentially Redo typical atrial flutter ablation performed successfully Anterior left atrial roof RF ablation followed by cryoablation of the posterior LA roof. This resulted in termination of the tachycardia and change in the activation sequence and a cycle length of the tachycardias Ablation of the anterior LA wall from the right superior pulmonary vein to the mitral annulus, resulting in cycle length prolongation and a subtle change in activation pattern Ablation of the mitral isthmus. There was prolongation of the cycle length but tachycardia continued. Finally tachycardia cycle length 290 ms, concentric activation At the end of the procedure repeat mapping was performed today confirmed absence of any focal atrial tachycardias in the right atrium as well as the left atrium The only evident tachycardia was mitral reentry despite successful endocardial ablation Likely related to a very thick mitral isthmus Electrical cardioversion performed successfully sinus rhythm Post ablation NM interval 116 ms, QRS 180 ms and QT interval 451 ms Patient tolerated the procedure well without any acute complications Plan Continue either ELIQUIS 5 g twice daily apraxia 150 mg twice daily Reduce metoprolol dose Stop diltiazem
--- NOTE | 2023-09-25 19:27 | P.PCN ---
Preoperative Diagnosis: Long procedure This was a very long procedure involving multiple maps of the right and left atria, use of cryoablation balloon as well as the use of RF ablation The left atrial roof was ablated With cryoablation the posterior wall was ablated Anterior left atrial RF ablation was performed Mitral isthmus ablation was performed Atrial flutter ablation was performed After each ablation repeat activation mapping was performed This procedure took approximately 5 hours
[2023-09-25] MEDS: METOPROLOL TARTRATE 50 MG TAB PO SCH (21:25)
[2023-09-25] MEDS: DABIGATRAN 150 MG CAP PO SCH (21:25)
[2023-09-26] MEDS ORDERED: PANTOPRAZOLE 40 MG TABLET PO SCH (07:30)
[2023-09-26] MEDS: DABIGATRAN 150 MG CAP PO SCH (08:40)
[2023-09-26] MEDS: METOPROLOL TARTRATE 50 MG TAB PO SCH (08:40)
[2023-09-26] MEDS ORDERED: LINAGLIPTIN 5 MG TABLET PO SCH (09:00)
[2023-09-26] MEDS ORDERED: ATORVASTATIN 40 MG TAB PO SCH (12:00)
--- NOTE | 2023-09-26 13:30 | P.DS ---
Providers Attending physician: Adriel Agrawal Primary care physician: [facility] Course: Patient is doing well. His groins have healed well He has no chest discomfort dizziness lightheadedness He is ambulating around the room to the bathroom On examination his pulse rate in the 70s, respirations normal Blood pressure 132/81 mmHg Normal heart sounds no murmurs or gallops or rub Lungs are clear no rhonchi no crackles Impression Persistent atrial fibrillation despite successful PVI and ablation of the left atrial septum, symptomatic with difficult rate control The preprocedure twelve-lead EKG suggests an atrial tachycardia Intraoperatively, the patient had multiple, simultaneous atrial tachycardias, #1 Redo atrial flutter ablation #2 left atrial roof ablation with termination of tachycardia, mid roof, slightly posterior width cryoablation at the site #3 left atrial posterior wall ablation #4 mitral isthmus line, 3 o'clock position in the HONDURAN view, with mild prolongation of the cycle length #5 anterior mitral line along anterior LA wall, with mild prolongation of cycle length Despite the mitral ablation, the patient's tachycardia, with concentric activation around the mitral annulus continued In fact during RF ablation in the mitral isthmus there was sudden shortening of the atrial tachycardia with concentric activation and then with subsequent completion of ablation this rapid tachycardia terminated but the underlying tachycardia mitral reentry continued At the end of the procedure right and left atrial mapping was performed once again to confirm the absence of any right atrial tachycardia and the continued presence of reentry around the mitral annulus This most likely represents a very thick mitral annulus and likely vein of Sadiq source of atrial tachycardia and a thick mitral annulus that perpetuates reentry, inability to transmurally ablate thick isthmus via the endocardial route He underwent electrical cardioversion at the end of the procedure If he has recurrence, we will proceed with alcohol ablation of the mitral isthmus via the vein of Sadiq, to achieve transmural thickness ablation Plan - Discharge Summary Discharge Rx Participant: No New Discharge Prescriptions: New Dabigatran [Pradaxa] 150 mg PO BID #180 capsule Metoprolol Tartrate [Lopressor] 100 mg PO BID #180 tablet Discontinued Dabigatran Etexilate Mesylate [Dabigatran Etexilate] 150 mg PO QAM dilTIAZem HCL 30 mg PO TID Metoprolol Tartrate [Lopressor] 150 mg PO BID No Action Pioglitazone [Actos] 15 mg PO 1700 sitaGLIPtin [Novuvia] 100 mg PO QAM Omeprazole 40 mg PO QAM allopurinoL [Zyloprim] 300 mg PO QAM Atorvastatin [Lipitor] 40 mg PO 1200 lisinopriL [Zestril] 2.5 mg PO QAM Ginkgo Bil[place] Extract [Ginkgo Biloba] 125 mg PO QAM Alpha Lipoic Acid 120 mg PO QAM Vitamin B Complex 1 cap PO DAILY Discharge Medication List Omeprazole 40 mg PO QAM 07/09/19 [History] Pioglitazone [Actos] 15 mg PO 1700 07/09/19 [History] allopurinoL [Zyloprim] 300 mg PO QAM 07/09/19 [History] sitaGLIPtin [Januvia] 100 mg PO QAM 07/09/19 [History] Atorvastatin [Lipitor] 40 mg PO 1200 08/21/19 [History] lisinopriL [Zestril] 2.5 mg PO QAM 06/30/23 [History] Alpha Lipoic Acid 120 mg PO QAM 09/22/23 [History] Ginkgo Bil[place] Extract [Ginkgo Biloba] 125 mg PO QAM 09/22/23 [History] Vitamin B Complex 1 cap PO DAILY 09/22/23 [History] Dabigatran [Pradaxa] 150 mg PO BID #180 capsule 09/25/23 [Rx] Metoprolol Tartrate [Lopressor] 100 mg PO BID #180 tablet 09/25/23 [Rx] Follow up Appointment(s)/Referral(s): Bebo Cavanaugh MD [STAFF PHYSICIAN] - 10/03/23 2:45 pm Patient Instructions/Handouts: Cardiac Ablation (GEN) Activity/Diet/Wound Care/Special Instructions: Post EP study - Ablation instructions 1. Keep access sites dry for 2 days. 2. No heavy lifting or straining for 2 days. 3. Avoid bending the hips repeatedly for 2 days. 4. You may go up and down stairs slowly Call if the following is noted 1. Bleeding, increasing swelling or pain at the access sites. 2. Increasing chest discomfort, especially upon taking a deep breath. 3. Increasing shortness of breath, at rest or with exertion. 4. Undue cough / phlegm 5. Difficulty or pain while swallowing. 6. Pain or change in color in the extremities. 7. Fever, chills, rigors. 8. Increasing headache or neurologic symptoms. 9. Dizziness, fainting, palpitations Anticoagulation with Pradaxa 150 mg TWICE daily Stop diltiazem Reduce metoprolol tartrate to 100 mg twice daily Discharge Disposition: HOME SELF-CARE
--- NOTE | 2023-09-26 13:34 | P.DS ---
Providers Attending physician: Adriel Agrawal Primary care physician: [facility] Course: Patient is doing well Heart sounds are normal Breath sounds are clear Pulse rate is in the 70s Twelve-lead EKG shows sinus mechanism with [address] depression him a asymmetric consistent with hypertensive disease Blood pressure 137/89 mmHg Impression Multiple simultaneous atrial tachycardias Past history of atrial fibrillation Status post ablation Residual mitral reentry, likely very thick mitral isthmus and likely vein of Sadiq sources Plan Home today on Pradaxa 150 g twice daily Reduce metoprolol to 100 mg twice daily Stop diltiazem Continue statins, continue lisinopril and other medications Follow-up with Dr. Calvo Please see separate more detailed discharge summary Plan - Discharge Summary Discharge Rx Participant: No New Discharge Prescriptions: New Dabigatran [Pradaxa] 150 mg PO BID #180 capsule Metoprolol Tartrate [Lopressor] 100 mg PO BID #180 tablet Discontinued Dabigatran Etexilate Mesylate [Dabigatran Etexilate] 150 mg PO QAM dilTIAZem HCL 30 mg PO TID Metoprolol Tartrate [Lopressor] 150 mg PO BID No Action Pioglitazone [Actos] 15 mg PO 1700 sitaGLIPtin [Januvia] 100 mg PO QAM Omeprazole 40 mg PO QAM allopurinoL [Zyloprim] 300 mg PO QAM Atorvastatin [Lipitor] 40 mg PO 1200 lisinopriL [Zestril] 2.5 mg PO QAM Ginkgo Biloba [place] Extract [Ginkgo Biloba] 125 mg PO QAM Alpha Lipoic Acid 120 mg PO QAM Vitamin B Complex 1 cap PO DAILY Discharge Medication List Omeprazole 40 mg PO QAM 07/09/19 [History] Pioglitazone [Actos] 15 mg PO 1700 07/09/19 [History] allopurinoL [Zyloprim] 300 mg PO QAM 07/09/19 [History] sitaGLIPtin [Januvia] 100 mg PO QAM 07/09/19 [History] Atorvastatin [Lipitor] 40 mg PO 1200 08/21/19 [History] lisinopriL [Zestril] 2.5 mg PO QAM 06/30/23 [History] Alpha Lipoic Acid 120 mg PO QAM 09/22/23 [History] Ginkgo Biloba [place] Extract [Ginkgo Biloba] 125 mg PO QAM 09/22/23 [History] Vitamin B Complex 1 cap PO DAILY 09/22/23 [History] Dabigatran [Pradaxa] 150 mg PO BID #180 capsule 09/25/23 [Rx] Metoprolol Tartrate [Lopressor] 100 mg PO BID #180 tablet 09/25/23 [Rx] Follow up Appointment(s)/Referral(s): Bebo Cavanaugh MD [STAFF PHYSICIAN] - 10/03/23 2:45 pm Patient Instructions/Handouts: Cardiac Ablation (GEN) Activity/Diet/Wound Care/Special Instructions: Post EP study - Ablation instructions 1. Keep access sites dry for 2 days. 2. No heavy lifting or straining for 2 days. 3. Avoid bending the hips repeatedly for 2 days. 4. You may go up and down stairs slowly Call if the following is noted 1. Bleeding, increasing swelling or pain at the access sites. 2. Increasing chest discomfort, especially upon taking a deep breath. 3. Increasing shortness of breath, at rest or with exertion. 4. Undue cough / phlegm 5. Difficulty or pain while swallowing. 6. Pain or change in color in the extremities. 7. Fever, chills, rigors. 8. Increasing headache or neurologic symptoms. 9. Dizziness, fainting, palpitations Anticoagulation with Pradaxa 150 mg TWICE daily Stop diltiazem Reduce metoprolol tartrate to 100 mg twice daily Discharge Disposition: HOME SELF-CARE
[2023-09-26 14:09] VITALS: BP 136/87; PULSE 73; RESP 17; TEMP 97.2
[2023-09-26] MEDS ORDERED: PIOGLITAZONE 15 MG TAB PO SCH (17:00)
== END 2023-09-26 14:18 | disposition home or self-care (01) ==
LOC: CATHEP 10:59 → 6NMEDSUR 18:45 → CATHEP 09-26 14:18
PROVIDERS: ATTEND Internal Medicine Clinical Cardiac Electrophysiology
DX: I48.19 Other persistent atrial fibrillation (principal); E11.9 Type 2 diabetes mellitus without complications; I10 Essential (primary) hypertension; F17.210 Nicotine dependence, cigarettes, uncomplicated; E78.5 Hyperlipidemia, unspecified; Z98.890 Other specified postprocedural states; Z86.73 Personal history of transient ischemic attack (TIA), and cerebral infarction without residual deficits; Z85.820 Personal history of malignant melanoma of skin; Z79.01 Long term (current) use of anticoagulants
CPT/HCPCS: 93655; 93656; 93657; 86900; 86901; 80048; 85025; 86850; C1759; C1894 ×2; C1769 ×3; C1760; C1766 ×2; C1730 ×2; C1731; C1733; C1732; J2001; J1644 ×2; Q9967

== ENCOUNTER 2023-10-03 16:07 | Observation (INO) | payer MEDICARE ==
[2023-10-03] MEDS ORDERED: CEPHALEXIN 500 MG CAP PO STA ×2 (16:17→18:03)
[2023-10-03] MEDS ORDERED: VANCOMYCIN IVPB ONE (16:18)
[2023-10-03] MEDS ORDERED: SODIUM CHLORIDE 0.9% IVPB ONE (16:18)
[2023-10-03 16:24] VITALS: BP 156/76; PULSE 80; RESP 16
[2023-10-03] MEDS ORDERED: SODIUM CHLORIDE 0.9% 500 ML 500 ML IV SCH (16:30)
[2023-10-03] MEDS ORDERED: VANCOMYCIN 1,500 MG in SODIUM CHLORIDE 0.9% 500 ML 500 ML IVPB ONE (16:30)
--- NOTE | 2023-10-03 19:00 | P.HPCAR ---
History of Present Illness This is Dr. Agrawal dictating an H/P on this patient The patient was interviewed and examined IMPRESSION / ASSESSMENT: Suture site infection right groin History of atrial fibrillation status post ablation Patient admitted for IV antibiotics the patient did not want to stay in the hospital PLAN: IV vancomycin By mouth Keflex Follow-up in the office 5 days Continue all other cardiac medications and continue anticoagulation HPI Patient came to the office today and saw Dr. Calvo He has suture in the right groin which had not been removed at discharge The site was infected swollen red He denied any fever chills or any systemic symptoms ROS: No fever chills or rigors, no cough, phlegm or expectoration, no nausea, vomiting or diarrhea, no hematuria, dysuria, no musculoskeletal complaints, no strokes or seizures, no skin lesions. EXAMINATION: Pulse rate in the 80s sinus mechanism respirations normal Blood pressure 156/76. His mercury Heart sounds are normal and regular Lungs are clear Groin on the right side reveals inflammation and redness related to unremoved [id number] suture REVIEW OF LABS, ECG & MEDICAL DATA Medications reviewed and include Pradaxa Discharge note This is a same-day discharge He'll be discharged home on oral Keflex 500 mg 4 times a day for 10 days He will see Dr. Calvo in 5 days He received IV vancomycin 1.5 g prior to discharge along with 1000 mg of by mouth Keflex Physical Exam Vitals: Vital Signs Pulse Resp BP Pulse Ox 10/03/23 16:20 80 16 156/76 97 Intake and Output 10/03/23 10/03/23 10/03/23 06:59 14:59 22:59 Other: Weight 98.43 kg Past Medical History Past Medical History: Atrial Fibrillation, Atrial Flutter, Cancer, CVA/TIA, Diabetes Mellitus, GERD/Reflux, Hyperlipidemia, Hypertension, Memory Impairment Additional Past Medical History / Comment(s): SEE DR. AGRAWAL'S H&P. 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 History of Any Multi-Drug Resistant Organisms: None Reported Past Surgical History: Cardiac Ablation, Heart Catheterization, Orthopedic Surgery, Tonsillectomy Additional Past Surgical History / Comment(s): heart cath no stent 07/09/2019, melanoma removed from back, arthroscopy rt knee, RK eye surgery Past Anesthesia/Blood Transfusion Reactions: No Reported Reaction Past Psychological History: Anxiety Additional Psychological History / Comment(s): denies any hx Smoking Status: Former smoker Past Alcohol Use History: Occasional Additional Past Alcohol Use History / Comment(s): Past hx occ cigar use, quit smoking cigarettes 36 yrs ago, smoked cigarettes for 10 yrs Past Drug Use History: None Reported - Past Family History Mother Family Medical History: Cancer Additional Family Medical History / Comment(s): Pancreatic CA Father Additional Family Medical History / Comment(s): suicide d/t CA Physical Examination Vital Signs Pulse Resp BP Pulse Ox 10/03/23 16:20 80 16 156/76 97 Intake and Output 10/03/23 10/03/23 10/03/23 06:59 14:59 22:59 Other: Weight 98.43 kg Results Current Medications Generic Name Dose Route Start Last Admin Trade Name Freq PRN Reason Stop Dose Admin Sodium Chloride 500 mls @ 20 mls/hr 10/03/23 16:30 10/03/23 16:29 Saline 0.9% IV 20 mls/hr .Q24H WILMER Administration Vancomycin HCl 1,500 mg/ 500 mls @ 167 mls/hr 10/03/23 16:30 10/03/23 17:09 Sodium Chloride IVPB 10/03/23 19:29 167 mls/hr ONCE ONE Administration Intake and Output 10/03/23 10/03/23 10/03/23 06:59 14:59 22:59 Other: Weight 98.43 kg Patient Weight 10/04/23 06:59 Weight 98.43 kg
--- NOTE | 2023-10-03 19:01 | P.DS ---
Providers Date of admission: 10/03/23 16:07 Attending physician: Adriel Agrawal Primary care physician: Stated None Hospital Course: This is Dr. Agrawal dictating an same-day discharge note on this patient The patient was interviewed and examined IMPRESSION / ASSESSMENT: Suture site infection right groin History of atrial fibrillation status post ablation Patient admitted for IV antibiotics the patient did not want to stay in the hospital PLAN: IV vancomycin By mouth Keflex Follow-up in the office 5 days Continue all other cardiac medications and continue anticoagulation HPI Patient came to the office today and saw Dr. Calvo He has suture in the right groin which had not been removed at discharge The site was infected swollen red He denied any fever chills or any systemic symptoms ROS: No fever chills or rigors, no cough, phlegm or expectoration, no nausea, vomiting or diarrhea, no hematuria, dysuria, no musculoskeletal complaints, no strokes or seizures, no skin lesions. EXAMINATION: Pulse rate in the 80s sinus mechanism respirations normal Blood pressure 156/76. His mercury Heart sounds are normal and regular Lungs are clear Groin on the right side reveals inflammation and redness related to unremoved [id number] suture REVIEW OF LABS, ECG & MEDICAL DATA Medications reviewed and include Pradaxa Discharge note This is a same-day discharge He'll be discharged home on oral Keflex 500 mg 4 times a day for 10 days He will see Dr. Calvo in 5 days He received IV vancomycin 1.5 g prior to discharge along with 1000 mg of by mouth Keflex Plan - Discharge Summary New Discharge Prescriptions: No Action Pioglitazone [Actos] 15 mg PO 1700 sitaGLIPtin [Januvia] 100 mg PO QAM Omeprazole 40 mg PO QAM allopurinoL [Zyloprim] 300 mg PO QAM Atorvastatin [Lipitor] 40 mg PO 1200 lisinopriL [Zestril] 2.5 mg PO QAM Ginkgo Biloba [place] Extract [Ginkgo Biloba] 125 mg PO QAM Alpha Lipoic Acid 120 mg PO QAM Dabigatran [Pradaxa] 150 mg PO BID #180 capsule Vitamin B Complex 1 cap PO DAILY Metoprolol Tartrate [Lopressor] 100 mg PO BID #180 tablet Discharge Medication List Omeprazole 40 mg PO QAM 07/09/19 [History] Pioglitazone [Actos] 15 mg PO 1700 07/09/19 [History] allopurinoL [Zyloprim] 300 mg PO QAM 07/09/19 [History] sitaGLIPtin [Januvia] 100 mg PO QAM 07/09/19 [History] Atorvastatin [Lipitor] 40 mg PO 1200 08/21/19 [History] lisinopriL [Zestril] 2.5 mg PO QAM 06/30/23 [History] Alpha Lipoic Acid 120 mg PO QAM 09/22/23 [History] Ginkgo Biloba [place] Extract [Ginkgo Biloba] 125 mg PO QAM 09/22/23 [History] Vitamin B Complex 1 cap PO DAILY 09/22/23 [History] Dabigatran [Pradaxa] 150 mg PO BID #180 capsule 09/25/23 [Rx] Metoprolol Tartrate [Lopressor] 100 mg PO BID #180 tablet 09/25/23 [Rx] Follow up Appointment(s)/Referral(s): Bebo Cavanaugh MD [STAFF PHYSICIAN] - 1 Week (Follow up in 5 days) Patient Instructions/Handouts: Wound Infection (DC) Activity/Diet/Wound Care/Special Instructions: Take first dose of KEFLEX tonight when you get home. Follow-up with Dr. Cavanaugh in the office on Monday.
== END 2023-10-03 19:50 | disposition home or self-care (01) ==
LOC: 6NMEDSUR 16:07
PROVIDERS: ADMIT Internal Medicine Clinical Cardiac Electrophysiology; ATTEND Internal Medicine Clinical Cardiac Electrophysiology
DX: T81.49XA Infection following a procedure, other surgical site, initial encounter (principal); I48.91 Unspecified atrial fibrillation; E11.9 Type 2 diabetes mellitus without complications; I10 Essential (primary) hypertension; E78.5 Hyperlipidemia, unspecified; K21.9 Gastro-esophageal reflux disease without esophagitis; F41.9 Anxiety disorder, unspecified; Z85.820 Personal history of malignant melanoma of skin; Z85.828 Personal history of other malignant neoplasm of skin; Z86.73 Personal history of transient ischemic attack (TIA), and cerebral infarction without residual deficits; Z87.891 Personal history of nicotine dependence
CPT/HCPCS: 96365; 96366; G0379; G0378; J3370

== ENCOUNTER → 2024-01-13 | Outpatient (CLI) | payer MEDICARE ==
--- NOTE | 2024-01-13 09:43 | MR ---
EXAMINATION TYPE: MR hip RT wo con DATE OF EXAM: 01/13/2024 COMPARISON: Outside CT abdomen and pelvis June 25, 2022 HISTORY: Right hip pain x 3 months. Standard multiplanar, multisequence MRI departmental protocol Multiplanar, multisequence images of the pelvis focus on both hips were acquired without contrast. FINDINGS: [id number] axial joint space loss with mild acetabular spurring of both hips is seen. Symmetric tiny bilateral joint effusions presumed physiologic. Femoral head shapes are maintained bi laterally. No increased T2 signal to suggest osseous edema. No serpiginous diminished T1 signal to mckay ggest avascular necrosis. Muscle bulk is maintained bilaterally. No significant groin hernia or adeno carrol is identified. No suspicious bowel dilatation. No free fluid in the pelvis. Urinary bladder is unremarkable. Prostat e gland is stable and mildly enlarged in size. IMPRESSION: Mild to moderate degenerative changes in both hips as detailed above.
== END | disposition home or self-care (01) ==
LOC: RADMRIMAIN 07:29
PROVIDERS: ATTEND Orthopaedic Surgery
DX: M16.11 Unilateral primary osteoarthritis, right hip (principal); M16.12 Unilateral primary osteoarthritis, left hip; E11.9 Type 2 diabetes mellitus without complications; M87.051 Idiopathic aseptic necrosis of right femur; M25.552 Pain in left hip; M25.551 Pain in right hip

== ENCOUNTER → 2025-03-24 | Outpatient (CLI) | payer MEDICARE ==
--- NOTE | 2025-03-24 17:27 | MR ---
INDICATION: Patient age:Male; 74 years old; Reason for study: G31.84 MILD COGNITIVE IMPAIRMENT; [facility]. COMPARISON: Brain 01/30/2023. TECHNIQUE: Multi planar, multi sequence imaging was performed through the brain without the administr ation of intravenous contrast. FINDINGS: The tejeda-white junctions and basal cisterns appear unremarkable. Diffuse cerebral and cerebellar atro phy redemonstrated. No hydrocephalus with mild prominence of the ventricular system due to levels of cerebral atrophy. Incidental septum pellucidum cavum et vergae. Diffusion-weighted imaging shows no e vidence of restricted diffusion to suggest acute/subacute infarct. Intracranial arterial flow voids a re maintained. Midline structures show no abnormality. Few stable scattered foci of high T2 signal in tensity are seen within the periventricular and deep white matter. The susceptibility weighted images do not reveal any evidence for micro-hemorrhage. The bone marrow signal is within normal limits. The paranasal sinuses and globes are unremarkable. IMPRESSION: 1. No evidence of intracranial mass or acute/subacute infarct. 2. Similar nonspecific minimal white matter changes, likely related to small vessel ischemic disease. 3. Similar mild cerebral and cerebellar atrophy. [facility], , 03/24/2025 5:24 PM
== END | disposition home or self-care (01) ==
LOC: RADMRIMAIN 16:25
PROVIDERS: ATTEND Psychiatry & Neurology Neurology
DX: G31.84 Mild cognitive impairment of uncertain or unknown etiology (principal); G31.1 Senile degeneration of brain, not elsewhere classified; R90.82 White matter disease, unspecified
CPT/HCPCS: 70551